=== PATIENT | male | born 1950 | race Caucasian/White ===

== ENCOUNTER 2020-02-11 23:41 | Emergency (ER) | payer MEDICARE, SELFPAY ==
[2020-02-12 00:01] VITALS: BP 133/73; PULSE 131; RESP 26; TEMP 38.7; O2SAT 97; BMI 34.4
--- NOTE | 2020-02-12 00:09 | W.ED.EXTPRO ---
HPI - Extremity Problem General: Chief complaint: Extremity Problem,Nontraumatic Stated complaint: GOUT Time Seen by Provider: 02/12/20 00:09 Source: patient Mode of arrival: ambulatory Limitations: no limitations History of Present Illness: HPI Narrative: Patient comes in today with complaints of a gout flare for the last 3 weeks. Patient reports that started about 3 weeks ago he was seen at [facility] and diagnosed with gout. Patient was started on steroids and was treated for his gout at that time. For last 2 to 3 days patient states he has had worsening symptoms of the pain and is now in his bilateral wrists, where before it was in his ankles. Patient reports just being in pain all over. Patient appears unwell. Patient appears in moderate pain. Review of Systems General: Reports: 10 or more systems reviewed and unremarkable except in HPI and below Musc: Reports: joint pain Physical Exam Const: COMMON NORMALS: no acute distress and patient oriented x3 GENERAL APPEARANCE: cooperative HENMT: COMMON NORMALS: normocephalic, TM's normal bilaterally and Normal external nose present HEAD & SCALP: normal to inspection and normocephalic NOSE: Normal external nose present TYMPANIC MEMBRANE: TM's normal bilaterally MOUTH: Normal oral and palatal mucosa present THROAT: posterior oropharynx normal Eye: GENERAL EYE: appearance normal, both eyes and all related structures Neck/C-Spine: COMMON NORMALS: full ROM Lymph: LYMPHATIC: no lymphadenopathy noted Chest: COMMONS NORMALS: normal inspection of the chest Resp: COMMON NORMALS: normal respiratory effort EFFORT & INSPECTION: Yes able to speak in complete sentences Cardio: COMMON NORMALS: regular rate and regular rhythm RATE: regular rate RHYTHM: regular rhythm GI: COMMON NORMALS: non-tender : COMMON NORMALS: Yes no CVA tenderness BLADDER/KIDNEY EXAM: Yes no CVA tenderness Back/Pelvis: COMMON NORMALS: no CVA tenderness and thoracic and lumbar spine normal to inspection Extremity: COMMON NORMALS: normal to inspection Neuro: COMMON NORMALS: patient oriented x3 and moves all extremities Psych: COMMON NORMALS: mental status grossly normal and cooperative Skin: COMMON NORMALS: no rashes or lesions noted GENERAL SKIN EXAM: no rashes or lesions noted Course Vital Signs: Vital signs: Vital Signs Temperature 101.7 F H 02/12/20 00:01 Pulse Rate 104 H 02/12/20 01:08 Respiratory Rate 20 H 02/12/20 01:08 Blood Pressure 142/69 08/22/20 01:08 Pulse Oximetry 96 02/12/20 01:08 MDM - Extremity (Nontraumatic) MDM Narrative: Medical decision making narrative: Patient presents today with complaints of arthralgia for 3 weeks. Patient was treated with steroids for concerns of gout. Patient appears well. Patient appears in moderate pain. Respirations were even lungs were clear to auscultation. Patient had no redness or swelling to the wrist. Patient complained of pain mainly at the wrist. Vital signs noted an elevation in temperature at 101.7. Differential diagnosis includes but not limited to infection of unknown source, gout, rheumatoid arthritis, urinary tract infection, pneumonia. Laboratory values noted elevation in white blood cell count, and elevation in blood glucose. Patient had some mild hyponatremia at 129. Analysis was positive for leukocyte. Chest x-ray was normal. Patient was medicated with ketorolac and morphine for his pain. Patient was given 1 g of Rocephin for concerns of infection. Suspect urinary tract infection along with gout flare. Reviewed this with patient and his bowels who reported understanding of care plan and need for follow-up. Lab Data: Labs: Lab Results 02/12/20 02/12/20 02/12/20 Range/Units 00:45 00:45 00:45 WBC 20.8 H (4.0-10.0) 10^3/ uL RBC 4.08 L (4.1-5.3) 10^6/u L Hgb 11.8 (11.7-16.6) g/dL Hct 38.5 L (42.0-52.0) % MCV 94.4 H (80-94) fL MCH 28.9 (28.0-34.0) pg MCHC 30.6 (30.0-36.0) g/dL RDW 12.5 (12.1-15.1) % Plt Count 384 (130-400) 10^3/c mm MPV 10.6 H (7.4-10.4) fL Neut % (Auto) 84.6 % Lymph % (Auto) 5.5 % [place] % (Auto) 8.6 % Eos % (Auto) 0.0 % Baso % (Auto) 0.3 % Neut # (Auto) 17.56 H (1.8-7.7) 10^3/u L Lymph # (Auto) 1.1 (0.8-4.8) 10^3/u L [place] # (Auto) 1.8 H (0.2-0.9) 10^3/u L Eos # (Auto) 0.0 (0.0-0.8) 10^3/u L Baso # (Auto) 0.1 (0.0-0.1) 10^3/u L Nucleated RBC % (a uto) 0 % Nucleated RBCs # 0.0 /100WBC Sodium 129 L (136-145) mmol/L Potassium 4.4 (3.5-5.1) mmol/L Chloride 92 L (98-107) mmol/L Carbon Dioxide 25 (22-29) mmol/L Anion Gap 16.4 (5-19) BUN 15 (8-23) mg/dL Creatinine 0.9 (0.7-1.2) mg/dL GFR Calculation 83.7 L (90-130) mL/min Glucose 283 H (65-115) mg/dL Calculated Osmolal ity 275 L (285-295) mOsm/k g Lactic Acid 1.3 (0.5-2.2) mmol/L Uric Acid 4.2 (3.4-7.0) mg/dL Calcium 9.2 (8.5-10.5) mg/dL Total Bilirubin 0.6 (0.15-1.2) mg/dL AST 17 (0-40) U/L ALT 40 (0-41) U/L Alkaline Phosphata se 78 (40-130) IU/L Total Protein 6.7 (6.6-8.7) g/dL Albumin 3.9 (3.5-5.2) g/dL Globulin 2.8 (1.3-4.6) g/dL Urine Color (Yellow) Urine Appearance (CLEAR) Urine pH (5-7) Ur Specific Gravit y (1.005-1.030) Urine Protein (Negative) Urine Glucose (UA) (Normal) Urine Ketones (Negative) Urine Blood (Negative) Urine Nitrate (Negative) Urine Bilirubin (NEGATIVE) Urine Urobilinogen (Negative) mg/dL Ur Leukocyte Ella ase (Negative) Urine RBC (0-2) /hpf Urine WBC (0-5) /hpf Ur Squamous Epith Cells (0-5) Amorphous Sediment Urine Bacteria (NONE) Hyaline Casts Urine Mucus 02/12/20 Range/Units 01:25 WBC (4.0-10.0) 10^3/ uL RBC (4.1-5.3) 10^6/u L Hgb (11.7-16.6) g/dL Hct (42.0-52.0) % MCV (80-94) fL MCH (28.0-34.0) pg MCHC (30.0-36.0) g/dL RDW (12.1-15.1) % Plt Count (130-400) 10^3/c mm MPV (7.4-10.4) fL Neut % (Auto) % Lymph % (Auto) % [place] % (Auto) % Eos % (Auto) % Baso % (Auto) % Neut # (Auto) (1.8-7.7) 10^3/u L Lymph # (Auto) (0.8-4.8) 10^3/u L [place] # (Auto) (0.2-0.9) 10^3/u L Eos # (Auto) (0.0-0.8) 10^3/u L Baso # (Auto) (0.0-0.1) 10^3/u L Nucleated RBC % (a uto) % Nucleated RBCs # /100WBC Sodium (136-145) mmol/L Potassium (3.5-5.1) mmol/L Chloride (98-107) mmol/L Carbon Dioxide (22-29) mmol/L Anion Gap (5-19) BUN (8-23) mg/dL Creatinine (0.7-1.2) mg/dL GFR Calculation (90-130) mL/min Glucose (65-115) mg/dL Calculated Osmolal ity (285-295) mOsm/k g Lactic Acid (0.5-2.2) mmol/L Uric Acid (3.4-7.0) mg/dL Calcium (8.5-10.5) mg/dL Total Bilirubin (0.15-1.2) mg/dL AST (0-40) U/L ALT (0-41) U/L Alkaline Phosphata se (40-130) IU/L Total Protein (6.6-8.7) g/dL Albumin (3.5-5.2) g/dL Globulin (1.3-4.6) g/dL Urine Color Yellow (Yellow) Urine Appearance Clear (CLEAR) Urine pH 5 (5-7) Ur Specific Gravit y 1.020 (1.005-1.030) Urine Protein Trace (Negative) Urine Glucose (UA) 1+ (Normal) Urine Ketones 1+ H (Negative) Urine Blood Neg (Negative) Urine Nitrate Negative (Negative) Urine Bilirubin 1+ H (NEGATIVE) Urine Urobilinogen Norm (Negative) mg/dL Ur Leukocyte Ella ase Trace H (Negative) Urine RBC 0-4 H (0-2) /hpf Urine WBC 0-4 H (0-5) /hpf Ur Squamous Epith Cells 0-4 H (0-5) Amorphous Sediment Trace Urine Bacteria Trace (NONE) Hyaline Casts 0-4 H Urine Mucus 4+ Discharge Plan Discharge Patient Disposition: Home Clinical Impression: Acute UTI, History of gout Arthralgia Qualifiers: Joint pain location: unspecified Qualified Code(s): M25.50 - Pain in unspecified joint Condition: Stable Prescriptions: New colchicine 0.6 mg tablet 0.6 mg PO BID Qty: 6 RF: 0 Bactrim DS 800-160 mg tablet 1 tab PO BID 14 Days Qty: 28 RF: 0 diclofenac sodium 75 mg tablet,delayed release (DR/EC) 75 mg PO BID Qty: 20 RF: 0 Discharge Orders: Discharge Order (Routine); Ordered 02/12/20 Ordered By: Nayan Lehman Referrals: Malissa Suresh DO [Primary Care Provider] - Discharge Diet: Usual diet Discharge Activity: Increase activity as tolerated Patient Instructions: Urinary Tract Infection in Men (ED) Activity Restrictions/Additional Instructions: Home and rest. Medications as directed. Use colchicine, take 2 tablets with prescription feeling and then repeat 1 tablet in 1 hour. You can repeat that in 3 days if needed. It is strictly for gout and will provide relief quickly. Use diclofenac for arthralgia. Take Bactrim as directed for antibiotic. Follow-up with primary care in 3 to 5 days for recheck. Return to the emergency room for worsening symptoms or new concerns. Coding Level of Care Code ED Human Factors Advisor Lead for [place] Fwd Exam Comprehensive
--- NOTE | 2020-02-12 00:20 | XR_ITS ---
WS: [id number] EXAM: AP CHEST: PORTABLE UPRIGHT DATE OF EXAM: 02/12/2020, 0120 hours COMPARISON: NONE HISTORY: Patient is 69 years old with fever. FINDINGS: The cardiac silhouette is normal in size. The mediastinal contours are normal other than minimal c alcified plaque in the aorta. The pulmonary vascularity is normal. Chronic lung changes are seen. Lungs are slightly hyperinflated. No area of consolidation. There is no effusion or pneumothorax. M ultiple old right rib fractures and right clavicle fracture noted. XR/XR chest 1V portable [id number] IMPRESSION: Chronic lung changes. No acute pulmonary disease. Multiple old right rib fractures and right clavicle fracture.
[2020-02-12] MEDS: sodium chloride 0.9% 500 ML IV (00:40)
[2020-02-12] MEDS: ketorolac 30 mg/mL INJ 15 MG IVP ×2 (00:45→02:57)
[2020-02-12 00:52] LABS: Basophils # 0.1 10^3/uL (0.0-0.1); Basophils % 0.3 %; Hematocrit 38.5 % (42.0-52.0); Hemoglobin 11.8 g/dL (11.7-16.6); Lymphocytes # 1.1 10^3/uL (0.8-4.8); Lymphocytes % 5.5 %; Mean Corpuscular HGB Conc 30.6 g/dL (30.0-36.0); Mean Corpuscular Hemoglobin 28.9 pg (28.0-34.0); Mean Corpuscular Volume 94.4 fL (80-94); Mean Platelet Volume 10.6 fL (7.4-10.4); Monocytes # 1.8 10^3/uL (0.2-0.9); Monocytes % 8.6 %; Neutrophils # 17.56 10^3/uL (1.8-7.7); Neutrophils % 84.6 %; Nucleated Red Blood Cells % 0 %; Platelet Count 384 10^3/cmm (130-400); Red Blood Count 4.08 10^6/uL (4.1-5.3); Red Cell Distribution Width 12.5 % (12.1-15.1); White Blood Count 20.8 10^3/uL (4.0-10.0)
[2020-02-12 01:08] VITALS: BP 142/69; PULSE 104; RESP 20; O2SAT 96
[2020-02-12 01:09] LABS: Lactic Sepsis W/Reflex 1.3 mmol/L (0.5-2.2)
[2020-02-12 01:23] LABS: Alanine Aminotransferase 40 U/L (0-41); Albumin Level 3.9 g/dL (3.5-5.2); Alkaline Phosphatase 78 IU/L (40-130); Anion Gap 16.4 (5-19); Aspartate Amino Transferase 17 U/L (0-40); Blood Urea Nitrogen 15 mg/dL (8-23); Calcium 9.2 mg/dL (8.5-10.5); Carbon Dioxide 25 mmol/L (22-29); Chloride 92 mmol/L (98-107); Creatinine Clr Calc Pharmacy 87.1898; Globulin 2.8 g/dL (1.3-4.6); Glomerular Filtration Rate 83.7 mL/min (90-130); Glucose 283 mg/dL (65-115); Osmolality Calculated 275 mOsm/kg (285-295); Potassium 4.4 mmol/L (3.5-5.1); Sodium 129 mmol/L (136-145); Total Bilirubin 0.6 mg/dL (0.15-1.2); Total Protein 6.7 g/dL (6.6-8.7); Uric Acid 4.2 mg/dL (3.4-7.0)
[2020-02-12 01:53] LABS: Add Urine Microscopic? YES; Bilirubin Urine 1+ (NEGATIVE); Blood Urine Neg (Negative); Glucose Urine UA 1+ (Normal); Ketones Urine 1+ (Negative); Leukocyte Esterase Urine Trace (Negative); Nitrate Urine Negative (Negative); Protein Urine Trace (Negative); Urine Appearance Clear (CLEAR); Urine Color Yellow (Yellow); Urobilinogen Urine Norm (Negative); pH Urine 5 (5-7)
[2020-02-12 01:58] LABS: Add Urine Culture? No; Amorphous Sediment Urine TRACE; Bacteria Urine TRACE; Hyaline Casts Urine 0-4; Mucus Urine 4+; RBC Urine 0-4 /hpf (0-2); Squamous Epithelial Cell Urine 0-4 (0-5); WBC Urine 0-4 /hpf (0-5)
[2020-02-12 02:57] VITALS: RESP 18
[2020-02-12] MEDS: morphine 4 mg/mL SDV 1 mL IVP (02:57)
[2020-02-12] MEDS: cefTRIAXone 1,000 MG in sodium chloride 0.9% (plus) 50 ML 100 MG IV (02:58)
--- NOTE | 2020-02-14 11:05 | PC.NURSE ---
Dr. mia requested that I contact the pt to see how he was feeling. I called via phone and the answered. She stated that the pt was feeling much better and was still taking the meds prescribed. No more fevers noted by her or the pt.
== END 2020-02-12 03:56 | disposition home or self-care (01) ==
PROVIDERS: Emergency Provider Nurse Practitioner Family; PCP Family Medicine
DX: N39.0 Urinary tract infection, site not specified (principal); M25.50 Pain in unspecified joint
CPT/HCPCS: 12345; 71045; 80053; 81001; 83605; 84550; 85025; 87040; 96365; 96375; 96376; 99282; 99284; J0696; J1885; J2270; J7040

== ENCOUNTER 2022-03-19 12:09 | Inpatient (IN) | payer MEDICARE, SELFPAY ==
[2022-03-19] VITALS (42 sets, daily range): BP systolic 74–156; BP diastolic 54–115; PULSE 132–162; RESP 12–33; TEMP 36.3–37.2; O2SAT 90–100; BMI 28.8
--- NOTE | 2022-03-19 12:54 | XR_ITS ---
WS: [id number] Exam: XR chest 1V portable [id number] Date/Time of Exam: 03/19/2022 12:58 PM Reason For Exam: dyspnea Comparison 02/12/2020. There is groundglass infiltrate in the right lower lung zone. There may also be some infiltrate in th e left retrocardiac region. The heart is enlarged. Pulmonary vascularity is increased. The lungs are fully expanded. Chronic blunting of the right costophrenic angle probably representing pleural thicke martha. The mediastinum is normal in contour. Bony structures are intact. XR/XR chest 1V portable [id number] IMPRESSION: 1. Groundglass infiltrate in the right lung base suggesting pneumonia. There m ay also be some infiltrate in the left retrocardiac region. This could be Covid pneumonia. 2. Cardiac enlargement with increased pulmonary vascularity. 3. Chronically blunted right costophrenic angle probably representing pleural t hickening.
--- NOTE | 2022-03-19 12:55 | ED_ITS ---
HPI - General Adult General: Chief complaint: Shortness of Breath/Dyspnea Stated complaint: Dr. Suresh sent for blood sugar Time Seen by Provider: 03/19/22 12:47 History of Present Illness: Patient is a 72-year-old male with a history of hypertension, COPD, CHF presenting to the emergency room with concerns of worsening dyspnea and fast heart rate. Patient was seen earlier today by . She was found to have glucose of over 800. Patient was then told to come to the emergency room for further evaluation. On arrival, patient tells me he has been feeling short of breath for about a month. Patient denies any fever/chills cough, productive sputum, chest pain, diarrhea melena hematochezia. No abdominal complaints. He denies any melena/hematochezia, or complaints. Onset: 1 month ago Duration:1 month Location:home Severity:moderate Associated symptoms: Reports dyspnea; Deny chest pain, nausea, rash, palpitations or vomiting Review of Systems Const: Denies: fever(s) or chills Eyes: Denies: change in vision ENMT: Denies: mouth pain Card: Denies: chest pain or palpitations Resp: Reports: dyspnea; Denies: non-productive cough GI: Denies: abdominal pain, nausea, vomiting or diarrhea : Denies: dysuria Musc: Denies: extremity pain Skin/Breast: Denies: rash or new lesions Neuro: Denies: weakness in extremities Psych: Reports: other (Normal mood) Tk/Lymph: Denies: easy bruising PFSH ED PFSH: Medical History Atrial flutter COPD (chronic obstructive pulmonary disease) Hypercapnic respiratory failure Hypertension Hypoxemia Social History Smoking and tobacco status: former smoker Alcohol intake: never Substance/Drug Use: never Physical Exam Const: COMMON NORMALS: alert HENMT: COMMON NORMALS: atraumatic HEAD & SCALP: atraumatic MOUTH: moist mucous membranes abnormal Eye: COMMON NORMALS: EOMs intact bilaterally and conjunctivae normal CONJUNCTIVA: Yes conjunctivae normal Neck/C-Spine: COMMON NORMALS: full ROM and supple Resp: COMMON NORMALS: normal respiratory effort and clear to auscultation bilaterally AUSCULTATION: clear to auscultation bilaterally OTHER: +hyperpnea Cardio: RATE: tachycardic GI: COMMON NORMALS: Soft to palpation and non-tender PALPATION: Yes Soft to palpation OTHER: No focal TTP. NO guarding rebound, guarding, rigidity. No CVA tenderness to percussion. Neg Lowery/Neg McBurney's point tenderness, no suprabupic tenderness to palpation. Extremity: COMMON NORMALS: full ROM Neuro: SENSORIUM/ORIENTATION: Yes alert MOTOR EXAM: No Abnormal motor strength present and Other motor observations present (no focal motor deficits) OTHER: 1+ lower extremity edema AAOx1 confusion, moving all extremities History limited by AMS Psych: COMMON NORMALS: speech normal SPEECH: Yes normal speech MOOD & AFFECT: Yes euthymic mood Course Vital Signs: Vital signs: Vital Signs Temperature 97.4 F L 03/19/22 12:20 Pulse Rate 141 H 03/19/22 12:20 Respiratory Rate 18 03/19/22 12:20 Blood Pressure 132/76 03/19/22 12:20 Pulse Oximetry 94 03/19/22 12:20 Oxygen Delivery Me thod 03/19/22 12:20 Oxygen Flow Rate 4 03/19/22 12:20 MDM - General Adult Medical Decision Making Patient is a 72-year-old male with a history of hypertension, COPD, CHF presenting to the emergency room with concerns of worsening dyspnea and fast heart rate. Physical exam, patient is noted to be AAO x1, moving all extremity, confused and somnolent with hyperpnea Patient was found to be in regular narrow complex tachycardia on the applications programmer. Initial glucose of 774. Patient is noted to have an anion gap with positive serum ketones findings consistent with DKA today. Patient also has a white count 25.4. X-ray chest shows possible pneumonia. Patient was vancomycin, cefepime, azithromycin. Patient received LR and is currently on an insulin drip. EKG showed atrial fibrillation with RVR. Patient received 20 mg of Cardizem. I suspect the atrial fibrillation is likely compensatory. Pending UA and COVID at this time. Disposition: admission Lab Data : 03/19/22 13:19 03/19/22 13:19 Radiology Impressions Chest X-Ray 03/19/22 12:54 IMPRESSION: 1. Groundglass infiltrate in the right lung base suggesting pneumonia. There may also be some infiltrate in the left retrocardiac region. This could be Covid pneumonia. 2. Cardiac enlargement with increased pulmonary vascularity. 3. Chronically blunted right costophrenic angle probably representing pleural thickening. Laboratory Results WBC 25.4 10^3/uL (4.0-10.0) H 03/19/22 13:19 RBC 4.82 10^6/uL (4.1-5.3) 03/19/22 13:19 Hgb 14.1 g/dL (11.7-16.6) 03/19/22 13:19 Hct 47.7 % (42.0-52.0) 03/19/22 13:19 MCV 99.0 fl (80-94) H 03/19/22 13:19 MCH 29.3 pg (28.0-34.0) 03/19/22 13:19 MCHC 29.6 g/dL (30.0-36.0) L 03/19/22 13:19 RDW 13.7 % (12.1-15.1) 03/19/22 13:19 Plt Count 327 10^3/cmm (130-400) 03/19/22 13:19 MPV 13.1 fL (7.4-10.4) H 03/19/22 13:19 Neut % (Auto) 86.5 % 03/19/22 13:19 Lymph % (Auto) 4.2 % 03/19/22 13:19 [place] % (Auto) 7.9 % 03/19/22 13:19 Eos % (Auto) 0.0 % 03/19/22 13:19 Baso % (Auto) 0.2 % 03/19/22 13:19 Neut # (Auto) 21.97 10^3/uL (1.8-7.7) H 03/19/22 13:19 Lymph # (Auto) 1.1 10^3/uL (0.8-4.8) 03/19/22 13:19 [place] # (Auto) 2.0 10^3/uL (0.2-0.9) H 03/19/22 13:19 Eos # (Auto) 0.0 10^3/uL (0.0-0.8) 03/19/22 13:19 Baso # (Auto) 0.1 10^3/uL (0.0-0.1) 03/19/22 13:19 Nucleated RBC % (auto) 0 % 03/19/22 13:19 Nucleated RBCs # 0.0 /100WBC 03/19/22 13:19 Specimen Type Arterial 03/19/22 12:56 Sample Site Radial, left 03/19/22 12:56 ABG pH 7.13 (7.35-7.45) L* 03/19/22 12:56 ABG pCO2 27.3 mmHg (35-45) L 03/19/22 12:56 ABG pO2 92.7 mmHg (80.0-100.0) 03/19/22 12:56 ABG HCO3 9.2 mmol/L (22-26) L 03/19/22 12:56 ABG O2 Saturation 96.0 03/19/22 12:56 ABG Base Excess -18.5 mmol/L (-2.0-2.0) L 03/19/22 12:56 Dercik Test Pos 03/19/22 12:56 A-a O2 Gradient 13.1 mmHg (5-10) H 03/19/22 12:56 Hematocrit 42.3 % (42-52) 03/19/22 12:56 Hgb O2 Saturation 93.9 % (95-100) L 03/19/22 12:56 Carboxyhemoglobin 1.4 %THgb (0.4-20.1) 03/19/22 12:56 Methemoglobin 0.8 % (0.4-1.5) 03/19/22 12:56 Total Hemoglobin 13.8 g/dL (14-18) L 03/19/22 12:56 Sodium 132.0 mmol/L (131-143) 03/19/22 12:56 Potassium 4.1 mmol/L (3.5-5.0) 03/19/22 12:56 Glucose 762.0 mg/dL (70-115) H 03/19/22 12:56 Ionized Calcium 1.3 mmol/L (1.1-1.4) 03/19/22 12:56 O2 Delivery Device Nc 03/19/22 12:56 O2 Liters/Min 3.0 % 03/19/22 12:56 FiO2 32.0 % 03/19/22 12:56 Guest Experience Manager ID Monro 03/19/22 12:56 Sodium 129 mmol/L (136-145) L 03/19/22 13:19 Potassium 5.4 mmol/L (3.5-5.1) H 03/19/22 13:19 Chloride 87 mmol/L (98-107) L 03/19/22 13:19 Carbon Dioxide 9 mmol/L (22-29) L 03/19/22 13:19 Anion Gap 38.4 (5-19) H 03/19/22 13:19 BUN 22 mg/dL (8-23) 03/19/22 13:19 Creatinine 1.4 mg/dL (0.7-1.2) H 03/19/22 13:19 GFR Calculation Not Reportable 03/19/22 13:19 Glucose 774 mg/dL (65-115) H* 03/19/22 13:19 POC Glucose > 600 mg/dL (70-110) H* 03/19/22 14:20 Calculated Osmolality 309 mOsm/kg (285-295) H 03/19/22 13:19 Lactate 3.2 mmol/L (0.5-2.2) H 03/19/22 13:56 Calcium 9.4 mg/dL (8.5-10.5) 03/19/22 13:19 Total Bilirubin 0.4 mg/dL (0.15-1.2) 03/19/22 13:19 AST 12 U/L (0-40) 03/19/22 13:19 ALT 13 U/L (0-41) 03/19/22 13:19 Alkaline Phosphatase 84 U/L (40-130) 03/19/22 13:19 Troponin T Baseline 68 ng/L (0-15) H 03/19/22 13:19 NT-Pro-B Natriuret Pep 6212 pg/mL (0-125) H 03/19/22 13:19 Total Protein 6.7 g/dL (6.6-8.7) 03/19/22 13:19 Albumin 3.7 g/dL (3.5-5.2) 03/19/22 13:19 Globulin 3.0 g/dL (1.3-4.6) 03/19/22 13:19 Lipase 30 U/L (13-60) 03/19/22 13:19 Serum Ketones Positive (Negative) H 03/19/22 13:19 Imaging Data Other Imaging: Radiologist's impression: [address] [place] [address] XRay Report Signed Patient: Randal Banks Unit #: [id number] : 1950 Age/Sex: 72 / M ADM Date: 03/19/22 Loc: ER Room/Bed: Attending Dr: Ordering Provider/Ordering MD: Chava Blankenship MD Date of Service: 03/19/22 Procedure(s): XR chest 1V portable [id number] Accession Number(s): [id number] Report Number: [id number] WS: [id number] Exam: XR chest 1V portable [id number] Date/Time of Exam: 03/19/2022 12:58 PM Reason For Exam: dyspnea Comparison 02/12/2020. There is groundglass infiltrate in the right lower lung zone. There may also be some infiltrate in the left retrocardiac region. The heart is enlarged. Pulmonary vascularity is increased. The lungs are fully expanded. Chronic blunting of the right costophrenic angle probably representing pleural thickening. The mediastinum is normal in contour. Bony structures are intact. XR/XR chest 1V portable [id number] IMPRESSION: 1. Groundglass infiltrate in the right lung base suggesting pneumonia.? There may also be some infiltrate in the left retrocardiac region. This could be Covid pneumonia. 2. Cardiac enlargement with increased pulmonary vascularity. 3. Chronically blunted right costophrenic angle probably representing pleural thickening. ? Dictated By: Gary Willett DO Signed By: Gary Willett DO Signed Date/Time: 03/19/22 1348 DD/ 1345 Critical Care Time Critical Care Time: Critical Care Time: Yes Total Critical Care Time: 36 Attestation: The high probability of a clinically significant, sudden or life threatening deterioration of the patient's endocrinological system(s) required my full and direct attention, intervention and personal management. The critical care time is as shown. This time is in addition to time spent performing any reported procedures but includes the following: [x] Data and vital sign review and interpretation [x] Patient assessment, examination and intervention [x] Documentation [x] Medication orders and management Discharge Plan Discharge Patient Disposition: Admitted As Inpatient Clinical Impression: Atrial fibrillation, DKA (diabetic ketoacidosis), Pneumonia, Altered mental status Coding Level of Care Code ED Camera Systems Engineer for Chg Fwd Exam Comprehensive
--- NOTE | 2022-03-19 13:00 | ECG_ITS ---
[facility] Test Date: 2022-03-19 Pat Name: Randal Banks Department: Room: Gender: Male Overlocker: : 1950 Requested By: Chava Blankenship Order Number: [id number] Lizabeth MD: Mechelle Álvarez M.D. Measurements Intervals [place] Rate: 180 P: PA: QRS: -68 QRSD: 111 T: 187 QT: 263 QTc: 455 Interpretive Statements ATRIAL FIBRILLATION WITH RAPID VENTRICULAR RESPONSE LEFT ANTERIOR FASCICULAR BLOCK [QRS AXIS <= -45, QR IN I, RS IN II] ST DEVIATION AND MODERATE T-WAVE ABNORMALITY, CONSIDER LATERAL ISCHEMIA [-0.1+ mV T-WAVE IN I/aVL/V5/V6] CRITICAL TEST RESULT No previous ECG available for comparison Electronically Signed On 03-20-2022 6:04:50 CDT by Mechelle Álvarez M.D. [id number]
[2022-03-19 13:08] LABS: ABG PCO2 27.3 mmHg (35-45); Arterial Blood Gas Hematocrit 42.3 % (42-52); Base Excess ABG -18.5 mmol/L (-2.0-2.0); Blood Gas Allen Test Pos; Blood Gas Sample Type Arterial; Carboxyhemoglobin 1.4 %THgb (0.4-20.1); HCO3 ABG 9.2 mmol/L (22-26); HGB O2 Sat 93.9 % (95-100); Ionized Calcium Level - ABG 1.3 mmol/L (1.1-1.4); Methemoglobin 0.8 % (0.4-1.5); PO2 ABG 92.7 mmHg (80.0-100.0); Potassium Level - ABG 4.1 mmol/L (3.5-5.0); Total Hemoglobin 13.8 g/dL (14-18)
[2022-03-19 13:09] LABS: ABG PH Result 7.13 (7.35-7.45); Alveolar-Arterial Oxygen Gradi 13.1 mmHg (5-10); Blood Gas Operator Identificat MONRO; Blood Gas Sample Site Radial, left; Oxygen Device NC
[2022-03-19 13:32] LABS: Basophils # 0.1 10^3/uL (0.0-0.1); Basophils % 0.2 %; Hematocrit 47.7 % (42.0-52.0); Hemoglobin 14.1 g/dL (11.7-16.6); Lymphocytes # 1.1 10^3/uL (0.8-4.8); Lymphocytes % 4.2 %; Mean Corpuscular HGB Conc 29.6 g/dL (30.0-36.0); Mean Corpuscular Hemoglobin 29.3 pg (28.0-34.0); Monocytes % 7.9 %; Neutrophils # 21.97 10^3/uL (1.8-7.7); Neutrophils % 86.5 %; Nucleated Red Blood Cells % 0 %; Platelet Count 327 10^3/cmm (130-400); Red Blood Count 4.82 10^6/uL (4.1-5.3); Red Cell Distribution Width 13.7 % (12.1-15.1); White Blood Count 25.4 10^3/uL (4.0-10.0)
[2022-03-19 13:40] LABS: Mean Platelet Volume 13.1 fL (7.4-10.4)
[2022-03-19 13:47] LABS: Ketone (Acetest) Serum Positive (Negative)
[2022-03-19] MEDS: insulin regular-human 250 UNIT in sodium chloride 0.9% 250 ML 16 UNIT IV (13:54)
[2022-03-19 13:57] LABS: Troponin(5th) Baseline 68 ng/L (0-15)
[2022-03-19] MEDS: lactated ringers 1,000 ML 999 ML IV ×2 (13:57→15:07)
[2022-03-19] MEDS: dilTIAZem 5 mg/mL SDV 5 mL 20 MG IVP (13:59)
[2022-03-19 14:04] LABS: Albumin Level 3.7 g/dL (3.5-5.2); Alkaline Phosphatase 84 U/L (40-130); Blood Urea Nitrogen 22 mg/dL (8-23); Calcium 9.4 mg/dL (8.5-10.5); Chloride 87 mmol/L (98-107); Lipase 30 U/L (13-60); Sodium 129 mmol/L (136-145); Total Bilirubin 0.4 mg/dL (0.15-1.2); Total Protein 6.7 g/dL (6.6-8.7)
[2022-03-19 14:06] LABS: Alanine Aminotransferase 13 U/L (0-41); Aspartate Amino Transferase 12 U/L (0-40); Potassium 5.4 mmol/L (3.5-5.1)
[2022-03-19 14:09] LABS: NT Pro B Type Natriuretic Pept 6212 pg/mL (0-125)
[2022-03-19] MEDS: lidocaine 1% 5 ML in potassium chloride premix 100 ML 25 ML IV ×2 (14:13→18:32)
[2022-03-19 14:17] LABS: Osmolality Calculated 309 mOsm/kg (285-295)
[2022-03-19 14:23] LABS: Glucose Point of Care > 600 mg/dL (70-110)
[2022-03-19 14:23] LABS: Glucose Point of Care > 600 mg/dL (70-110)
[2022-03-19 14:29] LABS: Anion Gap 38.4 (5-19); Carbon Dioxide 9 mmol/L (22-29); Glucose 774 mg/dL (65-115)
[2022-03-19 14:37] LABS: Lactate (Lactic Acid level) 3.2 mmol/L (0.5-2.2)
--- NOTE | 2022-03-19 14:54 | ECG_ITS ---
[facility] Test Date: 2022-03-19 Pat Name: Randal Banks Department: Room: ICU07 Gender: Male Lead Sharepoint Developer: : 1950 Requested By: Chava Blankenship Order Number: [id number] Reading MD: Mechelle Álvarez M.D. Measurements Intervals [place] Rate: 165 P: [place]: QRS: -57 QRSD: 114 T: 263 QT: 277 QTc: 459 Interpretive Statements ATRIAL FIBRILLATION WITH RAPID VENTRICULAR RESPONSE LEFT ANTERIOR FASCICULAR BLOCK [QRS AXIS <= -45, QR IN I, RS IN II] ST DEVIATION AND MODERATE T-WAVE ABNORMALITY, CONSIDER LATERAL ISCHEMIA Compared to ECG 03/19/2022 13:00:39 No significant changes Electronically Signed On 03-20-2022 6:09:35 CDT by Mechelle Álvarez M.D. [id number]
[2022-03-19 15:01] LABS: Add Urine Culture? Yes; Add Urine Microscopic? YES; Amorphous Sediment Urine 2+ /hpf; Bacteria Urine TRACE /hpf; Bilirubin Urine Neg (Negative); Blood Urine 3+ (Negative); Glucose Urine UA 4+ (Normal); Ketones Urine 2+ (Negative); Leukocyte Esterase Urine Negative; Mucus Urine 2+ /hpf; Nitrate Urine Negative; Protein Urine 1+; RBC Urine TOO NUMEROUS TO CNT /hpf (0-2); Specific Gravity, Urine 1.015 (1.005-1.030); Squamous Epithelial Cell Urine 0-4 /hpf (0-5); Urine Appearance SL Hazy (CLEAR); Urine Color Yellow (Yellow); Urobilinogen Urine Norm (Negative); WBC Urine 0-4 /hpf (0-5); pH Urine 5 (5-7)
[2022-03-19] MEDS: cefepime 1,000 MG in sodium chloride 0.9% (plus) 50 ML 100 MG IV (15:04)
[2022-03-19 15:10] LABS: Glucose Point of Care 559 mg/dL (70-110)
--- NOTE | 2022-03-19 15:26 | PM.HP ---
Providers/Chief Complaint Admitting Physician: Ml Fowler MD Primary Care Provider: Malissa Suresh DO Chief Complaint: Dr. Suresh sent for blood sugar History of Present Illness Randal Banks is a 72 year old male who presented to the emergency room with chief complaint of elevated blood sugar. He had been seen in his primary care provider's office yesterday and had blood work done. Blood sugars there showed significant elevation in the 800s and he was called and told to come to the emergency room. History is obtained from his , available outside medical records and ER provider. I am not able to get much information from the patient himself. He will attempt to answer questions. Some answers makes sense. Other answers do not. Most recently he was able to tell me that he is in the intensive care unit. He is actually in the emergency room but that is where he will be going so it is close. From what I can gather, patient has not felt very well for about a month. In mid January he had COVID. He was treated with dexamethasone and also received a course of molnipiravir. He had some improvement from his worst COVID symptoms but has not fully recovered. Prior to having COVID he was on 3 L of oxygen by nasal cannula. Since then he has been requiring 4 L. He has had a couple of courses of steroids, a round of Levaquin and adjustments made to his breathing medications. Despite this he has continued to have difficulty breathing. All I can get is that he has been short of breath and has had a cough intermittently, nonproductive. No report of any hemoptysis. No complaints of chest pain or pleurisy. He does chew tobacco but no longer smokes cigarettes. He has had general malaise, weakness and fatigue. reports that he started being confused today. She had been out of town for sounds like a couple of weeks until 10 to 14 days ago. No report of any vomiting or diarrhea. Review of available outside records indicate that EKG done at primary care provider's office on March 06 or showed atrial flutter with rapid ventricular response. He was started on metoprolol. He had a couple of episodes of syncope per documentation after starting on the metoprolol. Dose was adjusted. He is currently on 25 mg twice a day and he did take a dose this morning. After being called be PCP office, he came in by private vehicle to the emergency room. On arrival here blood sugar was not able to register on glucometer. Serum glucose was 747. Initial heart rate was 141. Blood pressure was stable. Oxygen saturation was 94% on 4 L. Patient was found to have evidence of diabetic ketoacidosis. He is not a known diabetic. I was able to find records of previous hyperglycemia with sugars in the low 200s back in 2019 during an ER visit. He has had dry mouth, thirst and dizziness. Twelve-lead EKG showed atrial fibrillation with rapid ventricular response. Chest x-ray showed right lower lobe infiltrate and possible left retrocardiac infiltrate along with increased pulmonary vascularity. Hospitalist were contacted for admission. Patient has received fluid bolus and started on insulin drip. Additionally he received broad-spectrum antibiotics. Patient is in critical condition at the present time. Per he has not had any beverages containing alcohol in several days since he has been feeling bad. Usual intake varies from none to several beers per day. No access to ethylene glycol or other hyperosmolar soluents per discussion with . Initial Anion Gap 38 with lactic acid 3.2. Review of Systems General: Reports: ROS unobtainable due to medical condition and ROS unobtainable due to mental status Medications/Allergies Home Medications Medication Instructions Recorded Confirmed Last Taken Type diclofenac sodium 75 mg 75 mg PO BID #20 tabs 02/12/20 Unknown Rx tablet,delayed release albuterol sulfate 90 mcg/actuation 2 puff inhalation Q6H PRN 03/19/22 03/19/22 Unknown History aerosol inhaler Shortness Of Breath Or Wheezing amlodipine 10 mg tablet 10 mg PO DAILY 03/19/22 03/19/22 Unknown History furosemide 20 mg tablet 20 mg PO DAILY 03/19/22 03/19/22 Unknown History hydrocodone 5 mg-acetaminophen 325 1 tab PO Q4H PRN Pain 03/19/22 03/19/22 Unknown History mg tablet metoprolol tartrate 25 mg tablet 25 mg PO BID 03/19/22 03/19/22 Unknown History simvastatin 20 mg tablet 20 mg PO BEDTIME 03/19/22 03/19/22 Unknown History tamsulosin 0.4 mg capsule 0.4 mg PO BID 03/19/22 03/19/22 Unknown History Allergies Allergy/AdvReac Type Severity Reaction Status Date / Time prednisone AdvReac Severe DKA Verified 03/19/22 17:59 PFSH Acute PFSH: Medical History (Updated 03/19/22 @ 19:53 by Ml Fowler MD) Atrial flutter First identified 03/06/2022 Chronic respiratory failure with hypoxia and hypercapnia COPD (chronic obstructive pulmonary disease) COVID-19 (01/2022) Gout Hyperlipidemia Hypertension Osteoarthritis Prostatic hypertrophy Surgical History (Updated 03/19/22 @ 16:11 by Ml Fowler MD) History of hernia repair Family History (Updated 03/19/22 @ 15:27 by Ml Fowler MD) Other CAD (coronary artery disease) Cancer Hypertension Stroke Social History (Updated 03/19/22 @ 20:21 by Ml Fowlre MD) Smoking and tobacco status: current every day smoker smokeless tobacco Smokeless tobacco details: former cigarette use, now uses smokeless tobacco Alcohol intake: current Alcohol type: beer Substance/Drug Use: never Household members: spouse Vitals/I&O/Wt Last Vital Signs Temp 97.4 F L 03/19/22 12:20 Pulse 141 H 03/19/22 12:20 Resp 18 03/19/22 12:20 BP 132/76 03/19/22 12:20 Pulse Ox 94 03/19/22 12:20 O2 Del Method 03/19/22 12:20 O2 Flow Rate 4 03/19/22 12:20 03/19/22 03/19/22 03/19/22 06:59 14:59 22:59 Intake Total 1000 / 1000 Balance 1000 / 1000 Weight last 48 hrs Weight 83.461 kg Physical Exam Narrative: Constitutional: Sleepy but easily arousable, some of what he says does not make any sense and other responses are clear, looks very ill acutely and also chronically ill HEENT: Bitemporal wasting otherwise normocephalic, extraocular movements are grossly intact, pupils are equally reactive, nasopharynx with dry membranes, oropharynx with very dry membranes, poor and limited dentition Neck: Supple, no JVD Respiratory: Shallow, tachypneic respirations, Kussmaul pattern, nasal flaring, blowing/puffing out cheeks though not really with pursed lips per se, belly breathing, mild intercostal retractions, decreased breath sounds bases and posteriorly, no wheezes noted, no rhonchi Cardiovascular: Tachycardic regular rhythm, no murmurs or rubs noted, capillary refill is right at 3 seconds, has some acrocyanosis, pulses are equal x4 Abdomen: Soft, no areas of tenderness noted, decreased bowel sounds : Some erythema noted of the scrotum but otherwise normal external genitalia, Marrufo catheter in place with dark yellow urine Extremities: 3+ edema, no palpable cords or obvious calf tenderness, extremities are cool, mottling predominantly of the feet, not extending beyond the ankles, no tenderness noted at joints but patient does not like being poked/touched during examination Skin: Dry, cool, scattered iatrogenic bruises from care provided recently, a few minor sores, sacral area not currently examined due to respiratory status and overall clinical condition, overall has a dusky appearance Neuro: Handgrip is equal bilaterally, will follow simple commands with focused explanations, restless and does move all extremities, speech is clear when he takes the time to focus otherwise sounds mumbled, face symmetric, no involuntary movements noted Psych: Normal affect for the degree of illness he currently has Data : 03/19/22 16:57 03/19/22 16:57 Micro: Microbiology 03/19/22 13:56 Blood Culture - Preliminary Blood SPECIMEN COLLECTED 03/19/22 13:56 Blood Culture - Preliminary Blood SPECIMEN COLLECTED A&P Assessment and plan (1) DKA (diabetic ketoacidosis): Patient not known to be diabetic. Review of records indicates that he has had steroids a few times over the last month due to worsening respiratory status. Prior blood sugar here in 2019 was elevated at 283. Today at presentation blood sugar 774. Had been 840 day prior to admission per PCP labs. Has associated clinical dehydration, elevated creatinine, pseudohyponatremia, anion gap of 38, alteration in mental status, tachypnea and tachycardia, leukocytosis. 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 Patient and unaware of arrhythmia. No prior history. Was started on metoprolol secondary to tachycardia and had a couple syncope episodes initially, persistent dizziness reported but could be from other acute issues rather than medication. With covid last month, continued respiratory issues of cough and shortness of breath, could be secondary to respiratory disease acutely (covid, pneumonia, bronchitis) and chronically (COPD), acute metabolic derangements, acute volume status and the like. More concerning is the possibility of a thromboembolic event, esepcially with limited activity lately and covid last month. Primary cardiovascular event also within differential with known history of tobacco abuse, hypertension and hyperlipidemia. No known prior coronary artery disease diagnosis. No response to diltiazem IVP in ED No response with fluids administered this far No response to metoprolol IVP in ED No improvement with intubation and sedation Maintaining blood pressure Limited echocardiogram shows likely reduced ejection fraction there was very suboptimal study given current degree of tachycardia and pulmonary status. No indication of right ventricular enlargement but again limited study. Pending recent lab results will consider alternative treatments such as esmolol, amiodarone, digoxin. Check TSH Replace electrolytes as indicated Repeat echo when heart rate improves Continue serial cardiac enzymes and ekgs Cardiology consultation CTA chest when renal function improves Check D dimer and venous dupplex lower extremities presently Empiric lovenox currently (4) Pneumonia: Present on admisison. Also with possible left retrocardiac infiltrate. Had COVID last month, treated with steroids, molnupiraivir. Has been on increased oxygen since that time at 4L [facility] (versus 3L prior to that). Treated with additional steroids and levaquin subsequently for COPD exacerbations. Blood culture Sputum culture MRSA screen, Influenza, legionella and bacterial antigens Cover with carbenepenem, vancomycina nd levaquin initially COVID PCR negative at admission Check Procalcitonin, CRP for comparative values Qualifiers: Laterality: right Lung location: lower lobe of lung Pneumonia type: due to unspecified organism Qualified Code(s): J18.9 - Pneumonia, unspecified organism (5) Acute on chronic respiratory failure with hypoxia and hypercapnia: Serial ABGs and clinical respiratory and mental status monitored while patient in ED and upon transfer to ICU. With persistent tachypnea, accessory muscle use, oxygen requirements and mentation decision made to proceed with intubation/ Reviewed with as well as a [id number] who is a nurse (with permission/request) and answered questions, consent obtained. Has known COPD, recent COVID, pneumonia, fluid overload as contributing factors in addition to metabolic abnormalities. No known history of CHF or CAD. Sits in recliner a lot with legs down. Chronically on lasix for hypertension, but unclear how regularly he takes it. Pulmonary toilet, including inhaled steroids Avoiding systemic steroids secondary to DKA Other pulmonary care as needed Ventilatory support Will need lasix at some point in time Wean as able Sedation with vacations Oral care (6) Type 2 myocardial infarction: Secondary to arrhythmia, respiratory status, metabolic issues; cannot completely rule out primary cardiac process, especially with grossly reduced systolic function on limited, suboptimal echo. Chronically on statin therapy for hyperlipidemia, diuretics and calcium channel mamta for hypertension, recently added beta blockade for recently identified arrhythmia. No known CAD or CHF history. + tobacco use. Family history heart disease in outside records, details unknown. Serial cardiac enzymes/EKGs Cardiology consultation Continue statin CK 119 Aspirin Check lipids Lovenox ordered Repeat echo when heart rate improves Monitor overall volume status closely, diuretics as needed Recheck uric acid in am, has been prescribed allopurinol in the past Plan Elevated creatinine from prior values, at risk for progression to acute kidney injury, will monitor output and renal function Elevated lactic acid, tachycardia, leukocytosis - clinically at this time appears to be secondary to DKA and cardiopulmonary issues (COPD, afib/flutter, type II DC) more so than acute infectious source, maintaining blood pressure, but severe sepsis from infection is within the differential, being covered empirically with antibiotics, in addition to what is mentioned above, urine culture is pending Prostatic hypertrophy, presumptive diagnoses based on Flomax prescription, flomax presently held with report of syncope, likely resume at lower dose once stable, may have been a recently started medication PPI SCDs fro DVT prophylaxis Findings, concerns and plans as described above has been discussed with patient's as well as with essentially soon-to-be [id number] Danielle who is a nurse in [place] ([phone]). Both were given an opportunity to ask questions. Depending on clinical course may require home health or even potentially placement for rehabilitation upon discharge Anticipate potential need for diabetic education and diabetic medication management, adrenal insufficiency education, adjustment to cardiac medications, possibly adjustment to respiratory medicines and close outpatient follow-up. Full code as per discussion with in the presence of Mr. Banks. He was not able to say much beyond I want to live quite consistently when asked about CODE STATUS in different ways. Procedures Central Line Placement^ Right Femoral: Time out performed: Yes Patient placed on monitor/pulse ox: Yes MD prep: mask, gown and gloves Central line prep: Chlorhexidine scrub and sterile drapes applied Local anesthesia used: lidocaine 1% Amount of anesthesia used (ml): 3 Ultrasound used for placement: No Central line lumen inserted: triple Post procedure: sutured in place, good blood return, all ports aspirated, flushed, capped and sterile dressing applied Patient tolerated procedure: well Complications: none Additional comments: Central line placed by Dr Waters Intubation Time out performed: Yes Sedative: etomidate Mg given: 20 Paralytic: rocuronium Mg given: 50 Laryngoscope: fiber optic video scope Assist device used: fiber optic device ET tube size: 8 ET tube uncuffed: No Tube secured depth (cm): 23 Tube secured location: lips Tube placement confirmation: visualized tube passing through cords, equal breath sounds bilaterally, no breath sounds over epigastrium and color change noted Patient tolerated procedure: well Intubation complications: none Additional comments: ETT placed by nc CXR shows ETT at C4, pushed in 1 cm, leaving 2 cm above the moses. NGT noted at GE junction on initial CXR, pushed in with repeat imaging showing tube curled in stomach bubble. Attestations Medical Necessity Statement*: Anticipated stay greater than 2 midnights in this gentleman who is critically ill currently with diabetic ketoacidosis in someone not known to be diabetic, acute on chronic respiratory failure, atrial fibrillation with rapid ventricular response, pneumonia, metabolic encephalopathy. Plans are as noted above. Critical Care Time: The high probability of a clinically significant, sudden or life threatening deterioration of the patient's cardiopulmonary and endocrine as well as renal system(s) required my full and direct attention, intervention and personal management. The critical care time is as shown. 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
[2022-03-19 15:30] LABS: ABG PCO2 32.9 mmHg (35-45); Arterial Blood Gas Hematocrit 41.1 % (42-52); Base Excess ABG -14.1 mmol/L (-2.0-2.0); Blood Gas Allen Test Pos; Blood Gas Sample Type Arterial; Carboxyhemoglobin 1.2 %THgb (0.4-20.1); HCO3 ABG 12.8 mmol/L (22-26); HGB O2 Sat 94.7 % (95-100); Ionized Calcium Level - ABG 1.3 mmol/L (1.1-1.4); Methemoglobin 0.7 % (0.4-1.5); Oxygen Saturation ABG 96.6; PO2 ABG 88.2 mmHg (80.0-100.0); Potassium Level - ABG 3.3 mmol/L (3.5-5.0); Total Hemoglobin 13.4 g/dL (14-18)
[2022-03-19 15:31] LABS: Alveolar-Arterial Oxygen Gradi 12.8 mmHg (5-10); Blood Gas Operator Identificat MONRO; Blood Gas Sample Site Radial, right; Oxygen Device NC
[2022-03-19] MEDS: metoprolol tartrate 1 mg/1 mL SDV 5 mL 5 MG IVP (15:46)
[2022-03-19 15:56] LABS: Troponin 5 2HR 71.76 ng/L (0-15)
[2022-03-19 16:01] LABS: Troponin 5 2HR Delta 3.76 ABS# (0-10)
--- NOTE | 2022-03-19 16:04 | USCV_ITS ---
Randal Banks Age: 72 Gender: M : 1950 Exam Date: 03/19/2022 16:10 Ordering Phys: Ml Fowler MD Technologist: Roro Grace [place] [facility] [place]: Resp failure BP: 123 / 102 HR: 148 Rhythm: Sinus Technical Quality: Adequate MEASUREMENTS (Male / Female) Normal Values 2D ECHO LV Diastolic Diameter PLAX 5.3 cm 4.2 - 5.9 / 3.9 - 5.3 cm LV Systolic Diameter PLAX 4.6 cm IVS Diastolic Thickness 1.2 cm 0.6 - 1.0 / 0.6 - 0.9 cm IVS Systolic Thickness 0.9 cm LVPW Diastolic Thickness 0.5 cm 0.6 - 1.0 / 0.6 - 0.9 cm LVPW Systolic Thickness 0.8 cm LV Ejection Fraction 2D Teich 28.9 % LV Ejection Fraction MOD 2C 16.2 % LV Ejection Fraction 2C AL 12.3 % LA Width 4.4 cm LA Height 4.8 cm RA Width 3.5 cm RA Height 5.3 cm FINDINGS Left Ventricle Right Ventricle Right Atrium Left Atrium Mitral Valve Aortic Valve Tricuspid Valve Pulmonic Valve Pericardium Aorta IVC CONCLUSIONS This is a limited echocardiogram performed to assess LV systolic function. Poor ultrasonic windows. Grossly LV systolic function is severely reduced. Accurate assessment of EF and wall motion abnormalities is not possible because of limited echo windows. Will recommend complete echo with contrast for accurate assessment of LV function and wall motion abnormalities Luciano Trevino MD (Electronically Signed) Final Date: 19 March 2022 16:34 S
[2022-03-19 16:07] LABS: Glucose Point of Care 441 mg/dL (70-110)
[2022-03-19 16:34] LABS: Adenovirus Not Detected (NOT DETECT); Chlamydia Pneumoniae Not Detected (NOT DETECT); Coronavirus 229E,HKU1,NL63,OC4 Not Detected (NOT DETECT); Human Metapneumovirus Not Detected (NOT DETECT); Human Rhinovirus/Enterovirus Not Detected (NOT DETECT); Influenza A Not Detected (NOT DETECT); Influenza A H1 Not Detected (NOT DETECT); Influenza A H1-2009 Not Detected (NOT DETECT); Influenza A H3 Not Detected (NOT DETECT); Influenza B Not Detected (NOT DETECT); Mycoplasma Pneumoniae Not Detected (NOT DETECT); Parainfluenza Virus Type 1 Not Detected (NOT DETECT); Parainfluenza Virus Type 2 Not Detected (NOT DETECT); Parainfluenza Virus Type 3 Not Detected (NOT DETECT); Parainfluenza Virus Type 4 Not Detected (NOT DETECT); Respiratory Syncytial Virus A Not Detected (NOT DETECT); Respiratory Syncytial Virus B Not Detected (NOT DETECT); SARS-COV-2 Not Detected (NOT DETECT)
[2022-03-19 17:05] LABS: ABG PCO2 40.6 mmHg (35-45); ABG PH Result 7.27 (7.35-7.45); Arterial Blood Gas Hematocrit 40.1 % (42-52); Base Excess ABG -7.9 mmol/L (-2.0-2.0); Blood Gas Allen Test Pos; Blood Gas Sample Type Arterial; Carboxyhemoglobin 1.1 %THgb (0.4-20.1); HCO3 ABG 18.6 mmol/L (22-26); HGB O2 Sat 94.9 % (95-100); Ionized Calcium Level - ABG 1.3 mmol/L (1.1-1.4); Methemoglobin 0.7 % (0.4-1.5); Oxygen Saturation ABG 96.6; PO2 ABG 84.9 mmHg (80.0-100.0); Total Hemoglobin 13.1 g/dL (14-18)
[2022-03-19 17:06] LABS: Alveolar-Arterial Oxygen Gradi 15.9 mmHg (5-10); Blood Gas Operator Identificat MONRO; Blood Gas Sample Site Radial, left; Oxygen Device NC
--- NOTE | 2022-03-19 17:08 | XRR_ITS ---
PROCEDURE INFORMATION: Exam: XR Chest Exam date and time: 03/19/2022 5:35 PM Age: 72 years old Clinical indication: Device placement; Ett placement (vent status); Patient HX: Also ng tube placement; Additional info: Post-intubation TECHNIQUE: Imaging protocol: Radiologic exam of the chest. Views: 1 view. COMPARISON: CR XR chest 1V portable [id number] 03/19/2022 1:39 PM FINDINGS: Tubes, catheters and devices: Endotracheal tube in proper position above the moses. Enteric tube seen entering and looping within the stomach and extending outside the field of view. Lungs: Ill-defined opacity again noted in the right lung base. Pleural spaces: No pleural effusion. No pneumothorax. Heart/Mediastinum: No cardiomegaly. Bones/joints: Old mid right clavicular fracture noted. Visualized osseous structures are intact. XR/XR chest 1V portable [id number] IMPRESSION: 1. Redemonstrated ill-defined opacity in the right lung base. 2. Proper positioning of support apparatus.
--- NOTE | 2022-03-19 17:19 | PC.NURSE ---
Upon arrival, pt very withdrawn and disoriented. Staff attempted several IV's that the patient continued to try to pull out. Dr Blankenship verbalized to put the patients hands in soft restraints due to his confusion and need for critical medication at the time. Pulses normal in both wrists after application.
[2022-03-19 17:21] LABS: Basophils % 0.2 %; Hematocrit 40.7 % (42.0-52.0); Hemoglobin 12.7 g/dL (11.7-16.6); Lymphocytes # 0.5 10^3/uL (0.8-4.8); Lymphocytes % 2.7 %; Mean Corpuscular HGB Conc 31.2 g/dL (30.0-36.0); Mean Corpuscular Hemoglobin 29.1 pg (28.0-34.0); Mean Corpuscular Volume 93.1 fl (80-94); Mean Platelet Volume 12.1 fL (7.4-10.4); Monocytes # 1.3 10^3/uL (0.2-0.9); Monocytes % 6.8 %; Neutrophils # 17.08 10^3/uL (1.8-7.7); Neutrophils % 89.5 %; Nucleated Red Blood Cells % 0 %; Platelet Count 296 10^3/cmm (130-400); Red Blood Count 4.37 10^6/uL (4.1-5.3); Red Cell Distribution Width 13.4 % (12.1-15.1); White Blood Count 19.1 10^3/uL (4.0-10.0)
[2022-03-19 17:44] LABS: Phosphorus 2.7 mg/dL (2.5-4.5); Potassium 3.5 mmol/L (3.5-5.1); Uric Acid 9.2 mg/dL (3.4-7.0)
[2022-03-19 17:45] LABS: Lactic Sepsis W/Reflex 3.4 mmol/L (0.5-2.2)
[2022-03-19] MEDS: ipratropium-albuterol 3 mL Neb INHALATION ×2 (17:47→20:04)
[2022-03-19 17:51] LABS: Glucose Point of Care 246 mg/dL (70-110)
--- NOTE | 2022-03-19 17:55 | PC.NURSE ---
approximately 1730 dr. Fowler gave order to intubate patient, sedation orders per AUG, intubated by Dr. Fowler, R femoral central line place per Dr. Waters, og place per v.o.
[2022-03-19] MEDS: midazolam 1 mg/mL INJ 5 ML 5 MG (18:16)
[2022-03-19] MEDS: rocuronium 10 mg/mL INJ 5mL 50 MG IVP (18:17)
[2022-03-19] MEDS: midazolam 1 mg/mL INJ 2 mL 2 MG IVP (18:17)
[2022-03-19 18:22] LABS: Anion Gap 26.5 (5-19); Blood Urea Nitrogen 25 mg/dL (8-23); Calcium 9.5 mg/dL (8.5-10.5); Carbon Dioxide 18 mmol/L (22-29); Creatinine Clr Calc Pharmacy 53.0664; Magnesium 2.2 mg/dL (1.7-2.3); Osmolality Calculated 303 mOsm/kg (285-295)
[2022-03-19 18:23] LABS: Chloride 96 mmol/L (98-107); Creatine Phosphokinase 119 U/L (39-308); Glucose 355 mg/dL (65-115); Sodium 137 mmol/L (136-145)
[2022-03-19] MEDS: dextrose 5%-ns + KCl 20 20 MEQ/1,000 ML BAG 75 MEQ IV (18:32)
[2022-03-19] MEDS: enoxaparin 40 mg/0.4 mL Syringe SUBCUT ×2 (18:33→20:11)
[2022-03-19] MEDS: propofol 1,000 MG/100 ML INJ 25.04 MG IV (18:34)
[2022-03-19] MEDS: esmolol drip 2,500 MG/250 ML PREMIX 25.04 MG IV (18:40)
[2022-03-19 18:42] LABS: ABG PCO2 52.4 mmHg (35-45); ABG PH Result 7.26 (7.35-7.45); Arterial Blood Gas Hematocrit 39.4 % (42-52); Base Excess ABG -3.8 mmol/L (-2.0-2.0); Blood Gas Allen Test Pos; Blood Gas Sample Type Arterial; Carboxyhemoglobin < 1.0 %THgb (0.4-20.1); HCO3 ABG 23.7 mmol/L (22-26); HGB O2 Sat 98.1 % (95-100); Ionized Calcium Level - ABG 1.3 mmol/L (1.1-1.4); Methemoglobin 0.5 % (0.4-1.5); Oxygen Saturation ABG 99.6; Potassium Level - ABG 2.9 mmol/L (3.5-5.0); Total Hemoglobin 12.9 g/dL (14-18)
[2022-03-19 18:44] LABS: Alveolar-Arterial Oxygen Gradi 38.9 mmHg (5-10); Blood Gas Operator Identificat MONRO; Blood Gas Sample Site Radial, left; Oxygen Device VENT
--- NOTE | 2022-03-19 18:53 | P.CONIM_ITS ---
Providers/Reason For Consult Consulting Physician/Specialty*: Luciano Trevino MD/ Cardiology Reason for Consult*: Atrial flutter/congestive heart failure Requesting Physician: Dr Fowler Attending Physician: Ml Fowler MD Primary Care Provider: Malissa Suresh DO History of Present Illness History of Present Illness Randal Banks is a 72 year old male with no significant prior cardiac history who had COVID recently and has not been feeling well for the last 1 month. He was having exertional dyspnea. Also was requiring supplemental oxygen. Was found to have atrial flutter recently as outpatient. He was sent in today because his blood glucose levels were over 800. Currently in DKA and getting treatment for that. EKG demonstrates atrial fibrillation with RVR. Limited echocardiogram was performed that shows severely reduced LV systolic function. However this is limited quality images. Baseline troponin was 68 that trended up to 112 at 6 hours. He is currently intubated and sedated Review of Systems General: Reports: ROS unobtainable due to medical condition and ROS unobtainable due to mental status Medications/Allergies Home Medications Medication Instructions Recorded Confirmed Last Taken Type diclofenac sodium 75 mg 75 mg PO BID #20 tabs 02/12/20 03/19/22 Unknown Rx tablet,delayed release albuterol sulfate 90 mcg/actuation 2 puff inhalation Q6H PRN 03/19/22 03/19/22 Unknown History aerosol inhaler Shortness Of Breath Or Wheezing amlodipine 10 mg tablet 10 mg PO DAILY 03/19/22 03/19/22 Unknown History furosemide 20 mg tablet 20 mg PO DAILY 03/19/22 03/19/22 Unknown History hydrocodone 5 mg-acetaminophen 325 1 tab PO Q4H PRN Pain 03/19/22 03/19/22 Unknown History mg tablet metoprolol tartrate 25 mg tablet 25 mg PO BID 03/19/22 03/19/22 Unknown History simvastatin 20 mg tablet 20 mg PO BEDTIME 03/19/22 03/19/22 Unknown History tamsulosin 0.4 mg capsule 0.4 mg PO BID 03/19/22 03/19/22 Unknown History Allergies Allergy/AdvReac Type Severity Reaction Status Date / Time prednisone AdvReac Severe DKA Verified 03/19/22 17:59 Current Medications Generic Name Dose Route Start Last Admin Trade Name Freq PRN Reason Stop Dose Admin Albuterol/Ipratropium 3 ml 03/19/22 17:34 03/19/22 17:47 Ipratropium-Albuterol 3 Ml Neb INHALATION 3 ml Q6H PRN Administration SHORTNESS OF BREATH Docusate Sodium 100 mg 03/19/22 18:00 03/19/22 18:33 Docusate Sodium 100 Mg Capsule PO Not Given BID PIO Enoxaparin Sodium 40 mg 03/19/22 18:00 03/19/22 18:33 Enoxaparin 40 Mg/0.4 Ml Syringe SUBCUT 40 mg Q24H PIO Administration Insulin Human Regular 250 unit 252.5 mls @ 0 mls/hr 03/19/22 13:45 03/19/22 1 6:08 / Sodium Chloride IV 10 mls/hr .Q0M PIO Titration Protocol Per Protocol Lidocaine HCl 5 ml/ Potassium 105 mls @ 25 mls/hr 03/19/22 13:45 03/19/22 18:32 Chloride IV 03/19/22 21:44 25 mls/hr Q4H PIO Administration Imipenem/Cilastatin Sodium 250 100 mls @ 200 mls/hr 03/19/22 17:02 03/19/22 18:30 mg/ Sodium Chloride IV 200 mls/hr Q6H PIO Administration Protocol Norepinephrine Bitartrate 4 mg 254 mls @ 0 mls/hr 03/19/22 17:15 03/19/22 18:35 / Dextrose IV 0 mcg/min .Q0M PIO 0 mls/hr Titration Protocol Per Protocol Fentanyl 1,000 mcg/ Sodium 100 mls @ 0 mls/hr 03/19/22 17:15 03/19/22 18:34 Chloride IV 50 mcg/hr .Q0M PIO 5 mls/hr Administration Protocol Per Protocol Propofol 1,000 mg in 100 mls @ 0 mls/hr 03/19/22 17:15 03/19/22 18:34 Diprivan IV 50 mcg/kg/min .Q0M PIO 25.04 mls/hr Administration Protocol Per Protocol Potassium Chloride/Dextrose/Sod Cl 20 meq in 1,000 mls @ 75 mls/hr 03/19/22 18:00 03/19/22 18:32 Dextrose 5%-Ns + Kcl 20 IV 75 mls/hr .[id number] PIO Administration Esmolol HCl 2,500 mg in 250 mls @ 0 mls/hr 03/19/22 18:30 03/19/22 18:40 Brevibloc Drip IV 50 mcg/kg/min .Q0M PIO 25.04 mls/hr Administration Protocol Per Protocol Rocuronium [place] 50 mg 03/19/22 17:51 03/19/22 18:17 Rocuronium 10 Mg/Ml Inj 5ml IVP 50 mg Q1H PRN Administration AIR HUNGER PFSH Acute PFSH: Medical History Atrial flutter First identified 03/06/2022 Chronic respiratory failure with hypoxia and hypercapnia COPD (chronic obstructive pulmonary disease) COVID-19 (01/2022) Gout Hyperlipidemia Hypertension Osteoarthritis Prostatic hypertrophy Surgical History History of hernia repair Family History Other CAD (coronary artery disease) Cancer Hypertension Stroke Social History Smoking and tobacco status: current every day smoker smokeless tobacco Smokeless tobacco details: former cigarette use, now uses smokeless tobacco Alcohol intake: current Alcohol type: beer Alcohol use comment: amount varies from a lot to none Substance/Drug Use: never Household members: spouse Vitals/I&O/Wt Last Vital Signs Temp 97.4 F L 03/19/22 12:20 Pulse 146 H 03/19/22 18:00 Resp 13 03/19/22 17:53 BP 112/72 03/19/22 18:00 Pulse Ox 98 03/19/22 18:00 O2 Del Method 03/19/22 18:07 O2 Flow Rate 5 03/19/22 15:30 FiO2 100 03/19/22 17:53 03/19/22 03/19/22 03/19/22 06:59 14:59 22:59 Intake Total 1188.967 / 1188.967 Balance 1188.967 / 1188.967 Weight last 48 hrs Weight 184 lb Physical Exam Narrative: GENERAL: Patient is intubated and sedated HEART: Tachycardic LUNGS: Clear to auscultate bilaterally. [] ABDOMEN: Soft CENTRAL NERVOUS SYSTEM: Grossly nonfocal. [] EXTREMITIES: 1+ pitting edema. 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 Continue DKA management per primary team. Constipation stable, we will consider ischemic work-up. For atrial flutter, as a trigger likely is dehydration and DKA. IV fluid resuscitation. Can start amiodarone drip. If becomes hemodynamically unstable, can consider cardioversion. Antibiotic therapy per primary team. Repeat complete echocardiogram once heart rate is better controlled. Thank you for involving us with care of this patient. We will continue to follow. Please call with questions. Consult Attestations Medical Necessity Statement: Care expected to cross 2 midnights. Coding Level of Care Code Acute Sr. 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
--- NOTE | 2022-03-19 18:54 | ECG_ITS ---
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 Measurements Intervals [place] Rate: 138 P: [place]: QRS: -70 QRSD: 105 T: 203 QT: 310 QTc: 471 Interpretive Statements ATRIAL FLUTTER WITH RAPID VENTRICULAR RESPONSE LEFT AXIS DEVIATION [QRS AXIS < -30] POSSIBLE ANTERIOR MYOCARDIAL INFARCTION , PROBABLY OLD [30 ms Q WAVE IN V3/V4, OR R < 0.2 mV IN V4] Compared to ECG 03/19/2022 15:10:25 Left-axis deviation now present Myocardial infarct finding now present Atrial fibrillation no longer present Left anterior fascicular block no longer present T-wave abnormality no longer present Possible ischemia no longer present Electronically Signed On 03-20-2022 14:13:13 CDT by Luciano Trevino M.D. [id number]
--- NOTE | 2022-03-19 18:55 | USCV_ITS ---
Randal Banks Age: 72 Gender: M : 1950 Exam Date: 03/19/2022 20:46 Ordering Phys: Ml Fowler MD Technologist: ELVIE [place] [facility] [place]: respiratory failure, COVID last month, BLE edema. No history of DVT per family member. HISTORY: respiratory failure, COVID last month, BLE edema. No history of DVT per family member. PROCEDURES: Venous duplex imaging was performed in bilateral lower extremities. The venous duplex Doppler examination of both lower extremities was performed in the standard fashion. The following venous structures were evaluated: common femoral vein, profunda vein, proximal portion of the greater saphenous vein, superficial femoral vein, and the popliteal vein. In addition, the posterior tibial veins were evaluated. Serial compression, augmentation maneuvers, and spectral Doppler flow evaluation were performed. FINDINGS: Normal 2-D Doppler and augmentation and compressibility throughout the lower extremity venous structures. Additional imaging through the proximal calf veins also reveals no thrombus. Limited evaluation of the greater saphenous vein is patent with no thrombus. CONCLUSIONS No DVT bilateral lower extremities. Dr. Maru Valdez DO (Electronically Signed) Final Date: 20 March 2022 07:34 S
[2022-03-19 19:03] LABS: Reflex Lactate Order REFLEX LACTIC ORDERD
[2022-03-19 19:22] LABS: Procalcitonin 0.41 ng/mL (0-0.5)
[2022-03-19 19:24] LABS: D Dimer 2.99 ug/mIFEU (0-0.59)
[2022-03-19] MEDS: vancomycin 1,250 MG/250 ML PIGGYBACK 250 MG IV (19:27)
[2022-03-19 19:44] LABS: Troponin 5 6HR Delta 44.1 ng/L (0-12)
[2022-03-19 19:45] LABS: Lactic Acid level (Lactate) 2.6 mmol/L (0.5-2.2); Troponin 5 6HR 112.1 ng/L (0-15)
[2022-03-19] MEDS: sodium chloride 0.9% 500 ML IV (19:54)
[2022-03-19] MEDS: budesonide 0.5 mg/2 mL Neb INHALATION (20:04)
[2022-03-19] MEDS: levofloxacin-dextrose 5 % 750 MG/150 ML PREMIX 100 MG IV (20:05)
[2022-03-19] MEDS: atorvastatin 40 mg Tablet 20 MG PO (20:11)
[2022-03-19 20:12] LABS: Glucose Point of Care 216 mg/dL (70-110)
[2022-03-19 20:12] LABS: Glucose Point of Care 198 mg/dL (70-110)
[2022-03-19 20:47] LABS: Influenza A by IFA Negative (Negative); Influenza B by IFA Negative (Negative)
[2022-03-19 21:17] LABS: INR 0.93 (0.8-1.2)
[2022-03-19 21:18] LABS: Partial Thromboplastin Time 29.8 SECONDS (23.9-36.7)
[2022-03-19 21:26] LABS: Glucose Point of Care 254 mg/dL (70-110)
[2022-03-19] MEDS: sodium chloride 0.9% 1,000 ML 999 ML IV (21:37)
[2022-03-19 22:10] LABS: Estmated Average Glucose 349; Hemoglobin A1C 13.8 % (4.0-6.0)
[2022-03-19 22:11] LABS: Glucose Point of Care 239 mg/dL (70-110)
[2022-03-19 23:11] LABS: Glucose Point of Care 240 mg/dL (70-110)
[2022-03-19 23:29] LABS: Blood Urea Nitrogen 23 mg/dL (8-23); Calcium 8.7 mg/dL (8.5-10.5); Carbon Dioxide 23 mmol/L (22-29); Chloride 100 mmol/L (98-107); Glucose 227 mg/dL (65-115); Osmolality Calculated 297 mOsm/kg (285-295); Phosphorus 2.9 mg/dL (2.5-4.5); Sodium 138 mmol/L (136-145)
[2022-03-19 23:31] LABS: Anion Gap 18.8 (5-19); Potassium 3.8 mmol/L (3.5-5.1)
[2022-03-20] VITALS (82 sets, daily range): BP systolic 71–112; BP diastolic 51–77; PULSE 110–143; RESP 13–29; TEMP 37.1–38.4; O2SAT 90–98
[2022-03-20 00:19] LABS: Glucose Point of Care 264 mg/dL (70-110)
[2022-03-20] MEDS: ipratropium-albuterol 3 mL Neb INHALATION ×2 (00:28→04:16)
[2022-03-20] MEDS: propofol 1,000 MG/100 ML INJ 10.02 MG IV (01:03)
[2022-03-20 01:11] LABS: Glucose Point of Care 277 mg/dL (70-110)
[2022-03-20 02:18] LABS: Glucose Point of Care 232 mg/dL (70-110)
[2022-03-20] MEDS: chlorhexidine gluconate 4% Btl 118 mL 1 APPLIC TOPICAL (02:26)
[2022-03-20 03:08] LABS: Glucose Point of Care 284 mg/dL (70-110)
[2022-03-20 04:01] LABS: Glucose Point of Care 206 mg/dL (70-110)
[2022-03-20 05:16] LABS: Glucose Point of Care 179 mg/dL (70-110)
[2022-03-20 05:46] LABS: Basophils % 0.1 %; Hematocrit 38.9 % (42.0-52.0); Lymphocytes # 0.8 10^3/uL (0.8-4.8); Lymphocytes % 5.2 %; Mean Corpuscular HGB Conc 30.8 g/dL (30.0-36.0); Mean Corpuscular Hemoglobin 28.9 pg (28.0-34.0); Mean Corpuscular Volume 93.7 fl (80-94); Mean Platelet Volume 11.7 fL (7.4-10.4); Monocytes % 6.9 %; Neutrophils # 12.58 10^3/uL (1.8-7.7); Neutrophils % 86.9 %; Nucleated Red Blood Cells % 0 %; Platelet Count 270 10^3/cmm (130-400); Red Blood Count 4.15 10^6/uL (4.1-5.3); Red Cell Distribution Width 13.7 % (12.1-15.1); White Blood Count 14.5 10^3/uL (4.0-10.0)
[2022-03-20 06:07] LABS: Chloride 104 mmol/L (98-107); Sodium 139 mmol/L (136-145)
[2022-03-20 06:07] LABS: Glucose Point of Care 175 mg/dL (70-110)
[2022-03-20 06:15] LABS: ABG PCO2 39.3 mmHg (35-45); ABG PH Result 7.32 (7.35-7.45); Alveolar-Arterial Oxygen Gradi 24.5 mmHg (5-10); Arterial Blood Gas Hematocrit 47.4 % (42-52); Base Excess ABG -5.6 mmol/L (-2.0-2.0); Blood Gas Allen Test Pos; Blood Gas Operator Identificat JB; Blood Gas Sample Site Radial, right; Blood Gas Sample Type Arterial; Carboxyhemoglobin < 1.0 %THgb (0.4-20.1); HCO3 ABG 20.1 mmol/L (22-26); Ionized Calcium Level - ABG 1.2 mmol/L (1.1-1.4); Methemoglobin 0.1 % (0.4-1.5); Oxygen Device VENT; Oxygen Saturation ABG 99.4; Potassium Level - ABG 3.6 mmol/L (3.5-5.0); Total Hemoglobin 15.5 g/dL (14-18)
[2022-03-20] MEDS: FUROsemide 10 mg/mL SDV 4mL 40 MG IVP (06:26)
[2022-03-20 06:33] LABS: Alanine Aminotransferase 9 U/L (0-41); Albumin Level 2.6 g/dL (3.5-5.2); Alkaline Phosphatase 57 U/L (40-130); Aspartate Amino Transferase 6 U/L (0-40); Blood Urea Nitrogen 25 mg/dL (8-23); Calcium 8.5 mg/dL (8.5-10.5); Carbon Dioxide 22 mmol/L (22-29); Chol HDL Ratio 2.39 mg/dL (1.0-5.00); Cholesterol 105 mg/dL (0-200); Globulin 3.1 g/dL (1.3-4.6); Glucose 176 mg/dL (65-115); HDL Cholesterol 44 mg/dL (60-100); LDL Cholesterol Calculated 32 mg/dL (50-129); LDL HDL Ratio 0.73 RATIO (0.00-3.22); Osmolality Calculated 297 mOsm/kg (285-295); Total Bilirubin 0.3 mg/dL (0.15-1.2); Total Protein 5.7 g/dL (6.6-8.7); Triglycerides 143 mg/dL (0-150); Uric Acid 8.1 mg/dL (3.4-7.0)
[2022-03-20 07:13] LABS: Glucose Point of Care 158 mg/dL (70-110)
--- NOTE | 2022-03-20 07:28 | PC.NURSE ---
0300 MD notified from midnight to 0300 patient only made 50ml of urine. His legs also seem to have more edema than start of shift. 0612 MD notified from 0300 to 0600 patient only made 25ml of urine. Lasix ordered (see MAR)
[2022-03-20] MEDS: budesonide 0.5 mg/2 mL Neb INHALATION ×2 (07:56→20:44)
[2022-03-20] MEDS: propofol 1,000 MG/100 ML INJ 15.02 MG IV ×2 (08:00→20:45)
--- NOTE | 2022-03-20 08:36 | PC.NURSE ---
Dr. Smith at bedside, gave V.O. for EKG, reviewed results gave order for 1x dose of digoxin notify hcp if rhythm does not convert may consider cardioversion, turn off insulin drip due to gap being closed, at bedside expressed wishes to remain full code
[2022-03-20] MEDS: pantoprazole DR 40 mg Tablet PO (09:08)
[2022-03-20] MEDS: aspirin 81 mg Chew Tablet PO (09:08)
[2022-03-20] MEDS: digoxin 250 mcg/ml INJ 2 mL 125 MCG IVP ×2 (09:08→15:01)
[2022-03-20] MEDS: docusate sodium 100 mg Capsule PO (09:08)
[2022-03-20] MEDS: lactobacillus 1 Tablet 1 TAB PO (09:08)
--- NOTE | 2022-03-20 09:30 | ECG_ITS ---
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 Measurements Intervals [place] Rate: 139 P: [place]: QRS: -56 QRSD: 108 T: 213 QT: 342 QTc: 520 Interpretive Statements ATRIAL FLUTTER WITH RAPID VENTRICULAR RESPONSE LOW QRS VOLTAGE IN EXTREMITY LEADS [QRS DEFLECTION < 0.5 mV IN LIMB LEADS] INFERIOR MYOCARDIAL INFARCTION , OF INDETERMINATE AGE [40+ ms Q WAVE AND/OR ST/T ABNORMALITY IN II/aVF] ST DEVIATION AND MODERATE T-WAVE ABNORMALITY, CONSIDER LATERAL ISCHEMIA [-0.1+ mV T-WAVE IN I/aVL/V5/V6] Compared to ECG 03/19/2022 21:16:07 Low QRS voltage now present T-wave abnormality now present Possible ischemia now present Left-axis deviation no longer present Myocardial infarct finding still present Electronically Signed On 03-20-2022 14:12:36 CDT by Luciano Trevino M.D. [id number]
--- NOTE | 2022-03-20 09:31 | PC.NURSE ---
Dr. wharton gave v.o. not to administer long acting insulin after turnig off insulin drip, hcp to adjust orders
[2022-03-20] MEDS: heparin drip 25,000 UNIT/500 ML PREMIX 24 UNIT IV (09:50)
--- NOTE | 2022-03-20 10:56 | PC.NURSE ---
This nurse notified Dr. Smith HR still 130s after digoxin push, HCP to consult cardiology
[2022-03-20] MEDS: levalbuterol 1.25 mg/3 mL Neb INHALATION ×4 (11:31→23:52)
[2022-03-20] MEDS: ipratropium 0.5 mg/2.5 mL Neb INHALATION ×4 (11:33→23:51)
--- NOTE | 2022-03-20 11:35 | P.PN_ITS ---
Subjective Subjective: Patient is intubated and sedated Atrial flutter Persistently heart rate is in 140s Gave 125 mics of digoxin without any significant help Requiring vasopressors currently on propofol 20 and fentanyl 5 FiO2 50% PEEP 8 Vitals/I&O/Wt Last Vital Signs Temp 98.8 F 03/20/22 02:00 Pulse 133 H 03/20/22 10:30 Resp 27 H 03/20/22 09:57 BP 95/67 03/20/22 10:30 Pulse Ox 98 03/20/22 10:00 O2 Del Method 03/20/22 07:50 O2 Flow Rate 5 03/19/22 15:30 FiO2 50 03/20/22 09:57 03/19/22 03/20/22 03/20/22 22:59 06:59 14:59 Intake Total 4580.043 / 4580.043 1371.112 / 5951.155 285.828 / 285.828 Output Total 70 / 70 375 / 445 Balance 4510.043 / 4510.043 996.112 / 5506.155 285.828 / 285.828 Weight last 48 hrs Weight 84.459 kg Weight 83.461 kg Physical Exam Narrative: Intubated and sedated Clinically looks fluid overloaded Atrial flutter with RVR Abdomen soft bowel sounds absent to sluggish Edema of legs noted Marrufo catheter with clear dilute urine Variable S1-S2 Hypotensive No petechiae or mottling of skin noted Urinary Catheter Management: Marrufo: Cath Placed During This Visit: yes Reason for Continuing Indwelling Catheter: Accurate Measurement of Urinary Output in Critically Ill Patients Urinary Catheter Date of Insertion: 03/19/22 Data : 03/20/22 05:32 03/20/22 05:32 Micro: Microbiology 03/19/22 13:56 Blood Culture - Preliminary Blood SPECIMEN COLLECTED 03/19/22 19:47 Bacterial Antigens - Final Urine,Voided 03/19/22 14:45 Urine Culture - Preliminary Urine,Clean Catch 03/19/22 19:47 Legionella Urinary Antigen - Final Urine Catheterized 03/19/22 13:56 Blood Culture - Preliminary Blood SPECIMEN COLLECTED A&P Assessment and plan (1) DKA (diabetic ketoacidosis): Qualifiers: Diabetes mellitus complication detail: with coma 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 Insulin drip stopped Accu-Cheks every 6 hours We are able to wean him off vasopressors can start tube feeds for now hold off for at least next 24 hours to avoid gut ischemia Mixed presentation of cardiogenic and septic shock Sepsis likely related to pneumonia Currently on vasopressors Lactic acid improved Sepsis could have contributed to severe cardiomyopathy New onset atrial flutter Concern for new onset PE Currently patient is adequately anticoagulated On amio gtt Digoxin 125 mics did not include his heart rate He might need cardioversion Systolic congestive heart failure Septic cardiomyopathy? NSTEMI Currently therapeutically anticoagulated No previous history of CHF as per the Cardio is consulted Metabolic encephalopathy related DKA and sepsis Acute on chronic hypoxia, respiratory failure, requiring mechanical ventilation Intubated and sedated Propofol 20, fentanyl 5, titrate off propofol and use fentanyl for now Levo is at 6 Significant hematuria on UA no active bleeding Could be related to Marrufo placement Repeat UA to see improvement of hematuria Acute on chronic kidney disease related to sepsis and CHF Guarded prognosis Full code Attestations Medical Necessity Statement*: Continue ICU management Time Spent in Patient Care: 40 Coding Level of Care Code Acute Automatic Pinsetter Adjuster for [facility] Diagnoses DKA (diabetic ketoacidosis) E09.11 Diabetes mellitus complication detail: with coma 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
[2022-03-20 12:00] LABS: Bacillus cereus group Not Detected (NOT DETECT); Bacillus subtillis group Not Detected (NOT DETECT); Corynebacterium Not Detected (NOT DETECT); Cutibacterium acnes (P.acnes) Not Detected (NOT DETECT); Enterococcus Not Detected (NOT DETECT); Enterococcus faecalis Not Detected (NOT DETECT); Enterococcus faecium Not Detected (NOT DETECT); Lactobacillus species Not Detected (NOT DETECT); Listeria Not Detected (NOT DETECT); Listeria monocytogenes Not Detected (NOT DETECT); Micrococcus Not Detected (NOT DETECT); Pan Candida Not Detected (NOT DETECT); Pan Gram-Negative Not Detected (NOT DETECT); Staphylococcus epidermidis Not Detected (NOT DETECT); Staphylococcus lugdunensis Not Detected (NOT DETECT); Staphylococcus species Not Detected (NOT DETECT); Streptococcus agalactiae Not Detected (NOT DETECT); Streptococcus anginosus group Not Detected (NOT DETECT); Streptococcus pneumoniae Not Detected (NOT DETECT); Streptococcus pyogenes Not Detected (NOT DETECT); Streptococcus species Not Detected (NOT DETECT)
[2022-03-20 12:23] LABS: Glucose Point of Care 136 mg/dL (70-110)
--- NOTE | 2022-03-20 12:31 | ECG_ITS ---
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 Measurements Intervals [place] Rate: 129 P: [place]: QRS: -73 QRSD: 114 T: 158 QT: 309 QTc: 453 Interpretive Statements ATRIAL FLUTTER WITH RAPID VENTRICULAR RESPONSE LEFT AXIS DEVIATION [QRS AXIS < -30] MODERATE INTRAVENTRICULAR CONDUCTION DELAY [110+ ms QRS DURATION] ST DEVIATION AND MODERATE T-WAVE ABNORMALITY, CONSIDER LATERAL ISCHEMIA [-0.1+ mV T-WAVE IN I/aVL/V5/V6] Compared to ECG 03/20/2022 08:25:41 Left-axis deviation now present Intraventricular conduction delay now present Myocardial infarct finding no longer present T-wave abnormality still present Possible ischemia still present Electronically Signed On 03-20-2022 14:11:47 CDT by Luciano Trevino M.D. [id number]
--- NOTE | 2022-03-20 12:32 | PM.PN ---
Subjective Subjective: Patient is still tachycardic with atrial flutter and heart rates over 140 bpm. Renal function has been worsening. Vitals/I&O/Wt Last Vital Signs Temp 98.8 F 03/20/22 02:00 Pulse 130 H 03/20/22 11:35 Resp 26 H 03/20/22 11:37 BP 95/67 03/20/22 10:30 Pulse Ox 95 03/20/22 11:37 O2 Del Method 03/20/22 11:25 O2 Flow Rate 5 03/19/22 15:30 FiO2 50 03/20/22 11:37 03/19/22 03/20/22 03/20/22 22:59 06:59 14:59 Intake Total 4580.043 / 4580.043 1371.112 / 5951.155 856.745 / 856.745 Output Total 70 / 70 375 / 445 Balance 4510.043 / 4510.043 996.112 / 5506.155 856.745 / 856.745 Weight last 48 hrs Weight 186 lb 3.2 oz Weight 184 lb Physical Exam Narrative: GENERAL: Patient is intubated and sedated HEART: Tachycardic LUNGS: Clear to auscultate bilaterally. [] ABDOMEN: Soft CENTRAL NERVOUS SYSTEM: Grossly nonfocal. [] EXTREMITIES: 1+ pitting edema. Cold lower extremities Urinary Catheter Management: Marrufo: Cath Placed During This Visit: yes Reason for Continuing Indwelling Catheter: Accurate Measurement of Urinary Output in Critically Ill Patients Urinary Catheter Date of Insertion: 03/19/22 Data : 03/21/22 03:56 03/21/22 07:34 Micro: Microbiology 03/19/22 17:40 Gram Stain - Final Sputum - Endotracheal Tube Aspirate Sputum Culture - Preliminary 03/19/22 13:56 Blood Culture - Preliminary Blood SPECIMEN COLLECTED 03/19/22 19:47 Bacterial Antigens - Final Urine,Voided 03/19/22 14:45 Urine Culture - Preliminary Urine,Clean Catch 03/19/22 19:47 Legionella Urinary Antigen - Final Urine Catheterized 03/19/22 13:56 Blood Culture - Preliminary Blood SPECIMEN COLLECTED A&P Assessment and plan (1) DKA (diabetic ketoacidosis): Qualifiers: Diabetes mellitus complication detail: with coma 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 Continue DKA management per primary team. Patient has worsening septic shock, Management per primary team Once stable, will consider ischemic work-up For atrial flutter, as a trigger likely is dehydration, septic shock and DKA. IV fluid resuscitation. Can continue amiodarone drip. If becomes hemodynamically unstable, can consider cardioversion. Antibiotic therapy per primary team. Repeat complete echocardiogram once heart rate is better controlled. Thank you for involving us with care of this patient. We will continue to follow. Please call with questions. Attestations Medical Necessity Statement*: Care expected to cross 2 midnights. 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
[2022-03-20] MEDS: vancomycin 1,250 MG/250 ML PIGGYBACK 250 MG IV (13:26)
[2022-03-20] MEDS: FUROsemide 10 mg/mL SDV 2mL 20 MG IVP (13:26)
[2022-03-20] MEDS: propofol 1,000 MG/100 ML INJ 30.05 MG IV ×2 (13:56→16:57)
--- NOTE | 2022-03-20 14:29 | PC.CHAP ---
Pastoral Care Encounter/Spiritual Assessment Type of Contact [] Declined metal sorter visit [] Patient/Family/Request visit [] Outpatient visit [] Follow-up visit [] Physician referral [] Code/Alert [] Routine visit [] Staff referral [] Actively dying [] Patient sleeping [] Family support [] [] Out of room [] Palliative care [] [] Receiving care in room [] Pre-surgical visit [] Trauma [] Long length of stay [x] ICU visit [] Other: Relational/Emotional Strength [] Patient feels connected with others/family/visitors/staff [] Distress [] Loneliness/isolation [] Abandonment Spirituality of Patient [] Person of Sharyn [] Attends Yazidi of their Sharyn [] Believes in Prayer [] Reads Bible or Rastafarian materials [] There are Spiritual issues to be addressed Line Installer Repairer Interventions [x] Prayer [] Active listening [] Non-anxious presence [] Spiritual/emotional support [] Crisis/trauma care [] Spiritual counseling [] Bereavement support [] Provided bereavement packet [] Provided Bible/devotional materials [] Provided toy/stuffed animal, coloring book to patient or family member [] Provided Communion [] Anointing/[place] [] Salvation [x] Completed spiritual assessment [] Other: Impact on Illness or Injury [] Angry [] Fearful [] Anxious [] Often cries [] Exhaustion [] Unable to work [] Unable to attend buddhism [] Unable to walk/stand [] Unable to read [] Unable to drive [] Unable to eat/drink [] Unable to sleep [] Unable to be with family [] Patient intubated [] Other: Summary Time spent with patient
--- NOTE | 2022-03-20 16:24 | PM.ACPR ---
Procedure/Consent Time out: Time Out Performed: Yes Consent: Consent for Procedure: Emergency procedure Procedure Narrative: Name of the Procedure: Right femoral vein Central venous catheter placement . Indication: Emergent IV access prior to intubation Anesthesiia: Lidocaine 1%, 5 ml Description of the procedure: The right femoral artery was identified by palpation. The site was prepared using sterile technique. The skin and subcuteneous tissue was anesthetized using lidocaine. The introducer needle was advanced 1.5 cm medial to the right femoral artery pulsation immediately below the inguinal ligament. Dark, non pulsatile blood noted. Using seldinger technique the CVC was put in. Blood return was noted in all ports. Catheter was secured with suture and covered with transparent dressing. Complications: None The procedure was performed at 5:15 PM on 03-19-2022. Acute Procedures Epistaxis Control: Time out performed: Yes
--- NOTE | 2022-03-20 18:35 | PC.NURSE ---
Shift summary: attempted weaning sedation this am, patient RR in the 30s, not following commands, sedation had to be increased. digoxin administered per MAR for HR. remains at bedside
[2022-03-20] MEDS: dextrose 5%-ns + KCl 20 20 MEQ/1,000 ML BAG 30 MEQ IV (20:13)
[2022-03-20] MEDS: atorvastatin 40 mg Tablet 20 MG PO (20:20)
[2022-03-20] MEDS: acetaminophen 325 mg Tablet 650 MG PO (20:21)
[2022-03-20 21:30] LABS: Glucose Point of Care 462 mg/dL (70-110)
[2022-03-20] MEDS: insulin glargine 100 units/1 mL 20 UNIT SUBCUT (21:50)
[2022-03-20] MEDS: insulin lispro 100 unit/1 mL SUBCUT (21:50)
[2022-03-20 22:14] LABS: Partial Thromboplastin Time 94.8 SECONDS (23.9-36.7)
[2022-03-21] VITALS (104 sets, daily range): BP systolic 75–130; BP diastolic 53–83; PULSE 111–128; RESP 14–18; TEMP 36.7–37.8; O2SAT 94–98; BMI 31.0
[2022-03-21 00:01] LABS: Glucose Point of Care 533 mg/dL (70-110)
[2022-03-21] MEDS: insulin regular-human 250 UNIT in sodium chloride 0.9% 250 ML 14.82 UNIT IV (01:01)
[2022-03-21] MEDS: norepinephrine 8 MG in dextrose 5 % 500 ML 68.58 MG IV ×4 (01:03→10:10)
[2022-03-21 01:12] LABS: Glucose Point of Care 554 mg/dL (70-110)
[2022-03-21] MEDS: FUROsemide 10 mg/mL SDV 10mL 60 MG IVP (01:35)
[2022-03-21 02:00] LABS: Glucose Point of Care 568 mg/dL (70-110)
[2022-03-21 02:49] LABS: Blood Urine Large (Negative); Glucose Urine UA 2+ (Normal); Ketones Urine 1+ (Negative); Leukocyte Esterase Urine 3+; Nitrate Urine Positive; Protein Urine 3+; Specific Gravity, Urine 1.025 (1.005-1.030); Urine Appearance Turbid (CLEAR); Urine Color Other (Yellow); pH Urine 5.5 (5-7)
[2022-03-21 03:09] LABS: Glucose Point of Care 552 mg/dL (70-110)
[2022-03-21] MEDS: levalbuterol 1.25 mg/3 mL Neb INHALATION ×5 (03:13→20:21)
[2022-03-21] MEDS: ipratropium 0.5 mg/2.5 mL Neb INHALATION ×5 (03:13→20:21)
[2022-03-21 03:47] LABS: Bilirubin Urine 3+ (Negative)
[2022-03-21 03:49] LABS: Add Urine Culture? Yes; Add Urine Microscopic? YES; Bacteria Urine 2+ /hpf; RBC Urine TOO NUMEROUS TO CNT /hpf (0-2)
[2022-03-21 04:02] LABS: Glucose Point of Care 487 mg/dL (70-110)
[2022-03-21] MEDS: propofol 1,000 MG/100 ML INJ 15.02 MG IV (04:04)
[2022-03-21 04:05] LABS: Basophils # 0.1 10^3/uL (0.0-0.1); Basophils % 0.4 %; Hemoglobin 12.4 g/dL (11.7-16.6); Lymphocytes # 0.9 10^3/uL (0.8-4.8); Lymphocytes % 3.8 %; Mean Corpuscular HGB Conc 29.5 g/dL (30.0-36.0); Mean Corpuscular Hemoglobin 29.1 pg (28.0-34.0); Mean Corpuscular Volume 98.6 fl (80-94); Mean Platelet Volume 11.7 fL (7.4-10.4); Monocytes # 0.6 10^3/uL (0.2-0.9); Monocytes % 2.7 %; Neutrophils # 20.36 10^3/uL (1.8-7.7); Neutrophils % 91.8 %; Nucleated Red Blood Cells % 0.2 %; Platelet Count 325 10^3/cmm (130-400); Red Blood Count 4.26 10^6/uL (4.1-5.3); Red Cell Distribution Width 14.3 % (12.1-15.1); White Blood Count 22.2 10^3/uL (4.0-10.0)
[2022-03-21 04:41] LABS: Partial Thromboplastin Time 91.9 SECONDS (23.9-36.7)
[2022-03-21 04:44] LABS: Anion Gap 21.8 (5-19); Blood Urea Nitrogen 37 mg/dL (8-23); Calcium 8.1 mg/dL (8.5-10.5); Carbon Dioxide 16 mmol/L (22-29); Chloride 93 mmol/L (98-107); Osmolality Calculated 294 mOsm/kg (285-295); Potassium 4.8 mmol/L (3.5-5.1); Sodium 126 mmol/L (136-145)
[2022-03-21 04:59] LABS: C Reactive Protein 695.7 mg/L (0.0-4.9); Glucose 519 mg/dL (65-115)
[2022-03-21 05:13] LABS: Glucose Point of Care 462 mg/dL (70-110)
[2022-03-21 05:32] LABS: Lactate (Lactic Acid level) 3.1 mmol/L (0.5-2.2)
[2022-03-21 06:06] LABS: Glucose Point of Care 450 mg/dL (70-110)
[2022-03-21 06:17] LABS: ABG PCO2 55.2 mmHg (35-45); Arterial Blood Gas Hematocrit 54.1 % (42-52); Base Excess ABG -15.5 mmol/L (-2.0-2.0); Blood Gas Allen Test Pos; Blood Gas Operator Identificat Anonymous; Blood Gas Sample Site Radial, right; Blood Gas Sample Type Arterial; Carboxyhemoglobin < 1.0 %THgb (0.4-20.1); HCO3 ABG 15.5 mmol/L (22-26); HGB O2 Sat 95.4 % (95-100); Ionized Calcium Level - ABG 1.1 mmol/L (1.1-1.4); Methemoglobin 0.4 % (0.4-1.5); Oxygen Saturation ABG 96.4; PO2 ABG 81.9 mmHg (80.0-100.0); Potassium Level - ABG 4.3 mmol/L (3.5-5.0); Total Hemoglobin 17.6 g/dL (14-18)
[2022-03-21 06:19] LABS: Alveolar-Arterial Oxygen Gradi 27.7 mmHg (5-10); Oxygen Device VENT
[2022-03-21 06:22] LABS: ABG PH Result 7.06 (7.35-7.45)
[2022-03-21] MEDS: FUROsemide 100 MG in sodium chloride 0.9% 40 ML IV ×2 (07:24→22:36)
[2022-03-21] MEDS: sodium bicarbonate 50 MEQ in sodium chloride 0.45% 1,000 ML IV (07:24)
--- NOTE | 2022-03-21 07:29 | P.CONIM_ITS ---
Providers/Reason For Consult Consulting Physician/Specialty*: tucker wise md / telenephrology Reason for Consult*: PATTIE, met and resp acidosis Requesting Physician: Dr Smith and Dr Cedillo Attending Physician: Brie Smith MD Primary Care Provider: Malissa Suresh DO History of Present Illness History of Present Illness Randal Banks is a 72 year old male admitted on 03/19/22 w/ DKA. Pt had COVID-19 in January 2022. he has been weak for a month- s/p steroids, molnipiravir, and levaquin. Pt presented w/ abnormal labs, confusion, and hypotension. On admission started on abx for pna and given ivf and insulin. Initial AG was 38- closed and lactate improved. hx includes copd and a fib. Portable echo on admission w/ low EF. Pt was intubated and seen by cardiology, Dr Ibrahim. He remained w/ a flutter and HR in 140's. He was hypotensive and pressor dependent. Mixed septic and cardiogenic shock. Renal called as inc AGMA, resp acidosis, inc lactate. Pt is not responsive. Review of Systems Narrative: unable to obtain due to clinical condition Medications/Allergies Home Medications Medication Instructions Recorded Confirmed Last Taken Type diclofenac sodium 75 mg 75 mg PO BID #20 tabs 02/12/20 03/19/22 Unknown Rx tablet,delayed release albuterol sulfate 90 mcg/actuation 2 puff inhalation Q6H PRN 03/19/22 03/19/22 Unknown History aerosol inhaler Shortness Of Breath Or Wheezing amlodipine 10 mg tablet 10 mg PO DAILY 03/19/22 03/19/22 Unknown History furosemide 20 mg tablet 20 mg PO DAILY 03/19/22 03/19/22 Unknown History hydrocodone 5 mg-acetaminophen 325 1 tab PO Q4H PRN Pain 03/19/22 03/19/22 Unknown History mg tablet metoprolol tartrate 25 mg tablet 25 mg PO BID 03/19/22 03/19/22 Unknown History simvastatin 20 mg tablet 20 mg PO BEDTIME 03/19/22 03/19/22 Unknown History tamsulosin 0.4 mg capsule 0.4 mg PO BID 03/19/22 03/19/22 Unknown History Allergies Allergy/AdvReac Type Severity Reaction Status Date / Time prednisone AdvReac Severe DKA Verified 03/19/22 17:59 Current Medications Generic Name Dose Route Start Last Admin Trade Name Luis Manuel PRN Reason Stop Dose Admin Acetaminophen 650 mg 03/19/22 17:02 03/20/22 20:21 Acetaminophen 325 Mg Tablet PO 650 mg Q6H PRN Administration MILD PAIN Aspirin 81 mg 03/20/22 09:00 03/20/22 09:08 Aspirin 81 Mg Chew Tablet PO 81 mg DAILY PIO Administration Atorvastatin Calcium 20 mg 03/19/22 21:00 03/20/22 20:20 Atorvastatin 40 Mg Tablet PO 20 mg BEDTIME PIO Administration Budesonide 0.5 mg 03/19/22 20:00 03/20/22 20:44 Budesonide 0.5 Mg/2 Ml Neb INHALATION 0.5 mg BID.RESPIRATORY PIO Administration Chlorhexidine Gluconate 1 applic 03/20/22 01:00 03/21/22 02:03 Chlorhexidine Gluconate 4% Btl 118 Ml TOPICAL Not Given 0100 PIO Docusate Sodium 100 mg 03/19/22 18:00 03/20/22 17:00 Docusate Sodium 100 Mg Capsule PO Not Given BID PIO Furosemide 20 mg 03/20/22 12:00 03/20/22 13:26 Furosemide 10 Mg/Ml Sdv 2ml IVP 20 mg Q24H PIO Administration Insulin Human Regular 250 unit 252.5 mls @ 0 mls/hr 03/19/22 13:45 03/21/22 06:03 / Sodium Chloride IV 31.2 ml/hr .Q0M PIO 31.2 mls/hr Titration Protocol Per Protocol Imipenem/Cilastatin Sodium 250 100 mls @ 200 mls/hr 03/19/22 17:02 03/21/22 07:22 mg/ Sodium Chloride IV Infused Q6H PIO Infusion Protocol Norepinephrine Bitartrate 4 mg 254 mls @ 0 mls/hr 03/19/22 17:15 03/21/22 02:05 / Dextrose IV Infused .Q0M PIO Titration Protocol Per Protocol Fentanyl 1,000 mcg/ Sodium 100 mls @ 0 mls/hr 03/19/22 17:15 03/21/22 02:43 Chloride IV 50 mcg/hr .Q0M PIO 5 mls/hr Administration Protocol Per Protocol Propofol 1,000 mg in 100 mls @ 0 mls/hr 03/19/22 17:15 03/21/22 04:04 Diprivan IV 30 mcg/kg/min .Q0M PIO 15.02 mls/hr Administration Protocol Per Protocol Esmolol HCl 2,500 mg in 250 mls @ 0 mls/hr 03/19/22 18:30 03/20/22 00:00 Brevibloc Drip IV 0 mcg/kg/min .Q0M PIO 0 mls/hr Titration Protocol Per Protocol Vancomycin/PEG/NADA/Lysine/Water 1,250 mg in 250 mls @ 250 mls/hr 03/19/22 19:00 03/20/22 19:21 Vancocin IV Infused Q18H PIO Infusion Amiodarone HCl 900 mg/ 518 mls @ 0 mls/hr 03/19/22 19:00 03/21/22 05:03 Dextrose/ IV Miscellaneous IV 1 mg/min Supplies .Q0M PIO 34.53 mls/hr Administration Protocol Per Protocol Heparin Sodium/Sodium Chloride 25,000 unit in 500 mls @ 0 mls/hr 03/20/22 08:3 0 03/21/22 04:43 Heparin Drip IV 11.84 unit/kg/hr .Q0M PIO 20 mls/hr Titration Protocol Per Protocol Norepinephrine Bitartrate 8 mg 508 mls @ 0 mls/hr 03/20/22 22:45 03/21/22 02:04 / Dextrose IV 18 mcg/min .Q0M PIO 68.58 mls/hr Administration Protocol Per Protocol Ipratropium Gail 0.5 mg 03/20/22 12:00 03/21/22 03:13 Ipratropium 0.5 Mg/2.5 Ml Neb INHALATION 0.5 mg Q4H.RESPIRATORY PIO Administration Lactobacillus Acidophilus 1 tab 03/20/22 09:00 03/20/22 17:00 Lactobacillus 1 Tablet PO Not Given BID PIO Levalbuterol HCl 1.25 mg 03/20/22 12:00 03/21/22 03:13 Levalbuterol 1.25 Mg/3 Ml Neb INHALATION 1.25 mg Q4H.RESPIRATORY PIO Administration Pantoprazole Sodium 40 mg 03/20/22 09:00 03/20/22 09:[address] 40 Mg Tablet PO 40 mg DAILY PIO Administration Rocuronium Gail 50 mg 03/19/22 17:51 03/19/22 18:17 Rocuronium 10 Mg/Ml Inj 5ml IVP 50 mg Q1H PRN Administration 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 PFSH Acute PFSH: Medical History Atrial flutter First identified 03/06/2022 Chronic respiratory failure with hypoxia and hypercapnia COPD (chronic obstructive pulmonary disease) COVID-19 (01/2022) Gout Hyperlipidemia Hypertension Osteoarthritis Prostatic hypertrophy Surgical History History of hernia repair Family History Other CAD (coronary artery disease) Cancer Hypertension Stroke Social History Smoking and tobacco status: current every day smoker smokeless tobacco Smokeless tobacco details: former cigarette use, now uses smokeless tobacco Alcohol intake: current Alcohol type: beer Alcohol use comment: amount varies from a lot to none Substance/Drug Use: never Household members: spouse Vitals/I&O/Wt Last Vital Signs Temp 98.5 F 03/21/22 04:00 Pulse 113 H 03/21/22 06:30 Resp 15 03/21/22 06:00 BP 103/64 03/21/22 06:30 Pulse Ox 96 03/21/22 06:00 O2 Del Method 03/21/22 03:14 O2 Flow Rate 5 03/19/22 15:30 FiO2 50 03/21/22 06:00 03/20/22 03/21/22 03/21/22 22:59 06:59 14:59 Intake Total 1284.147 / 2428.761 1492.545 / 3921.306 100 / 100 Output Total 125 / 125 4 / 129 Balance 1159.147 / 2303.761 1488.545 / 3792.306 100 / 100 Weight last 48 hrs Weight 84.459 kg Weight 83.461 kg Physical Exam Narrative: not responsive, Levo @18, vent TV 500, fio2=50%, RR 14, PEEP 8 heent- nc/at, lungd crackles at bases heart irreg irreg abd soft, nt, + bs ext no edema neuro- not responsive Urinary Catheter Management: Marrufo: Cath Placed During This Visit: yes Reason for Continuing Indwelling Catheter: Accurate Measurement of Urinary Output in Critically Ill Patients Urinary Catheter Date of Insertion: 03/19/22 Data : 03/21/22 03:56 03/21/22 03:56 Micro: Microbiology 03/19/22 19:47 MRSA Culture - Final Nose 03/19/22 13:56 Blood Culture - Preliminary Blood 03/19/22 13:56 Blood Culture - Preliminary Blood NEGATIVE TO DATE 03/19/22 17:40 Gram Stain - Final Sputum - Endotracheal Tube Aspirate Sputum Culture - Preliminary 03/19/22 19:47 Bacterial Antigens - Final Urine,Voided 03/19/22 14:45 Urine Culture - Preliminary Urine,Clean Catch A&P Assessment and plan (1) PATTIE (acute kidney injury): 72 yr old man 1. PATTIE- normal cr 0.9 in 2019. cr 1.2 on admission. now cr 3.8 w/ PATTIE stage 3- anuric -check urine studies -ua this am turbid- 2+ gluc, 1+ ketones, large blood, 2+ bact- check serologies, ck -most likely ATN -renal us 2. inc AGMA from DKA, lactic acidosis, and PATTIE- would restart insulin drip -will give bicarb ivf w/o glucose 3. Resp acidosis- pH 7.06/ 55- adjust vent- both resp and met acidosis worsened overnight 4. Septic shock- renal dose abx - CRP 695 -lower vanco dose w/ level of 25 5. cardiogenic shock- repeat trops 6. hyponatremia- normal tsh. check ur lytes given above, prognosis is guarded- given coma, resp and met acidosis, VDRF, Low EF, shock, and PATTIE- if family wants aggressive care- would atempt HD, if fails, consider CRRT. Please have Cardiology see pt to maiximize CO and pulmonary to adjust the vent seen and examined w/ rN discussed w/ Abhi Smith and Mamadou. time spent > 1 hr Plan see above Consult Attestations Medical Necessity Statement: multi-organ failure Time Spent in Patient Care: Greater than 35 minutes (>than 50% of time spent in counselling and/or direct pt care on unit) . Coding Level of Care Code Acute Supervisor [employer] for [facility]al[facility] Sandoval Diagnoses PATTIE (acute kidney injury) N17.9
--- NOTE | 2022-03-21 07:34 | PC.NURSE ---
2125 md jean claude notified about increase levophed requirements as well as temp of 101.2 and UO of 25ml for dayshift as well as the first 2.5 hr of this RN's shift. 2130 POC BG was 462. notified and humalog and lantus was ordered and given (see AUG) 2349 POC BG 533. notified insulin gtt started. 99 md jean claude arrived @ bedside and spoke with . lasix IV 1x ordered. 0501 Critical labs called to . no new orders 0604 called and gave orders to stop d5ns with 20kcl, cont insulin ggt, start lasix gtt, and BMP Q4. 0626 called wit critical ABG results. bicarb gtts ordered. 0650 report given to ILEANA Mcguire. pt at bedside all questions answered
[2022-03-21 07:40] LABS: Vancomycin Trough 25.2 ug/mL (10-15)
[2022-03-21 07:41] LABS: Glucose Point of Care 412 mg/dL (70-110)
[2022-03-21] MEDS: budesonide 0.5 mg/2 mL Neb INHALATION ×2 (07:59→20:21)
[2022-03-21 08:05] LABS: Ketone (Acetest) Serum Negative (Negative)
--- NOTE | 2022-03-21 08:06 | US_ITS ---
WS: [id number] RENAL ULTRASOUND HISTORY: raul COMPARISON: None available. TECHNIQUE: 2-D and color Doppler imaging of the kidney submitted. Right kidney: 11.8 cm x 5.2 cm x 5.9 cm. Normal echogenicity with no hydronephrosis or mass. Left kidney: 12.4 cm x 5.0 cm x 6.7 cm. Normal echogenicity with no hydronephrosis or mass. Aorta: Normal. Urinary Bladder: Nondistended. Marrufo catheter present in the urinary bladder. US/US renal BI* [id number] IMPRESSION: Normal renal ultrasound.
[2022-03-21 08:07] LABS: Chloride 94 mmol/L (98-107); Potassium 4.6 mmol/L (3.5-5.1); Sodium 128 mmol/L (136-145)
[2022-03-21 08:21] LABS: Anion Gap 21.6 (5-19); Blood Urea Nitrogen 40 mg/dL (8-23); Carbon Dioxide 17 mmol/L (22-29); Glucose 408 mg/dL (65-115); Osmolality Calculated 293 mOsm/kg (285-295)
[2022-03-21 08:32] LABS: Hepatitis B Surface AB 3.5 (11.5-1000); Hepatitis B Surface Antigen Non-Reactive (Nonreactive); Hepatitis C Virus Antibody Non-Reactive (Nonreactive)
[2022-03-21 08:45] LABS: HIV 1 & 2 Antibody Non-Reactive (Non-Reactiv); HIV 1 & 2 Antigen Non-Reactive (Non-Reactiv)
[2022-03-21 08:47] LABS: Complement C3 133 mg/dL (90-180); Creatine Phosphokinase 253 U/L (39-308); Uric Acid 8.2 mg/dL (3.4-7.0)
[2022-03-21 08:50] LABS: Troponin T (5th) Once 238 ng/L (0-15)
[2022-03-21] MEDS: EPINEPHrine 2.5 MG in sodium chloride 0.9% 250 ML 51.18 MG IV (08:58)
[2022-03-21 09:19] LABS: Osmolality Serum 327 mOsm/kg (278-305)
[2022-03-21 09:20] LABS: Glucose Point of Care 360 mg/dL (70-110)
[2022-03-21] MEDS: protamine 10 mg/mL SDV 5 mL 20 MG IV (09:20)
[2022-03-21] MEDS: sodium chloride 0.9% 50 mL Bag IV (09:21)
[2022-03-21 09:24] LABS: CKMB 2.8 ng/mL (0-10.4)
[2022-03-21] MEDS: calcium gluconate 0.9% NaCL 1 GM/50 ML PREMIX IV (10:00)
[2022-03-21 10:22] LABS: Glucose Point of Care 319 mg/dL (70-110)
[2022-03-21] MEDS: insulin regular-human 250 UNIT in sodium chloride 0.9% 250 ML 25.9 UNIT IV (10:29)
[2022-03-21] MEDS: propofol 1,000 MG/100 ML INJ 10.02 MG IV ×2 (10:38→21:04)
[2022-03-21 10:45] LABS: Partial Thromboplastin Time 37.4 SECONDS (23.9-36.7)
--- NOTE | 2022-03-21 11:08 | P.PN_ITS ---
Subjective Subjective: This morning patient has received hemodialysis catheter after he got 20 mg of protamine to reverse heparin effect in order to get temporary hemodialysis catheter Dr. Mcmanus has placed it this morning Plan is to start dialyzing him today He is currently on bicarb drip I have added 2 more vasopressors to bring Levophed down Added vasopressin and epinephrine I have asked nurse to decrease the dose on propofol and go up on fentanyl FiO2 50% PEEP8 concern for auto PEEP pressure rate has been increased to 14- minute ventilation is 8.2-9 Mixed respiratory and metabolic acidosis Septic cardiomyopathy Sepsis septic shock ATN Guarded prognosis Atrial flutter heart rate in 119 range -[place] acidosis, DKA gap opened again currently on insulin drip BMP every 4 hours Vitals/I&O/Wt Last Vital Signs Temp 98.5 F 03/21/22 04:00 Pulse 113 H 03/21/22 08:00 Resp 16 03/21/22 08:01 BP 103/64 03/21/22 06:30 Pulse Ox 95 03/21/22 08:01 O2 Del Method 03/21/22 08:00 O2 Flow Rate 5 03/19/22 15:30 FiO2 50 03/21/22 08:01 03/20/22 03/21/22 03/21/22 22:59 06:59 14:59 Intake Total 1284.147 / 2428.761 1492.545 / 3921.306 961.859 / 961.859 Output Total 125 / 125 4 / 129 Balance 1159.147 / 2303.761 1488.545 / 3792.306 961.859 / 961.859 Weight last 48 hrs Weight 84.459 kg Weight 83.461 kg Physical Exam Narrative: Patient is intubated and sedated Clinically very congestion and fluid overloaded Currently on 3 vasopressors Insulin Abdomen with sluggish bowel sounds to absent No extremity 3+ pitting edema Neuro exam is limited FiO2 50% PEEP 8 Pressure rate 14-minute ventilation 8 [place] urine Urinary Catheter Management: Marrufo: Cath Placed During This Visit: yes Reason for Continuing Indwelling Catheter: Accurate Measurement of Urinary Output in Critically Ill Patients Urinary Catheter Date of Insertion: 03/19/22 Data : 03/21/22 03:56 03/21/22 07:34 Micro: Microbiology 03/19/22 17:40 Gram Stain - Final Sputum - Endotracheal Tube Aspirate Sputum Culture - Preliminary Staphylococcus sp coag neg 03/19/22 14:45 Urine Culture - Final Urine,Clean Catch 03/19/22 19:47 MRSA Culture - Final Nose 03/19/22 13:56 Blood Culture - Preliminary Blood 03/19/22 13:56 Blood Culture - Preliminary Blood NEGATIVE TO DATE 03/19/22 19:47 Bacterial Antigens - Final Urine,Voided A&P Assessment and plan (1) PATTIE (acute kidney injury): (2) ATN (acute tubular necrosis): (3) Pneumonia: Qualifiers: Laterality: right Lung location: lower lobe of lung Pneumonia type: due to unspecified organism Qualified Code(s): J18.9 - Pneumonia, unspecified organism (4) DKA (diabetic ketoacidosis): Qualifiers: Diabetes mellitus complication detail: with coma 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 (5) Septic shock: (6) Congestive heart failure: (7) Metabolic encephalopathy: (8) Atrial fibrillation with rapid ventricular response: (9) Acute on chronic respiratory failure with hypoxia and hypercapnia: (10) Type 2 myocardial infarction: (11) Prostatic hypertrophy: Plan Septic shock with respiratory failure requiring mechanical ventilation Severe metabolic and respiratory acidosis FiO2 50% PEEP 8 concern for auto PEEP Pressure rate right now is 14-minute ventilation is 8 Repeat ABG after dialysis Mixed presentation of septic and cardiomyopathy I have added vasopressin and epinephrine to wean Levophed off Non-STEMI Type II CO Not a good candidate for coronary angiogram secondary to sepsis EF showed reduced ejection fraction Source of sepsis is pneumonia I have requested CT abdomen pelvis to rule out abdominal and renal pathology Positive hematuria is endorsing history of kidney stones I did tell her in case of kidney stone to be the nidus of infection he will need to be transferred as we do not have urology coverage We will do CT scan once he is more stable ATN: Requiring dialysis, temporary dialysis catheter placed 03/[address] Mcmanus Concern for PE with new onset A. fib Heparin drip was reversed with protamine to get hemodialysis catheter It can be started around noon Hematuria noted hemoglobin stable for now Severe metabolic acidosis with respiratory decompensation Auto PEEP Started bicarb drip DKA Currently on insulin drip along bicarb Rule out abdominal pathology with CT abdomen and pelvis Calcium gluconate given today Full code Guarded prognosis Tube feeds on hold for concern of gastric ischemia from the gangrene Family meeting conducted: Attestations Medical Necessity Statement*: Guarded prognosis continue ICU management Critical Care Time: 45 Coding Level of Care Code 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[employer] Diagnoses PATTIE (acute kidney injury) N17.9 ATN (acute tubular necrosis) N17.0 Pneumonia J18.9 Laterality: right Lung location: lower lobe of lung Pneumonia type: due to unspecified organism DKA (diabetic ketoacidosis) E09.11 Diabetes mellitus complication detail: with coma 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
[2022-03-21] MEDS: aspirin 81 mg Chew Tablet PO (11:17)
[2022-03-21] MEDS: pantoprazole DR 40 mg Tablet PO (11:17)
[2022-03-21] MEDS: lactobacillus 1 Tablet 1 TAB PO ×2 (11:18→18:14)
[2022-03-21 11:31] LABS: Glucose Point of Care 213 mg/dL (70-110)
--- NOTE | 2022-03-21 11:53 | PC.CHAP ---
Pastoral Care Encounter/Spiritual Assessment Type of Contact [] Declined public transit specialist visit [] Patient/Family/Request visit [] Outpatient visit [] Follow-up visit [] Physician referral [] Code/Alert [x] Routine visit [] Staff referral [] Actively dying [x] Patient sleeping [] Family support [] [] Out of room [] Palliative care [] [] Receiving care in room [] Pre-surgical visit [] Trauma [] Long length of stay [x] ICU visit [x] Other: vent Relational/Emotional Strength [] Patient feels connected with others/family/visitors/staff [] Distress [] Loneliness/isolation [] Abandonment Spirituality of Patient [] Person of Sharyn [] Attends Caodaism of their Sharyn [] Believes in Prayer [] Reads Bible or Jewish materials [] There are Spiritual issues to be addressed 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 Interventions [x] Prayer [] Active listening [] Non-anxious presence [] Spiritual/emotional support [] Crisis/trauma care [] Spiritual counseling [] Bereavement support [] Provided bereavement packet [] Provided Bible/devotional materials [] Provided toy/stuffed animal, coloring book to patient or family member [] Provided Communion [] Anointing/[place] [] Salvation [x] Completed spiritual assessment [] Other: Impact on Illness or Injury [] Angry [] Fearful [] Anxious [] Often cries [] Exhaustion [] Unable to work [] Unable to attend sabianism [] Unable to walk/stand [] Unable to read [] Unable to drive [] Unable to eat/drink [] Unable to sleep [] Unable to be with family [] Patient intubated [] Other: Summary Time spent with patient
[2022-03-21] MEDS: heparin drip 25,000 UNIT/500 ML PREMIX 20 UNIT IV (12:10)
[2022-03-21 12:28] LABS: Glucose Point of Care 165 mg/dL (70-110)
--- NOTE | 2022-03-21 12:42 | P.PN_ITS ---
Subjective Subjective: Patient had dialysis done. On multiple pressors. Vitals/I&O/Wt Last Vital Signs Temp 98.9 F 03/21/22 07:30 Pulse 120 H 03/21/22 12:30 Resp 17 03/21/22 12:33 BP 118/80 03/21/22 12:30 Pulse Ox 95 03/21/22 11:46 O2 Del Method 03/21/22 11:40 O2 Flow Rate 5 03/19/22 15:30 FiO2 50 03/21/22 11:46 03/20/22 03/21/22 03/21/22 22:59 06:59 14:59 Intake Total 1284.147 / 2428.761 1533.012 / 3961.773 1149.154 / 1149.154 Output Total 125 / 125 4 / 129 Balance 1159.147 / 2303.761 1529.012 / 3832.773 1149.154 / 1149.154 Weight last 48 hrs Weight 186 lb 3.2 oz Physical Exam Narrative: GENERAL: Patient is intubated and sedated HEART: Tachycardic LUNGS: Clear to auscultate bilaterally. [] ABDOMEN: Soft CENTRAL NERVOUS SYSTEM: Grossly nonfocal. [] EXTREMITIES: 1+ pitting edema. Cold lower extremities Urinary Catheter Management: Marrufo: Cath Placed During This Visit: yes Reason for Continuing Indwelling Catheter: Accurate Measurement of Urinary Output in Critically Ill Patients Urinary Catheter Date of Insertion: 03/19/22 Data : 03/22/22 02:03 03/22/22 02:03 Micro: Microbiology 03/19/22 17:40 Gram Stain - Final Sputum - Endotracheal Tube Aspirate Sputum Culture - Preliminary Staphylococcus sp coag neg 03/19/22 14:45 Urine Culture - Final Urine,Clean Catch 03/19/22 19:47 MRSA Culture - Final Nose 03/19/22 13:56 Blood Culture - Preliminary Blood 03/19/22 13:56 Blood Culture - Preliminary Blood NEGATIVE TO DATE 03/19/22 19:47 Bacterial Antigens - Final Urine,Voided A&P Assessment and plan (1) DKA (diabetic ketoacidosis): Qualifiers: Diabetes mellitus complication detail: with coma 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 Dialysis initiated. Continue current cardiac meds including amiodarone and anticoagulation May consider ischemic work-up once patient stable Thank you for involving us with care of this patient. We will continue to follow. Please call with questions. 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
[2022-03-21 13:05] LABS: Anion Gap 15.6 (5-19); Blood Urea Nitrogen 27 mg/dL (8-23); Calcium 7.9 mg/dL (8.5-10.5); Carbon Dioxide 22 mmol/L (22-29); Chloride 97 mmol/L (98-107); Glucose 169 mg/dL (65-115); Osmolality Calculated 281 mOsm/kg (285-295); Potassium 3.6 mmol/L (3.5-5.1); Sodium 131 mmol/L (136-145)
[2022-03-21 13:20] LABS: Glucose Point of Care 131 mg/dL (70-110)
[2022-03-21] MEDS: dextrose 5 % 500 ML 100 ML IV (13:21)
[2022-03-21 14:46] LABS: Glucose Point of Care 136 mg/dL (70-110)
[2022-03-21 15:25] LABS: Glucose Point of Care 136 mg/dL (70-110)
--- NOTE | 2022-03-21 15:33 | PM.ACPR ---
Procedure/Consent Procedure Narrative: The patient's left groin was inspected prepped and draped in the usual sterile fashion. Timeout was performed. All present were in agreement. 1% lidocaine was used to anesthetize the area over the left femoral vein. An access needle was used to access the left femoral vein with palpation. Guidewire was placed into the left femoral vein. An 11 blade scalpel was used to extend the insertion site at the skin. The needle was removed. Dilation was performed over the guidewire in a serial manner x2. The temporary hemodialysis catheter was then placed over the guidewire and the guidewire was removed. Both ports were flushed with normal saline. Caps were placed. The catheter was sewn into place with 3-0 silk. Sterile dressing was applied. Patient tolerated procedure well.
[2022-03-21 16:34] LABS: ABG PCO2 54.5 mmHg (35-45); ABG PH Result 7.23 (7.35-7.45); Arterial Blood Gas Hematocrit 37.5 % (42-52); Base Excess ABG -5.1 mmol/L (-2.0-2.0); Blood Gas Allen Test Pos; Blood Gas Operator Identificat GD; Blood Gas Sample Site Radial, left; Blood Gas Sample Type Arterial; HCO3 ABG 22.9 mmol/L (22-26); Oxygen Device VENT; PO2 ABG 75.7 mmHg (80.0-100.0)
[2022-03-21 16:39] LABS: Partial Thromboplastin Time 50.2 SECONDS (23.9-36.7)
[2022-03-21 16:54] LABS: Lactate (Lactic Acid level) 1.8 mmol/L (0.5-2.2)
[2022-03-21 17:16] LABS: Anion Gap 19.6 (5-19); Blood Urea Nitrogen 24 mg/dL (8-23); Calcium 8.1 mg/dL (8.5-10.5); Carbon Dioxide 22 mmol/L (22-29); Chloride 93 mmol/L (98-107); Glucose 149 mg/dL (65-115); Osmolality Calculated 279 mOsm/kg (285-295); Potassium 3.6 mmol/L (3.5-5.1); Sodium 131 mmol/L (136-145)
[2022-03-21 17:21] LABS: Creatinine Clr Calc Pharmacy 31.0845
[2022-03-21 17:59] LABS: ABG PCO2 41.9 mmHg (35-45); ABG PH Result 7.32 (7.35-7.45); Alveolar-Arterial Oxygen Gradi 19.1 mmHg (5-10); Arterial Blood Gas Hematocrit 36.3 % (42-52); Base Excess ABG -4.4 mmol/L (-2.0-2.0); Blood Gas Allen Test Pos; Blood Gas Operator Identificat GD; Blood Gas Sample Site Radial, left; Blood Gas Sample Type Arterial; Blood Gas Tidal Volume 0.55; HCO3 ABG 21.5 mmol/L (22-26); HGB O2 Sat 97.1 % (95-100); Methemoglobin 0.7 % (0.4-1.5); Oxygen Device VENT; Oxygen Saturation ABG 98.8; PO2 ABG 88.4 mmHg (80.0-100.0); Potassium Level - ABG 3.6 mmol/L (3.5-5.0); Total Hemoglobin 11.8 g/dL (14-18)
[2022-03-21] MEDS: insulin glargine 100 units/1 mL 10 UNIT SUBCUT (18:00)
[2022-03-21] MEDS: norepinephrine 8 MG in dextrose 5 % 500 ML 76.2 MG IV ×2 (18:02→21:37)
[2022-03-21] MEDS: EPINEPHrine 2.5 MG in sodium chloride 0.9% 250 ML 102.36 MG IV (18:03)
[2022-03-21 18:11] LABS: Glucose Point of Care 168 mg/dL (70-110)
[2022-03-21] MEDS: lidocaine 1% 5 ML in potassium chloride premix 100 ML 50 ML IV (18:15)
[2022-03-21 19:20] LABS: Glucose Point of Care 173 mg/dL (70-110)
[2022-03-21] MEDS: insulin lispro 100 unit/1 mL SUBCUT ×2 (19:20→22:27)
[2022-03-21 20:31] LABS: Partial Thromboplastin Time 60.5 SECONDS (23.9-36.7)
[2022-03-21 20:38] LABS: Anion Gap 17.5 (5-19); Blood Urea Nitrogen 25 mg/dL (8-23); Calcium 7.7 mg/dL (8.5-10.5); Carbon Dioxide 19 mmol/L (22-29); Chloride 92 mmol/L (98-107); Glucose 202 mg/dL (65-115); Osmolality Calculated 268 mOsm/kg (285-295); Potassium 4.5 mmol/L (3.5-5.1); Sodium 124 mmol/L (136-145)
[2022-03-21] MEDS: sodium bicarbonate 150 MEQ in dextrose 5% 1,000 ML 100 MEQ IV (20:49)
[2022-03-21] MEDS: atorvastatin 40 mg Tablet 20 MG PO (21:05)
[2022-03-21 21:45] LABS: Glucose Point of Care 281 mg/dL (70-110)
[2022-03-21 23:37] LABS: Potassium, Radom Urine 31 mmol/L; Urine Random Chloride 61 mmol/L; Urine Random Sodium 53 mmol/L
[2022-03-22] VITALS (110 sets, daily range): BP systolic 84–142; BP diastolic 57–97; PULSE 113–124; RESP 15–20; TEMP 36.5–37.2; O2SAT 93–98; BMI 32.9
[2022-03-22] MEDS: insulin lispro 100 unit/1 mL SUBCUT ×7 (00:17→23:53)
[2022-03-22] MEDS: vancomycin 1,250 MG/250 ML PIGGYBACK 250 MG IV (00:19)
[2022-03-22] MEDS: ipratropium 0.5 mg/2.5 mL Neb INHALATION ×7 (00:24→23:58)
[2022-03-22] MEDS: levalbuterol 1.25 mg/3 mL Neb INHALATION ×7 (00:25→23:58)
[2022-03-22 00:26] LABS: Glucose Point of Care 335 mg/dL (70-110)
[2022-03-22 00:54] LABS: Anion Gap 18.6 (5-19); Blood Urea Nitrogen 27 mg/dL (8-23); Calcium 7.5 mg/dL (8.5-10.5); Carbon Dioxide 20 mmol/L (22-29); Chloride 89 mmol/L (98-107); Glucose 352 mg/dL (65-115); Osmolality Calculated 275 mOsm/kg (285-295); Potassium 4.6 mmol/L (3.5-5.1); Sodium 123 mmol/L (136-145)
[2022-03-22 02:33] LABS: ABG PCO2 40.8 mmHg (35-45); Alveolar-Arterial Oxygen Gradi 21.1 mmHg (5-10); Arterial Blood Gas Hematocrit 36.8 % (42-52); Base Excess ABG -5.9 mmol/L (-2.0-2.0); Blood Gas Allen Test Pos; Blood Gas Operator Identificat JB; Blood Gas Sample Site Radial, right; Blood Gas Sample Type Arterial; Carboxyhemoglobin 0.9 %THgb (0.4-20.1); HCO3 ABG 20.2 mmol/L (22-26); HGB O2 Sat 95.2 % (95-100); Methemoglobin 0.6 % (0.4-1.5); Oxygen Device VENT; Oxygen Saturation ABG 96.7; PO2 ABG 74.1 mmHg (80.0-100.0); Potassium Level - ABG 4.1 mmol/L (3.5-5.0)
[2022-03-22 02:55] LABS: Basophils # 0.1 10^3/uL (0.0-0.1); Basophils % 0.3 %; Eosinophils # 0.1 10^3/uL (0.0-0.8); Eosinophils % 0.4 %; Hematocrit 37.8 % (42.0-52.0); Hemoglobin 11.5 g/dL (11.7-16.6); Lymphocytes # 1.1 10^3/uL (0.8-4.8); Lymphocytes % 4.8 %; Mean Corpuscular HGB Conc 30.4 g/dL (30.0-36.0); Mean Corpuscular Hemoglobin 28.4 pg (28.0-34.0); Mean Corpuscular Volume 93.3 fl (80-94); Mean Platelet Volume 11.8 fL (7.4-10.4); Monocytes % 4.6 %; Neutrophils # 19.46 10^3/uL (1.8-7.7); Neutrophils % 87.4 %; Nucleated Red Blood Cells # 0.1 /100WBC; Nucleated Red Blood Cells % 0.3 %; Platelet Count 226 10^3/cmm (130-400); Red Blood Count 4.05 10^6/uL (4.1-5.3); Red Cell Distribution Width 14.5 % (12.1-15.1); White Blood Count 22.3 10^3/uL (4.0-10.0)
[2022-03-22 03:07] LABS: Partial Thromboplastin Time 51.7 SECONDS (23.9-36.7)
[2022-03-22 03:19] LABS: Lactate (Lactic Acid level) 2.5 mmol/L (0.5-2.2)
[2022-03-22 03:20] LABS: Alanine Aminotransferase 58 U/L (0-41); Albumin Level 2.3 g/dL (3.5-5.2); Alkaline Phosphatase 122 U/L (40-130); Anion Gap 19.5 (5-19); Aspartate Amino Transferase 143 U/L (0-40); Blood Urea Nitrogen 27 mg/dL (8-23); Calcium 7.2 mg/dL (8.5-10.5); Carbon Dioxide 20 mmol/L (22-29); Chloride 90 mmol/L (98-107); Globulin 1.9 g/dL (1.3-4.6); Glucose 317 mg/dL (65-115); Magnesium 1.7 mg/dL (1.7-2.3); Osmolality Calculated 277 mOsm/kg (285-295); Phosphorus 4.2 mg/dL (2.5-4.5); Potassium 4.5 mmol/L (3.5-5.1); Sodium 125 mmol/L (136-145); Total Bilirubin 0.3 mg/dL (0.15-1.2); Total Protein 4.2 g/dL (6.6-8.7)
[2022-03-22 03:22] LABS: Creatine Phosphokinase 196 U/L (39-308)
[2022-03-22] MEDS: heparin 5,000 unit/mL INJ 1 mL IV (03:22)
[2022-03-22 04:47] LABS: 25 Hydroxy Vitamin D 5 ng/mL (30-100)
[2022-03-22 04:47] LABS: Glucose Point of Care 303 mg/dL (70-110)
[2022-03-22] MEDS: norepinephrine 8 MG in dextrose 5 % 500 ML 68.58 MG IV ×2 (05:10→12:43)
[2022-03-22] MEDS: budesonide 0.5 mg/2 mL Neb INHALATION ×2 (07:53→19:55)
[2022-03-22 08:01] LABS: Glucose Point of Care 319 mg/dL (70-110)
[2022-03-22] MEDS: docusate sodium 100 mg Capsule PO (08:09)
[2022-03-22] MEDS: aspirin 81 mg Chew Tablet PO (08:09)
[2022-03-22] MEDS: pantoprazole DR 40 mg Tablet PO (08:09)
[2022-03-22] MEDS: lactobacillus 1 Tablet 1 TAB PO (08:09)
--- NOTE | 2022-03-22 09:29 | PM.PN ---
Subjective Subjective: more awake, off sedatives. on 2 pressors and intubated. dec BS. Medications: Reviewed: Yes Medication Review Details: Current Medications Acetaminophen (Acetaminophen 325 Mg Tablet) 650 mg PO Q6H PRN PRN Reason: MILD PAIN Last Admin: 03/20/22 20:21 Dose: 650 mg Aspirin (Aspirin 81 Mg Chew Tablet) 81 mg PO DAILY [facility] Last Admin: 03/22/22 08:09 Dose: 81 mg Atorvastatin Calcium (Atorvastatin 40 Mg Tablet) 20 mg PO BEDTIME PIO Last Admin: 03/21/22 21:05 Dose: 20 mg Budesonide (Budesonide 0.5 Mg/2 Ml Neb) 0.5 mg INHALATION BID.RESPIRATORY PIO Last Admin: 03/22/22 07:53 Dose: 0.5 mg Chlorhexidine Gluconate (Chlorhexidine Gluconate 4% Btl 118 Ml) 1 applic TOPICAL 0100 PIO Last Admin: 03/22/22 01:38 Dose: Not Given Dextrose (Dextrose 50% Syringe 50 Ml) 25 ml IVP ONCE PRN; Protocol PRN Reason: hypoglycemia protocol Dextrose (Dextrose 50% Syringe 50 Ml) 50 ml IVP PRN PRN; Protocol PRN Reason: hypoglycemia protocol Dextrose (Dextrose 50% Syringe 50 Ml) 25 ml IVP ONCE PRN; Protocol PRN Reason: hypoglycemia protocol Dextrose (Dextrose 50% Syringe 50 Ml) 50 ml IVP PRN PRN; Protocol PRN Reason: hypoglycemia protocol Dextrose (Dextrose 50% Syringe 50 Ml) 25 ml IVP ONCE PRN; Protocol PRN Reason: hypoglycemia protocol Dextrose (Dextrose 50% Syringe 50 Ml) 50 ml IVP PRN PRN; Protocol PRN Reason: hypoglycemia protocol Docusate Sodium (Docusate Sodium 100 Mg Capsule) 100 mg PO BID [facility] Last Admin: 03/22/22 08:09 Dose: 100 mg Enoxaparin Sodium (Enoxaparin 80 Mg/0.8 Ml Syringe) 80 mg SUBCUT Q12H PIO Furosemide (Furosemide 10 Mg/Ml Sdv 2ml) 20 mg IVP Q24H [facility] Last Admin: 03/21/22 14:47 Dose: Not Given Glucagon (Glucagon 1 Mg/Ml Inj 1 Ml) 1 mg IM ONCE PRN; Protocol PRN Reason: Adult Acute Hypoglycemia Prot Glucagon (Glucagon 1 Mg/Ml Inj 1 Ml) 1 mg IM ONCE PRN; Protocol PRN Reason: Adult Acute Hypoglycemia Prot. Glucagon (Glucagon 1 Mg/Ml Inj 1 Ml) 1 mg IM ONCE PRN; Protocol PRN Reason: Adult Acute Hypoglycemia Prot. Heparin Sodium (Porcine) (Heparin 5,000 Unit/Ml Inj 1 Ml) 0 unit IV PRN PRN; Protocol PRN Reason: Heparin weight-base protocol Last Admin: 03/22/22 03:22 Dose: 1,700 unit Dextrose (D5w) 500 mls @ 100 mls/hr IV ONCE PRN; Protocol PRN Reason: Adult Acute Hypoglycemia Prot Last Titration: 03/21/22 19:02 Dose: Infused Insulin Human Regular 250 unit (/ Sodium Chloride) 252.5 mls @ 0 mls/hr IV .Q0M PIO; Protocol Last Titration: 03/21/22 18:40 Dose: Infused Imipenem/Cilastatin Sodium 250 (mg/ Sodium Chloride) 100 mls @ 200 mls/hr IV Q6H PIO; Protocol Last Infusion: 03/22/22 05:38 Dose: Infused Fentanyl 1,000 mcg/ Sodium (Chloride) 100 mls @ 0 mls/hr IV .Q0M PIO; Protocol Last Titration: 03/22/22 07:56 Dose: Infused Propofol (Diprivan) 1,000 mg in 100 mls @ 0 mls/hr IV .Q0M PIO; Protocol Last Titration: 03/22/22 07:57 Dose: 0 mcg/kg/min, 0 mls/hr Esmolol HCl (Brevibloc Drip) 2,500 mg in 250 mls @ 0 mls/hr IV .Q0M PIO; Protocol Last Titration: 03/20/22 00:00 Dose: 0 mcg/kg/min, 0 mls/hr Amiodarone HCl 900 mg/Dextrose/ IV Miscellaneous Supplies 518 mls @ 0 mls/hr IV .Q0M PIO; Protocol Last Admin: 03/21/22 18:42 Dose: 1 mg/min, 34.53 mls/hr Heparin Sodium/Sodium Chloride (Heparin Drip) 25,000 unit in 500 mls @ 0 mls/hr IV .Q0M PIO; Protocol Last Titration: 03/22/22 03:15 Dose: 14.21 unit/kg/hr, 24 mls/hr Dextrose (D5w) 500 mls @ 100 mls/hr IV ONCE PRN; Protocol PRN Reason: Adult Acute Hypoglycemia Prot Norepinephrine Bitartrate 8 mg (/ Dextrose) 508 mls @ 0 mls/hr IV .Q0M PIO; Protocol Last Admin: 03/22/22 05:10 Dose: 18 mcg/min, 68.58 mls/hr Furosemide 100 mg/ Sodium (Chloride) 50 mls @ 2.5 mls/hr IV .Q20H POI Last Admin: 03/21/22 22:36 Dose: 5 mg/hr, 2.5 mls/hr Epinephrine HCl 2.5 mg/ Sodium (Chloride) 252.5 mls @ 0 mls/hr IV .Q0M PIO; Protocol Last Titration: 03/22/22 03:41 Dose: 0 mcg/kg/min, 0 mls/hr Vasopressin 40 unit/ Sodium (Chloride) 40 mls @ 0.03 mls/min IV CONT PIO Last Admin: 03/21/22 22:34 Dose: 0.03 mls/min Albumin Human (Albumin) 12.5 gm in 50 mls @ 60 mls/hr IV PRN PRN PRN Reason: Hypotension and/or symptomatic Sodium Bicarbonate 50 meq/ (Sodium Chloride) 1,050 mls @ 100 mls/hr IV .[id number] PIO Dextrose (D5w) 500 mls @ 100 mls/hr IV ONCE PRN; Protocol PRN Reason: Adult Acute Hypoglycemia Prot Insulin Human Lispro (Insulin Lispro 100 Unit/1 Ml) 0 unit SUBCUT Q4H PIO; Protocol Last Admin: 03/22/22 08:24 Dose: 12 unit Ipratropium [place] (Ipratropium 0.5 Mg/2.5 Ml Neb) 0.5 mg INHALATION Q4H.RESPIRATORY PIO Last Admin: 03/22/22 07:53 Dose: 0.5 mg Lactobacillus Acidophilus (Lactobacillus 1 Tablet) 1 tab PO BID PIO Last Admin: 03/22/22 08:09 Dose: 1 tab Levalbuterol HCl (Levalbuterol 1.25 Mg/3 Ml Neb) 1.25 mg INHALATION Q4H.RESPIRATORY PIO Last Admin: 03/22/22 07:53 Dose: 1.25 mg Pantoprazole Sodium (Pantoprazole Dr 40 Mg Tablet) 40 mg PO DAILY PIO Last Admin: 03/22/22 08:09 Dose: 40 mg Rocuronium [place] (Rocuronium 10 Mg/Ml Inj 5ml) 50 mg IVP Q1H PRN PRN 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 Last Admin: 03/19/22 18:17 Dose: 50 mg Vitals/I&O/Wt Last Vital Signs Temp 97.8 F 03/22/22 07:00 Pulse 116 H 03/22/22 08:30 Resp 18 03/22/22 08:00 BP 106/74 03/22/22 08:30 Pulse Ox 94 03/22/22 08:00 O2 Del Method 03/22/22 07:59 O2 Flow Rate 5 03/19/22 15:30 FiO2 40 03/22/22 08:00 03/21/22 03/22/22 03/22/22 22:59 06:59 14:59 Intake Total 3245.856 / 5387.040 1946.895 / 7333.935 167.451 / 167.451 Output Total 36 / 836 27 / 863 Balance 3209.856 / 4551.040 1919.895 / 6470.935 167.451 / 167.451 Weight last 48 hrs Weight 95.481 kg Weight 90.1 kg Weight 89.811 kg Physical Exam Narrative: more responsive off of sedatives Levo and Vasopressin, vent TV 500, fio2=40%, RR 18, PEEP 8 heent- nc/at, lungd crackles b/l heart irreg irreg abd soft, nt, + bs ext 3+ edema neuro- not responsive Urinary Catheter Management: Marrufo: Cath Placed During This Visit: yes Reason for Continuing Indwelling Catheter: Accurate Measurement of Urinary Output in Critically Ill Patients Urinary Catheter Date of Insertion: 03/19/22 Data : 03/22/22 02:03 03/22/22 02:03 Micro: Microbiology 03/19/22 13:56 Blood Culture - Preliminary Blood Bacillus sp not b. anthracis 03/19/22 17:40 Gram Stain - Final Sputum - Endotracheal Tube Aspirate Sputum Culture - Preliminary Staphylococcus sp coag neg 03/19/22 14:45 Urine Culture - Final Urine,Clean Catch A&P Assessment and plan (1) PATTIE (acute kidney injury): 72 yr old man 1. PATTIE- normal cr 0.9 in 2019. cr 1.2 on admission. nw/ PATTIE stage 3- anuric -u/a -turbid- 2+ gluc, 1+ ketones, large blood, 2+ bact. ur na 53 -most likely ATN -remains anuric -renal us rt =11.8 cm, left 12.4 cm- normal renal us -normal ck -normal complements -serologies are pending -if fails IHD. Consider CRRT 1b. Pt s/p first HD yesterday- repeat HD now 3 hrs, 3k, remove 1 l 2.acid/ base status- AG improved w/ dialysis. glucose approx 300 -resp acidosis improving pH 7.3 -serum ketones were neg yesterday -d/c ivf 3. poor BS- agree w/ Abd ct when more stable 4. Septic shock- renal dose abx - CRP 695 -wbc remains 22 -lower vanco dose w/ level of 25 5. cardiogenic shock- repeat trops 6. hyponatremia- sodium stable at 125 -normal tsh. -high ur na of 53 -etiology likely PATTIE 7. replace vit d prognosis is guarded- seen and examined w/ rN discussed w/ Dr Smith time spent 30 minutes Plan see above Attestations Medical Necessity Statement*: multi-organ failure Time Spent in Patient Care: 16 - 35 minutes (>than 50% of time spent in counselling and/or direct pt care on unit). Coding Level of Care Code Acute Parks Recreation Director for [facility]al[facility]oval Diagnoses PATTIE (acute kidney injury) N17.9
--- NOTE | 2022-03-22 09:32 | PC.NURSE ---
received after report minimal response noted pupils sluggish minimal response noted 3 to 4 plus edema noted at this time central line right groin and riht ac space noted .. multiple gtts infusing at this time weaned propofol off and fent down to awaken pt at this time with noted increase in response now open eyes withdraw from pain ... urine output minimal
--- NOTE | 2022-03-22 09:57 | PC.SOCIAL ---
IMM Update pg 2 of IMM not updated as patient is intubated and not anticipating DC in the next 24-48hours. Copy placed in chart.
--- NOTE | 2022-03-22 10:00 | CTR_ITS ---
PROCEDURE INFORMATION: Exam: CT Chest Without Contrast; Diagnostic Exam date and time: 03/22/2022 3:28 PM Age: 72 years old Clinical indication: Other: AMS; Patient HX: PT unable to hold arms above head; Additional info: Sepsis TECHNIQUE: Imaging protocol: Diagnostic computed tomography of the chest without contrast. Radiation optimization: All CT scans at this facility use at least one of these dose optimization techniques: automated exposure control; mA and/or kV adjustment per patient size (includes targeted exams where dose is matched to clinical indication); or iterative reconstruction. COMPARISON: CR (CHEST, ) 03/19/2022 5:35 PM RADIATION DOSE METRICS: Total DLP (mGy-cm): 1208.68 FINDINGS: Tubes, catheters and devices: ET tube approximately 2 cm above moses. Lungs: Lung assessment is limited due to artifacts and motion. Bilateral small to moderate pleural effusions. Pulmonary consolidative changes are noted adjacent to the bilateral pleural effusions which may be related to compressive atelectasis versus superimposed pneumonia. Clinical correlation and follow-up should be obtained. There is probable minimal centrilobular emphysema with upper lobe predominance. Multiple tiny linear bilateral basilar opacities are likely atelectasis/scarring. No consolidation or ground-glass opacities in the upper lung zone. Pleural spaces: See Lungs finding. Heart: Normal heart size with coronary calcification. Lymph nodes: No enlarged lymph nodes. Vasculature: Unremarkable. No aortic aneurysm. Bones/joints: Osteopenia. Subacute/chronic fracture lateral right 1st rib. Soft tissues: Images are somewhat degraded due to external streak artifacts arising from patient's arm(s). PROCEDURE INFORMATION: Exam: CT Abdomen And Pelvis Without Contrast Exam date and time: 03/22/2022 3:28 PM Age: 72 years old Clinical indication: Other: AMS; Patient HX: PT unable to hold arms above head; Additional info: Sepsis TECHNIQUE: Imaging protocol: Computed tomography of the abdomen and pelvis without contrast. Radiation optimization: All CT scans at this facility use at least one of these dose optimization techniques: automated exposure control; mA and/or kV adjustment per patient size (includes targeted exams where dose is matched to clinical indication); or iterative reconstruction. COMPARISON: US renal BI* [id number] 03/21/2022 3:15 PM RADIATION DOSE METRICS: Total DLP (mGy-cm): 1208.68 FINDINGS: Tubes, catheters and devices: There is an NG tube with the tip in the proximal duodenum. There are bilateral femoral venous catheters with the tips in the upper iliac veins. Liver: Normal. No mass. Gallbladder and bile ducts: Gallbladder is somewhat distended which may be related to prolonged fasting versus cholestasis. No obvious imaging signs of acute cholecystitis or bile duct dilatation. Clinical correlation should be obtained. Sonographic follow-up may also be considered if clinically indicated. Pancreas: Normal. No ductal dilation. Spleen: Normal. No splenomegaly. Adrenal glands: Normal. No mass. Kidneys and ureters: No obstructing calculus. No hydronephrosis. Stomach and bowel: Small-moderate amount of fecal retention. No obvious bowel dilatation, pneumatosis or suspicious bowel wall thickening however assessment is limited due to lack of contrast. Colonic diverticulosis. Appendix: No evidence of appendicitis. Intraperitoneal space: Small amount of abdominopelvic ascites. Vasculature: No abdominal aortic aneurysm. Lymph nodes: No enlarged lymph nodes. Urinary bladder: Marrufo balloon in the collapsed urinary bladder. Bladder wall is suboptimally assessed due to nondistention. Reproductive: Unremarkable as visualized. Bones/joints: Osteopenia. Multilevel vertebral disc degeneration and endplate osteophytes. No acute osseous findings otherwise. Soft tissues: Images are somewhat degraded due to external streak artifacts arising from patient's arm(s). Mild diffuse subcutaneous and presacral edema suggesting 3rd spacing/anasarca. CT/[place] [id number] IMPRESSION: 1. Limited exam due to artifacts as described. 2. Pulmonary consolidative changes are noted adjacent to the bilateral pleural effusions which may be related to compressive atelectasis versus superimposed pneumonia. Clinical correlation and follow-up should be obtained. 3. Coronary calcification. IMPRESSION: 1. Limited exam due to lack of contrast and other artifacts. 2. Small amount of abdominopelvic ascites. No free air or obvious drainable abscess. 3. Colonic diverticulosis. 4. Gallbladder distension. See discussion above. 5. Soft tissue findings as above.
--- NOTE | 2022-03-22 10:00 | CTR_ITS ---
PROCEDURE INFORMATION: Exam: CT Head Without Contrast Exam date and time: 03/22/2022 3:24 PM Age: 72 years old Clinical indication: Other: AMS TECHNIQUE: Imaging protocol: Computed tomography of the head without contrast. Radiation optimization: All CT scans at this facility use at least one of these dose optimization techniques: automated exposure control; mA and/or kV adjustment per patient size (includes targeted exams where dose is matched to clinical indication); or iterative reconstruction. COMPARISON: No relevant prior studies available. RADIATION DOSE METRICS: Total DLP (mGy-cm): 1079.68 FINDINGS: Brain: There is a wedge shaped 2 x 3 cm hypodensity in the left parietal lobe which likely reflects encephalomalacia, but correlation with previous brain imaging and or follow-up MRI could be considered to better characterize. There is no intracranial mass effect or midline shift.There are global involutional changes of the brain which are in keeping with the patient's age. Periventricular hypodensities are nonspecific but most likely reflect chronic microvascular ischemic disease. No acute intracranial hemorrhage or abnormal extra-axial collection identified. Cerebral ventricles: No ventriculomegaly. Paranasal sinuses: The visualized sinuses are unremarkable. Mastoid air cells: There is partial opacification of the mastoid air cells bilaterally. Bones/joints: No calvarial fracture. Soft tissues: Unremarkable. CT/CT head wo con* [id number] IMPRESSION: 1. Likely encephalomalacia in the left parietal lobe, but correlation with prior brain imaging and or follow-up MRI could be considered to better characterize. 2. Bilateral mastoid effusions.
[2022-03-22 10:03] LABS: Partial Thromboplastin Time 64.9 SECONDS (23.9-36.7)
--- NOTE | 2022-03-22 10:08 | PC.CHAP ---
Pastoral Care Encounter/Spiritual Assessment Type of Contact [] Declined senior caregiver visit [] Patient/Family/Request visit [] Outpatient visit [] Follow-up visit [] Physician referral [] Code/Alert [x] Routine visit [] Staff referral [] Actively dying [x] Patient sleeping [x] Family support [] [] Out of room [] Palliative care [] [] Receiving care in room [] Pre-surgical visit [] Trauma [] Long length of stay [x] ICU visit [x] Other: PT on vent.. family has traveled from [place] to be with him Relational/Emotional Strength [] Patient feels connected with others/family/visitors/staff [] Distress [] Loneliness/isolation [] Abandonment Spirituality of Patient [] Person of Sharyn [] Attends [facility] of their Sharyn [] Believes in Prayer [] Reads Bible or Moravian materials [] There are Spiritual issues to be addressed Back Up Worker Interventions [x] Prayer [] Active listening [] Non-anxious presence [] Spiritual/emotional support [] Crisis/trauma care [] Spiritual counseling [] Bereavement support [] Provided bereavement packet [] Provided Bible/devotional materials [] Provided toy/stuffed animal, coloring book to patient or family member [] Provided Communion [] Anointing/[place] [] Salvation [x] Completed spiritual assessment [] Other: Impact on Illness or Injury [] Angry [] Fearful [] Anxious [] Often cries [] Exhaustion [] Unable to work [] Unable to attend shinto [] Unable to walk/stand [] Unable to read [] Unable to drive [] Unable to eat/drink [] Unable to sleep [] Unable to be with family [] Patient intubated [] Other: Summary Time spent with patient
[2022-03-22] MEDS: heparin drip 25,000 UNIT/500 ML PREMIX 24 UNIT IV (10:50)
[2022-03-22] MEDS: propofol 1,000 MG/100 ML INJ 5.01 MG IV (10:55)
--- NOTE | 2022-03-22 11:48 | PM.PN ---
Subjective Subjective: Patient is intubated sedated Plan for dialysis Acidosis has improved Bicarb drip to be turned off Patient might need CRRT waiting on CT abdomen pelvis Subcu skin negative, he is currently on vancomycin FiO2 50 to 40% Afebrile today Cultures negative DKA resolved with Metabolic acidosis related to lactic acidemia AnUric Vitals/I&O/Wt Last Vital Signs Temp 98.2 F 03/22/22 10:00 Pulse 114 H 03/22/22 11:03 Resp 19 H 03/22/22 11:04 BP 120/83 03/22/22 10:00 Pulse Ox 93 03/22/22 11:04 O2 Del Method 03/22/22 11:03 O2 Flow Rate 5 03/19/22 15:30 FiO2 40 03/22/22 11:04 03/21/22 03/22/22 03/22/22 22:59 06:59 14:59 Intake Total 3245.856 / 5387.040 1946.895 / 7333.935 863.184 / 863.184 Output Total 36 / 836 27 / 863 Balance 3209.856 / 4551.040 1919.895 / 6470.935 863.184 / 863.184 Weight last 48 hrs Weight 95.481 kg Weight 90.1 kg Weight 89.811 kg Physical Exam Narrative: Patient clinically looks fluid overloaded Variable S1-S2 tachyarrhythmia Abdomen absent bowel sounds Lung auscultation reveals crackles Severe edema of legs Patient is blinking eyes trying to wake up off sedation No mottling Clinically looks fluid overloaded Urinary Catheter Management: Marrufo: Cath Placed During This Visit: yes Reason for Continuing Indwelling Catheter: Accurate Measurement of Urinary Output in Critically Ill Patients Urinary Catheter Date of Insertion: 03/19/22 Data : 03/22/22 02:03 03/22/22 02:03 Micro: Microbiology 03/19/22 13:56 Blood Culture - Preliminary Blood Bacillus sp not b. 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 (5) Pneumonia: Qualifiers: Laterality: right Lung location: lower lobe of lung Pneumonia type: due to unspecified organism Qualified Code(s): J18.9 - Pneumonia, unspecified organism (6) Metabolic encephalopathy: (7) Atrial fibrillation with rapid ventricular response: (8) Acute on chronic respiratory failure with hypoxia and hypercapnia: (9) Type 2 myocardial infarction: (10) Prostatic hypertrophy: Plan Respiratory failure requiring mechanical ventilation FiO2 minimal settings 40 to 50% Hypercapnia has improved As per the RT patient was showing signs of auto PEEP yesterday PCO2 improved with improvement in minute ventilation Metabolic acidosis improving Bicarb drip turned off We will give extra dose of DKA resolved Lactic acidemia is persistent Requested CT abdomen pelvis Absent bowel sounds Persistent leukocytosis, septic shock Weaning off levo, Currently on 2 vasopressors Absent bowel sounds Plan to start TPN by tomorrow Systolic congestive heart exacerbation 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 NSTEMI Continue heparin drip ATN Dialysis, will need CRRT Septic shock MRSA PCR negative vancomycin discontinued We will continue heparin for concern of PE Calcium gluconate at the dose will be given today Full code Guarded prognosis Multiple family meetings conducted throughout hospitalization Attestations Medical Necessity Statement*: Continue hospitalization Critical Care Time: 40 Coding Level of Care Code Acute Shoe Lining Fitter for Chg Fwd Diagnoses ATN (acute tubular necrosis) N17.0 Congestive heart failure I50.9 Septic shock A41.9; R65.21 DKA (diabetic ketoacidosis) E09.11 Diabetes mellitus complication detail: with coma 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
[2022-03-22 12:16] LABS: Glucose Point of Care 333 mg/dL (70-110)
[2022-03-22] MEDS: calcium gluconate 0.9% NaCL 1 GM/50 ML PREMIX IV (12:49)
[2022-03-22 16:14] LABS: Glucose Point of Care 220 mg/dL (70-110)
[2022-03-22 16:27] LABS: Anti-Double Strand DNA AB <1 IU/mL
--- NOTE | 2022-03-22 16:57 | P.PN_ITS ---
Subjective Subjective: Patient still intubated.No signs of clinical improvement Vitals/I&O/Wt Last Vital Signs Temp 98.1 F 03/22/22 16:33 Pulse 121 H 03/22/22 16:33 Resp 18 03/22/22 16:33 BP 125/90 03/22/22 16:33 Pulse Ox 94 03/22/22 16:00 O2 Del Method 03/22/22 16:00 O2 Flow Rate 5 03/19/22 15:30 FiO2 40 03/22/22 16:00 03/22/22 03/22/22 03/22/22 06:59 14:59 22:59 Intake Total 1946.895 / 7333.935 1581.184 / 1581.184 522.676 / 2103.860 Output Total 57 / 3300 / 3357 Balance 1919.895 / 6470.935 1524.184 / 1524.184 -2777.324 / -1253.140 Weight last 48 hrs Weight 207 lb 7.28 oz Weight 210 lb 8 oz Weight 198 lb 10.184 oz Weight 198 lb Physical Exam Narrative: GENERAL: Patient is intubated and sedated HEART: Tachycardic LUNGS: Clear to auscultate bilaterally. [] ABDOMEN: Soft CENTRAL NERVOUS SYSTEM: Grossly nonfocal. [] EXTREMITIES: 2+ pitting edema. Cold lower extremities Urinary Catheter Management: Marrufo: Cath Placed During This Visit: yes Reason for Continuing Indwelling Catheter: Accurate Measurement of Urinary Output in Critically Ill Patients Urinary Catheter Date of Insertion: 03/19/22 Data : 03/24/22 06:00 03/24/22 06:00 Micro: Microbiology 03/19/22 13:56 Blood Culture - Preliminary Blood Bacillus sp not b. 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 Requiring pressor support and intubated. Thank you for involving us with care of this patient. Please call with questions. Attestations Medical Necessity Statement*: Care expected to cross 2 midnights. Coding Level of Care Code Acute Medical Delivery Driver for 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
[2022-03-22 20:02] LABS: Glucose Point of Care 190 mg/dL (70-110)
[2022-03-22] MEDS: atorvastatin 40 mg Tablet 20 MG PO (20:08)
[2022-03-22] MEDS: FUROsemide 100 MG in sodium chloride 0.9% 40 ML IV (20:49)
[2022-03-22 23:05] LABS: Partial Thromboplastin Time 75.5 SECONDS (23.9-36.7)
[2022-03-22 23:24] LABS: Glucose Point of Care 146 mg/dL (70-110)
[2022-03-22] MEDS: norepinephrine 8 MG in dextrose 5 % 500 ML 41.91 MG IV (23:41)
[2022-03-23] VITALS (108 sets, daily range): BP systolic 97–160; BP diastolic 63–105; PULSE 110–130; RESP 15–29; TEMP 36.1–36.9; O2SAT 91–98
[2022-03-23] MEDS: chlorhexidine gluconate 4% Btl 118 mL 1 APPLIC TOPICAL (02:44)
[2022-03-23] MEDS: ipratropium 0.5 mg/2.5 mL Neb INHALATION ×3 (03:37→11:15)
[2022-03-23] MEDS: levalbuterol 1.25 mg/3 mL Neb INHALATION ×6 (03:37→23:49)
[2022-03-23 04:05] LABS: Glucose Point of Care 124 mg/dL (70-110)
[2022-03-23 04:40] LABS: ABG PCO2 32.2 mmHg (35-45); ABG PH Result 7.39 (7.35-7.45); Arterial Blood Gas Hematocrit 37.5 % (42-52); Base Excess ABG -4.5 mmol/L (-2.0-2.0); Blood Gas Allen Test Pos; Blood Gas Operator Identificat MONRO; Blood Gas Sample Site Radial, left; Blood Gas Sample Type Arterial; HCO3 ABG 19.6 mmol/L (22-26); Oxygen Device VENT; PO2 ABG 89.6 mmHg (80.0-100.0)
[2022-03-23] MEDS: propofol 1,000 MG/100 ML INJ 5.01 MG IV (05:26)
[2022-03-23 05:47] LABS: Hematocrit 36.7 % (42.0-52.0); Mean Corpuscular HGB Conc 32.7 g/dL (30.0-36.0); Mean Corpuscular Hemoglobin 28.8 pg (28.0-34.0); Mean Platelet Volume 11.8 fL (7.4-10.4); Platelet Count 206 10^3/cmm (130-400); Red Blood Count 4.17 10^6/uL (4.1-5.3); Red Cell Distribution Width 14.4 % (12.1-15.1); White Blood Count 21.2 10^3/uL (4.0-10.0)
[2022-03-23 05:58] LABS: Partial Thromboplastin Time 59.4 SECONDS (23.9-36.7)
[2022-03-23 06:06] LABS: Slide Review Slide Review Perform
[2022-03-23 06:08] LABS: Absolute Neutrophil 19.9 10^3/cmm (1.4-6.5); Absolute Segmented Neutrophil 15.3 10/cmm (1.6-7.1); Alanine Aminotransferase 540 U/L (0-41); Albumin Level 1.8 g/dL (3.5-5.2); Alkaline Phosphatase 150 U/L (40-130); Anion Gap 19.4 (5-19); Band Neutrophils Absolute 4.7 10^3/cmm (0.0-1.2); Blood Urea Nitrogen 32 mg/dL (8-23); Calcium 7.6 mg/dL (8.5-10.5); Carbon Dioxide 18 mmol/L (22-29); Chloride 91 mmol/L (98-107); Eosinophils 0 %; Globulin 3.4 g/dL (1.3-4.6); Glucose 158 mg/dL (65-115); Lymphocytes 2 %; Lymphocytes Absolute 0.4 10^3/cmm (1.2-3.4); Magnesium 1.7 mg/dL (1.7-2.3); Monocytes Absolute 0.6 10^3/cmm (0.1-0.6); Osmolality Calculated 268 mOsm/kg (285-295); Phosphorus 4.8 mg/dL (2.5-4.5); Platelet Estimate Normal (Normal); Potassium 4.4 mmol/L (3.5-5.1); Segmented Neutrophils 72 %; Sodium 124 mmol/L (136-145); Total Bilirubin 0.5 mg/dL (0.15-1.2); Total Cells Counted 100 (0-100); Total Protein 5.2 g/dL (6.6-8.7)
[2022-03-23 08:13] LABS: Glucose Point of Care 176 mg/dL (70-110)
[2022-03-23] MEDS: budesonide 0.5 mg/2 mL Neb INHALATION ×2 (08:24→20:27)
[2022-03-23] MEDS: heparin drip 25,000 UNIT/500 ML PREMIX 22 UNIT IV (08:32)
[2022-03-23] MEDS: insulin lispro 100 unit/1 mL SUBCUT ×4 (08:33→21:20)
[2022-03-23] MEDS: pantoprazole DR 40 mg Tablet PO (08:35)
[2022-03-23] MEDS: aspirin 81 mg Chew Tablet PO (08:35)
[2022-03-23] MEDS: docusate sodium 100 mg Capsule PO (08:35)
[2022-03-23] MEDS: lactulose oral liq 20 gm/30 mL UDC 10 GM NG-TUBE (08:44)
--- NOTE | 2022-03-23 09:12 | PM.PN ---
Subjective Subjective: in pain, uncomfortable, tachycardic on vent. s/p HD, head, chest, and abd ct yesterday Medications: Reviewed: Yes Medication Review Details: Current Medications Acetaminophen (Acetaminophen 325 Mg Tablet) 650 mg PO Q6H PRN PRN Reason: MILD PAIN Last Admin: 03/20/22 20:21 Dose: 650 mg Aspirin (Aspirin 81 Mg Chew Tablet) 81 mg PO DAILY [facility] Last Admin: 03/23/22 08:35 Dose: 81 mg Atorvastatin Calcium (Atorvastatin 40 Mg Tablet) 20 mg PO BEDTIME PIO Last Admin: 03/22/22 20:08 Dose: 20 mg Budesonide (Budesonide 0.5 Mg/2 Ml Neb) 0.5 mg INHALATION BID.RESPIRATORY [facility] Last Admin: 03/23/22 08:24 Dose: 0.5 mg Chlorhexidine Gluconate (Chlorhexidine Gluconate 4% Btl 118 Ml) 1 applic TOPICAL 0100 [facility] Last Admin: 03/23/22 02:44 Dose: 1 bottle Dextrose (Dextrose 50% Syringe 50 Ml) 25 ml IVP ONCE PRN; Protocol PRN Reason: hypoglycemia protocol Dextrose (Dextrose 50% Syringe 50 Ml) 50 ml IVP PRN PRN; Protocol PRN Reason: hypoglycemia protocol Dextrose (Dextrose 50% Syringe 50 Ml) 25 ml IVP ONCE PRN; Protocol PRN Reason: hypoglycemia protocol Dextrose (Dextrose 50% Syringe 50 Ml) 50 ml IVP PRN PRN; Protocol PRN Reason: hypoglycemia protocol Dextrose (Dextrose 50% Syringe 50 Ml) 25 ml IVP ONCE PRN; Protocol PRN Reason: hypoglycemia protocol Dextrose (Dextrose 50% Syringe 50 Ml) 50 ml IVP PRN PRN; Protocol PRN Reason: hypoglycemia protocol Docusate Sodium (Docusate Sodium 100 Mg Capsule) 100 mg PO BID [facility] Last Admin: 03/23/22 08:35 Dose: 100 mg Glucagon (Glucagon 1 Mg/Ml Inj 1 Ml) 1 mg IM ONCE PRN; Protocol PRN Reason: Adult Acute Hypoglycemia Prot Glucagon (Glucagon 1 Mg/Ml Inj 1 Ml) 1 mg IM ONCE PRN; Protocol PRN Reason: Adult Acute Hypoglycemia Prot. Glucagon (Glucagon 1 Mg/Ml Inj 1 Ml) 1 mg IM ONCE PRN; Protocol PRN Reason: Adult Acute Hypoglycemia Prot. Heparin Sodium (Porcine) (Heparin 5,000 Unit/Ml Inj 1 Ml) 0 unit IV PRN PRN; Protocol PRN Reason: Heparin weight-base protocol Last Admin: 03/22/22 03:22 Dose: 1,700 unit Dextrose (D5w) 500 mls @ 100 mls/hr IV ONCE PRN; Protocol PRN Reason: Adult Acute Hypoglycemia Prot Last Infusion: 03/21/22 19:02 Dose: Infused Insulin Human Regular 250 unit (/ Sodium Chloride) 252.5 mls @ 0 mls/hr IV .Q0M PIO; Protocol Last Titration: 03/21/22 18:40 Dose: Infused Imipenem/Cilastatin Sodium 250 (mg/ Sodium Chloride) 100 mls @ 200 mls/hr IV Q6H PIO; Protocol Last Infusion: 03/23/22 05:06 Dose: Infused Fentanyl 1,000 mcg/ Sodium (Chloride) 100 mls @ 0 mls/hr IV .Q0M PIO; Protocol Last Admin: 03/23/22 08:59 Dose: 75 mcg/hr, 7.5 mls/hr Propofol (Diprivan) 1,000 mg in 100 mls @ 0 mls/hr IV .Q0M PIO; Protocol Last Admin: 03/23/22 05:26 Dose: 10 mcg/kg/min, 5.01 mls/hr Esmolol HCl (Brevibloc Drip) 2,500 mg in 250 mls @ 0 mls/hr IV .Q0M PIO; Protocol Last Titration: 03/20/22 00:00 Dose: 0 mcg/kg/min, 0 mls/hr Amiodarone HCl 900 mg/Dextrose/ IV Miscellaneous Supplies 518 mls @ 0 mls/hr IV .Q0M PIO; Protocol Last Titration: 03/22/22 18:16 Dose: 0.5 mg/min, 17.27 mls/hr Heparin Sodium/Sodium Chloride (Heparin Drip) 25,000 unit in 500 mls @ 0 mls/hr IV .Q0M PIO; Protocol Last Admin: 03/23/22 08:32 Dose: 13.02 unit/kg/hr, 22 mls/hr Dextrose (D5w) 500 mls @ 100 mls/hr IV ONCE PRN; Protocol PRN Reason: Adult Acute Hypoglycemia Prot Norepinephrine Bitartrate 8 mg (/ Dextrose) 508 mls @ 0 mls/hr IV .Q0M PIO; Protocol Last Admin: 03/22/22 23:41 Dose: 11 mcg/min, 41.91 mls/hr Furosemide 100 mg/ Sodium (Chloride) 50 mls @ 2.5 mls/hr IV .Q20H PIO Last Admin: 03/22/22 20:49 Dose: 5 mg/hr, 2.5 mls/hr Epinephrine HCl 2.5 mg/ Sodium (Chloride) 252.5 mls @ 0 mls/hr IV .Q0M PIO; Protocol Last Titration: 03/22/22 03:41 Dose: 0 mcg/kg/min, 0 mls/hr Vasopressin 40 unit/ Sodium (Chloride) 40 mls @ 0.03 mls/min IV CONT PIO Last Admin: 03/23/22 00:39 Dose: 0.03 mls/min Albumin Human (Albumin) 12.5 gm in 50 mls @ 60 mls/hr IV PRN PRN PRN Reason: Hypotension and/or symptomatic Dextrose (D5w) 500 mls @ 100 mls/hr IV ONCE PRN; Protocol PRN Reason: Adult Acute Hypoglycemia Prot Insulin Human Lispro (Insulin Lispro 100 Unit/1 Ml) 0 unit SUBCUT Q4H PIO; Protocol Last Admin: 03/23/22 08:33 Dose: 4 unit Ipratropium [place] (Ipratropium 0.5 Mg/2.5 Ml Neb) 0.5 mg INHALATION Q4H.RESPIRATORY PIO Last Admin: 03/23/22 08:24 Dose: 0.5 mg Lactobacillus Acidophilus (Lactobacillus 1 Tablet) 1 tab PO BID PIO Last Admin: 03/23/22 08:53 Dose: Not Given Lactulose (Lactulose Oral Liq 20 Gm/30 Ml Udc) 10 gm NG-TUBE DAILY PIO Last Admin: 03/23/22 08:44 Dose: 10 gm Levalbuterol HCl (Levalbuterol 1.25 Mg/3 Ml Neb) 1.25 mg INHALATION Q4H.RESPIRATORY PIO Last Admin: 03/23/22 08:24 Dose: 1.25 mg Pantoprazole Sodium (Pantoprazole Dr 40 Mg Tablet) 40 mg PO DAILY PIO Last Admin: 03/23/22 08:35 Dose: 40 mg Rocuronium [place] (Rocuronium 10 Mg/Ml Inj 5ml) 50 mg IVP Q1H PRN 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 Last Admin: 03/19/22 18:17 Dose: 50 mg Vitals/I&O/Wt Last Vital Signs Temp 97.2 F L 03/23/22 08:00 Pulse 117 H 03/23/22 08:28 Resp 18 03/23/22 08:28 BP 114/76 03/23/22 08:00 Pulse Ox 97 03/23/22 08:28 O2 Del Method 03/23/22 08:28 O2 Flow Rate 5 03/19/22 15:30 FiO2 40 03/23/22 08:28 03/22/22 03/23/22 03/23/22 22:59 06:59 14:59 Intake Total 1092.711 / 2673.895 853.528 / 3527.423 206.958 / 206.958 Output Total 3310 / 3367 42 / 3409 Balance -2217.289 / -693.105 811.528 / 118.423 206.958 / 206.958 Weight last 48 hrs Weight 95.663 kg Weight 94.1 kg Weight 95.481 kg Weight 90.1 kg Physical Exam Narrative: responsive, uncomfortable off of sedatives Levo @9 vent TV 500, fio2=36%, RR 18, PEEP 8 heent- nc/at, lungd crackles b/l heart irreg irre, tachy abd soft, nt, + bs ext 3+ edema neuro-awake, responsive, in pain, moves Urinary Catheter Management: Marrufo: Cath Placed During This Visit: yes Reason for Continuing Indwelling Catheter: Accurate Measurement of Urinary Output in Critically Ill Patients Urinary Catheter Date of Insertion: 03/19/22 Data : 03/23/22 05:30 03/23/22 05:30 A&P Assessment and plan (1) PATTIE (acute kidney injury): 72 yr old man 1. PATTIE- normal cr 0.9 in 2020. cr 1.2 on admission. nw/ PATTIE stage 3- anuric -u/a -turbid- 2+ gluc, 1+ ketones, large blood, 2+ bact. ur na 53 -most likely ATN -remains anuric -renal us rt =11.8 cm, left 12.4 cm- normal renal us -normal ck -normal complements -Anti DsDNA neg, other serologies are pending -tolerated IHD last 2 days- repeat now SUF 3 hrs, remove 1.5 -2l 2.acid/ base status- AG remains 15, resp alkalosis- as tachypneic pH 7.39 3. DM- improved glucose control 4. Septic shock- renal dose abx - CRP 695 -wbc remains 21 ct noted-. Pulmonary consolidative changes are noted adjacent to the bilateral pleural effusions which may be related to compressive atelectasis versus superimposed pneumonia. Clinical correlation and follow-up should be obtained.. 5. cardiogenic shock- 6. hyponatremia- sodium stable at 124 -normal tsh. -high ur na of 53 -etiology likely PATTIE 7. rising LFT's and abnormal Gallbladder on CT- consider surgical eval. replace vit d prognosis is guarded- seen and examined w/ rN time spent 30 minutes Plan see above Attestations Medical Necessity Statement*: multi-organ failure in ICU Time Spent in Patient Care: 16 - 35 minutes (>than 50% of time spent in counselling and/or direct pt care on unit). Coding Level of Care Code Acute Clam Grader for Rosalba Sandoval Diagnoses PATTIE (acute kidney injury) N17.9
[2022-03-23] MEDS: ergocalciferol (vitamin D2) 50,000 Unit Capsule 50000 UNIT PO (09:37)
[2022-03-23] MEDS: albumin 12.5 GM/50 ML VIAL IV (11:50)
[2022-03-23 11:57] LABS: Anti-streptolysin O 54 IU/mL (<200)
[2022-03-23 12:04] LABS: Glucose Point of Care 191 mg/dL (70-110)
--- NOTE | 2022-03-23 12:09 | USR_ITS ---
PROCEDURE INFORMATION: Exam: US Abdomen, Limited; Right Upper Quadrant Exam date and time: 03/23/2022 3:33 PM Age: 72 years old Clinical indication: Abnormal findings; Abnormal lab test; Elevated liver enzymes; Additional info: Rule out cholecystitis TECHNIQUE: Imaging protocol: Real time ultrasound of the abdomen with image documentation. Limited exam focused on the right upper quadrant. COMPARISON: [place] [id number] 03/22/2022 3:28 PM FINDINGS: Liver: Hepatic parenchymal echogenicity is within normal limits. No masses. Gallbladder: Intraluminal sludge. No shadowing gallstones are seen. There is no gallbladder wall thickening. Biliary ducts: Normal. No stones. No dilation. Pancreas: Visualized pancreas is unremarkable. Right kidney: The right kidney measures 11.3 cm in length. No mass. No hydronephrosis. US/US gall bladder [id number] IMPRESSION: No sonographic findings to suggest acute cholecystitis.
--- NOTE | 2022-03-23 12:09 | P.PN_ITS ---
Subjective Subjective: CT head left parietal encephalomalacia CT abdomen pelvis unremarkable gallbladder distention Worsening liver enzymes requested ultrasound of gallbladder to rule out cholecystitis Afebrile I have asked BJ to discontinue vasopressin and keep him on Levophed only FiO2 40% Constipation Will give 1 dose of lactulose Hemodialysis today Cultures negative Hypercapnia improved Patient is still acidotic secondary to uremia Calcium 7.6 Urine output 52 mL Vitals/I&O/Wt Last Vital Signs Temp 97.7 F 03/23/22 12:00 Pulse 122 H 03/23/22 12:00 Resp 22 H 03/23/22 12:00 BP 139/98 03/23/22 12:00 Pulse Ox 92 03/23/22 12:00 O2 Del Method 03/23/22 12:00 O2 Flow Rate 5 03/19/22 15:30 FiO2 36 03/23/22 12:00 03/22/22 03/23/22 03/23/22 22:59 06:59 14:59 Intake Total 1092.711 / 2673.895 853.528 / 3527.423 783.938 / 783.938 Output Total 1810 / 1867 42 / 1909 Balance -717.289 / 806.895 811.528 / 1618.423 783.938 / 783.938 Weight last 48 hrs Weight 95.663 kg Weight 94.1 kg Weight 95.481 kg Weight 90.1 kg Physical Exam Narrative: Patient clinically looks extremely fluid overloaded Bilateral upper arm swelling Abdomen without abdominal sounds With sedation vacation patient was arousable yesterday Bilateral assisted breath sounds Mild rhonchi and crackles at the bases FiO2 40% Limited neuro exam Lower extremity 3+ pitting edema Urinary Catheter Management: Marrufo: Cath Placed During This Visit: yes Reason for Continuing Indwelling Catheter: Accurate Measurement of Urinary Output in Critically Ill Patients Urinary Catheter Date of Insertion: 03/19/22 Data : 03/23/22 05:30 03/23/22 05:30 A&P Assessment and plan (1) ATN (acute tubular necrosis): (2) PATTIE (acute kidney injury): (3) Congestive heart failure: (4) Septic shock: (5) DKA (diabetic ketoacidosis): Qualifiers: Diabetes mellitus complication detail: with coma 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 (6) Pneumonia: Qualifiers: Laterality: right Lung location: lower lobe of lung Pneumonia type: due to unspecified organism Qualified Code(s): J18.9 - Pneumonia, unspecified organism (7) Metabolic encephalopathy: (8) Abnormal transaminases: (9) Metabolic acidosis: (10) Atrial fibrillation with rapid ventricular response: (11) Acute on chronic respiratory failure with hypoxia and hypercapnia: (12) Type 2 myocardial infarction: Plan Respiratory failure requiring mechanical ventilation Minimal vent settings on FiO2 40% PEEP 8 PCO2 32 will decrease resprate back to 14 As we are able to wean him off vasopressors we will do weaning trial Septic shock persistent leukocytosis Turn off vasopressin today Continue Levophed Dose of infection is pneumonia Rule out gallbladder infection Metabolic acidosis related to uremia and lactic acidemia Bicarb drip has been turned off He might benefit from p.o. bicarb tablets We will follow-up with nephro recommendations CT abdomen pelvis unremarkable no Signs of nephrolithiasis or kidney stone Constipation: We will give 1 dose of lactulose today I asked BJ to start very low-dose TPN do not go above 40 mL/h Abnormal transaminases rule out cholecystitis we will request gallbladder ultrasound Cardiomyopathy related to sepsis Will need angiogram once extubated A. fib RVR Repeat EKG today Continue heparin Concern for PE Left parietal and cath ablation Possible ischemic event at home before presentation Will evaluate after extubation He did respond to some extent with sedation vacation yesterday ATN: Patient is requiring dialysis with temporary dialysis catheter No urine output Hypocalcemia another dose of calcium gluconate given today Full code Start TPN low-dose DVT prophylaxis covered with therapeutic heparin Bilateral upper extremity swelling check venous Doppler to rule out DVT Attestations Medical Necessity Statement*: Continue ICU management Critical Care Time: 40 Coding Level of Care Code Acute Hand Binder Stripper for g Fwd Diagnoses ATN (acute tubular necrosis) N17.0 PATTIE (acute kidney injury) N17.9 Congestive heart failure I50.9 Septic shock A41.9; R65.21 DKA (diabetic ketoacidosis) E09.11 Diabetes mellitus complication detail: with coma 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
--- NOTE | 2022-03-23 12:23 | USR_ITS ---
PROCEDURE INFORMATION: Exam: US Duplex Right Lower Extremity Veins, Limited Exam date and time: 03/23/2022 3:43 PM Age: 72 years old Clinical indication: Swelling (edema) of limb; Upper extremity, right; Additional info: Bilateral arm swelling TECHNIQUE: Imaging protocol: Real-time Duplex ultrasound of the Right Lower Extremity with 2-D givens scale, color Doppler flow and spectral waveform analysis with image documentation. Limited exam was focused on the right lower extremity veins. COMPARISON: US renal BI* [id number] 03/21/2022 3:15 PM FINDINGS: Right deep veins: Unremarkable. The common femoral, femoral, proximal profunda femoral and popliteal veins are patent without thrombus. Normal Doppler waveforms. Normal compressibility and/or augmentation response. Right superficial veins: Unremarkable. Saphenofemoral junction is patent without thrombus. Soft tissues: Unremarkable. US/[place] [id number] IMPRESSION: No evidence of deep vein thrombosis.
--- NOTE | 2022-03-23 12:24 | ECG_ITS ---
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 Measurements Intervals [place] Rate: 122 P: FL: QRS: -47 QRSD: 108 T: 94 QT: 296 QTc: 423 Interpretive Statements ATRIAL FLUTTER/TACHYCARDIA WITH RAPID VENTRICULAR RESPONSE LEFT ANTERIOR FASCICULAR BLOCK [QRS AXIS <= -45, QR IN I, RS IN II] POSSIBLE ANTERIOR MYOCARDIAL INFARCTION , PROBABLY OLD [30 ms Q WAVE IN V3/V4, OR R < 0.2 mV IN V4] INFERIOR MYOCARDIAL INFARCTION , PROBABLY OLD [40+ ms Q WAVE AND/OR ST/T ABNORMALITY IN II/aVF] Compared to ECG 03/20/2022 13:03:05 Left anterior fascicular block now present Myocardial infarct finding now present Left-axis deviation no longer present Intraventricular conduction delay no longer present T-wave abnormality no longer present Possible ischemia no longer present Electronically Signed On 03-24-2022 22:07:11 CDT by Luciano Trevino M.D. [id number]
[2022-03-23] MEDS: norepinephrine 8 MG in dextrose 5 % 500 ML 41.91 MG IV (13:12)
[2022-03-23 14:08] LABS: Partial Thromboplastin Time 125.4 SECONDS (23.9-36.7)
[2022-03-23 15:17] LABS: Glomerular Bsmt Membrane IGG <1.0 AI
[2022-03-23] MEDS: calcium gluconate 0.9% NaCL 1 GM/50 ML PREMIX IV (15:18)
[2022-03-23] MEDS: sodium bicarbonate 650 mg Tablet NG-TUBE ×2 (15:19→21:21)
[2022-03-23 16:33] LABS: Glucose Point of Care 163 mg/dL (70-110)
--- NOTE | 2022-03-23 16:47 | PM.MISC ---
Miscellaneous Note Purpose of Documentation: Change in CODE STATUS Note: I was in the ICU seeing another patient. patient's would like to change patient's CODE STATUS to DNR and allow natural and would like to speak to a physician. She states that we can continue our current treatment await as keep him intubated. However if his heart ends up stopping on the ventilator they would not want us to do CPR/chest compressions to resuscitate him. She understands what that means and would like to change CODE STATUS to DNR at this time. RN BJ present at bedside during this conversation. Patient's granddaughter also present at bedside. Discussed with Dr. Smith over the phone and he is aware. CODE STATUS changed to allow natural in computer.
[2022-03-23 20:16] LABS: Partial Thromboplastin Time 54.9 SECONDS (23.9-36.7)
[2022-03-23 21:11] LABS: Glucose Point of Care 209 mg/dL (70-110)
[2022-03-24] VITALS (38 sets, daily range): BP systolic 83–124; BP diastolic 57–81; PULSE 106–110; RESP 15–20; TEMP 36.7; O2SAT 92–96
[2022-03-24 00:27] LABS: Glucose Point of Care 169 mg/dL (70-110)
[2022-03-24] MEDS: insulin lispro 100 unit/1 mL SUBCUT ×2 (00:47→04:26)
[2022-03-24] MEDS: levalbuterol 1.25 mg/3 mL Neb INHALATION ×2 (03:27→08:17)
[2022-03-24] MEDS: chlorhexidine gluconate 4% Btl 118 mL 1 APPLIC TOPICAL (03:39)
[2022-03-24 03:59] LABS: ABG PCO2 40.5 mmHg (35-45); ABG PH Result 7.25 (7.35-7.45); Arterial Blood Gas Hematocrit 36.7 % (42-52); Base Excess ABG -9.2 mmol/L (-2.0-2.0); Blood Gas Allen Test Pos; Blood Gas Sample Site Radial, left; Blood Gas Sample Type Arterial; HCO3 ABG 17.6 mmol/L (22-26); Oxygen Device VENT; PO2 ABG 87.9 mmHg (80.0-100.0)
[2022-03-24 04:24] LABS: Glucose Point of Care 154 mg/dL (70-110)
[2022-03-24 05:10] LABS: Partial Thromboplastin Time 29.4 SECONDS (23.9-36.7)
[2022-03-24] MEDS: heparin 5,000 unit/mL INJ 1 mL IV (05:36)
[2022-03-24 06:13] LABS: Basophils # 0.1 10^3/uL (0.0-0.1); Basophils % 0.8 %; Hematocrit 36.9 % (42.0-52.0); Hemoglobin 11.9 g/dL (11.7-16.6); Lymphocytes # 1.2 10^3/uL (0.8-4.8); Lymphocytes % 6.6 %; Mean Corpuscular HGB Conc 32.2 g/dL (30.0-36.0); Mean Corpuscular Hemoglobin 29.3 pg (28.0-34.0); Mean Corpuscular Volume 90.9 fl (80-94); Mean Platelet Volume 11.9 fL (7.4-10.4); Monocytes # 1.2 10^3/uL (0.2-0.9); Monocytes % 6.5 %; Neutrophils # 14.14 10^3/uL (1.8-7.7); Neutrophils % 77.3 %; Nucleated Red Blood Cells # 0.3 /100WBC; Nucleated Red Blood Cells % 1.6 %; Platelet Count 146 10^3/cmm (130-400); Red Blood Count 4.06 10^6/uL (4.1-5.3); Red Cell Distribution Width 14.9 % (12.1-15.1); White Blood Count 18.3 10^3/uL (4.0-10.0)
[2022-03-24 06:42] LABS: Alanine Aminotransferase 635 U/L (0-41); Alkaline Phosphatase 192 U/L (40-130); Blood Urea Nitrogen 46 mg/dL (8-23); Calcium 7.4 mg/dL (8.5-10.5); Carbon Dioxide 17 mmol/L (22-29); Chloride 89 mmol/L (98-107); Creatinine Clr Calc Pharmacy 19.5264; Globulin 3.1 g/dL (1.3-4.6); Glucose 166 mg/dL (65-115); Magnesium 1.7 mg/dL (1.7-2.3); Osmolality Calculated 274 mOsm/kg (285-295); Sodium 124 mmol/L (136-145); Total Bilirubin 0.8 mg/dL (0.15-1.2); Total Protein 5.1 g/dL (6.6-8.7)
--- NOTE | 2022-03-24 06:50 | P.PN_ITS ---
Subjective Subjective: remains intubated, sedated, on and off -low dose pressors. remains swollen. Medications: Reviewed: Yes Medication Review Details: Current Medications Acetaminophen (Acetaminophen 325 Mg Tablet) 650 mg PO Q6H PRN PRN Reason: MILD PAIN Last Admin: 03/20/22 20:21 Dose: 650 mg Aspirin (Aspirin 81 Mg Chew Tablet) 81 mg PO DAILY [facility] Last Admin: 03/23/22 08:35 Dose: 81 mg Atorvastatin Calcium (Atorvastatin 40 Mg Tablet) 20 mg PO BEDTIME [facility] Last Admin: 03/22/22 20:08 Dose: 20 mg Budesonide (Budesonide 0.5 Mg/2 Ml Neb) 0.5 mg INHALATION BID.RESPIRATORY [facility] Last Admin: 03/23/22 20:27 Dose: 0.5 mg Chlorhexidine Gluconate (Chlorhexidine Gluconate 4% Btl 118 Ml) 1 applic TOPICAL 0100 [facility] Last Admin: 03/24/22 03:39 Dose: 1 bottle Dextrose (Dextrose 50% Syringe 50 Ml) 25 ml IVP ONCE PRN; Protocol PRN Reason: hypoglycemia protocol Dextrose (Dextrose 50% Syringe 50 Ml) 50 ml IVP PRN PRN; Protocol PRN Reason: hypoglycemia protocol Dextrose (Dextrose 50% Syringe 50 Ml) 25 ml IVP ONCE PRN; Protocol PRN Reason: hypoglycemia protocol Dextrose (Dextrose 50% Syringe 50 Ml) 50 ml IVP PRN PRN; Protocol PRN Reason: hypoglycemia protocol Dextrose (Dextrose 50% Syringe 50 Ml) 25 ml IVP ONCE PRN; Protocol PRN Reason: hypoglycemia protocol Dextrose (Dextrose 50% Syringe 50 Ml) 50 ml IVP PRN PRN; Protocol PRN Reason: hypoglycemia protocol Docusate Sodium (Docusate Sodium 100 Mg Capsule) 100 mg PO BID [facility] Last Admin: 03/23/22 18:01 Dose: Not Given Ergocalciferol (Ergocalciferol (Vitamin D2) 50,000 Unit Capsule) 50,000 unit PO Q7D [facility] Last Admin: 03/23/22 09:37 Dose: 50,000 unit Glucagon (Glucagon 1 Mg/Ml Inj 1 Ml) 1 mg IM ONCE PRN; Protocol PRN Reason: Adult Acute Hypoglycemia Prot Glucagon (Glucagon 1 Mg/Ml Inj 1 Ml) 1 mg IM ONCE PRN; Protocol PRN Reason: Adult Acute Hypoglycemia Prot. Glucagon (Glucagon 1 Mg/Ml Inj 1 Ml) 1 mg IM ONCE PRN; Protocol PRN Reason: Adult Acute Hypoglycemia Prot. Heparin Sodium (Porcine) (Heparin 5,000 Unit/Ml Inj 1 Ml) 0 unit IV PRN PRN; Protocol PRN Reason: Heparin weight-base protocol Last Admin: 03/24/22 05:36 Dose: 4,300 unit Dextrose (D5w) 500 mls @ 100 mls/hr IV ONCE PRN; Protocol PRN Reason: Adult Acute Hypoglycemia Prot Last Infusion: 03/21/22 19:02 Dose: Infused Insulin Human Regular 250 unit (/ Sodium Chloride) 252.5 mls @ 0 mls/hr IV .Q0M PIO; Protocol Last Titration: 03/21/22 18:40 Dose: Infused Imipenem/Cilastatin Sodium 250 (mg/ Sodium Chloride) 100 mls @ 200 mls/hr IV Q6H PIO; Protocol Last Infusion: 03/24/22 05:23 Dose: Infused Fentanyl 1,000 mcg/ Sodium (Chloride) 100 mls @ 0 mls/hr IV .Q0M PIO; Protocol Last Titration: 03/24/22 03:20 Dose: 75 mcg/hr, 7.5 mls/hr Propofol (Diprivan) 1,000 mg in 100 mls @ 0 mls/hr IV .Q0M PIO; Protocol Last Titration: 03/23/22 20:00 Dose: 10 mcg/kg/min, 5.01 mls/hr Esmolol HCl (Brevibloc Drip) 2,500 mg in 250 mls @ 0 mls/hr IV .Q0M PIO; Protocol Last Titration: 03/20/22 00:00 Dose: 0 mcg/kg/min, 0 mls/hr Amiodarone HCl 900 mg/Dextrose/ IV Miscellaneous Supplies 518 mls @ 0 mls/hr IV .Q0M PIO; Protocol Last Admin: 03/23/22 12:47 Dose: 0.5 mg/min, 17.27 mls/hr Heparin Sodium/Sodium Chloride (Heparin Drip) 25,000 unit in 500 mls @ 0 mls/hr IV .Q0M PIO; Protocol Last Titration: 03/24/22 05:24 Dose: 15.98 unit/kg/hr, 27 mls/hr Dextrose (D5w) 500 mls @ 100 mls/hr IV ONCE PRN; Protocol PRN Reason: Adult Acute Hypoglycemia Prot Norepinephrine Bitartrate 8 mg (/ Dextrose) 508 mls @ 0 mls/hr IV .Q0M PIO; Protocol Last Titration: 03/24/22 06:36 Dose: 2 mcg/min, 7.62 mls/hr Furosemide 100 mg/ Sodium (Chloride) 50 mls @ 2.5 mls/hr IV .Q20H PIO Last Admin: 03/22/22 20:49 Dose: 5 mg/hr, 2.5 mls/hr Epinephrine HCl 2.5 mg/ Sodium (Chloride) 252.5 mls @ 0 mls/hr IV .Q0M PIO; Protocol Last Titration: 03/22/22 03:41 Dose: 0 mcg/kg/min, 0 mls/hr Vasopressin 40 unit/ Sodium (Chloride) 40 mls @ 0.03 mls/min IV CONT PIO Last Admin: 03/23/22 00:39 Dose: 0.03 mls/min Dextrose (D5w) 500 mls @ 100 mls/hr IV ONCE PRN; Protocol PRN Reason: Adult Acute Hypoglycemia Prot Albumin Human (Albumin) 12.5 gm in 50 mls @ 60 mls/hr IV PRN PRN PRN Reason: Hypotension and/or symptomatic Last Infusion: 03/23/22 19:00 Dose: Infused Insulin Human Lispro (Insulin Lispro 100 Unit/1 Ml) 0 unit SUBCUT Q4H [facility]; Protocol Last Admin: 03/24/22 04:26 Dose: 4 unit Lactobacillus Acidophilus (Lactobacillus 1 Tablet) 1 tab PO BID PIO Last Admin: 03/23/22 18:01 Dose: Not Given Lactulose (Lactulose Oral Liq 20 Gm/30 Ml Udc) 10 gm NG-TUBE DAILY PIO Last Admin: 03/23/22 08:44 Dose: 10 gm Levalbuterol HCl (Levalbuterol 1.25 Mg/3 Ml Neb) 1.25 mg INHALATION Q4H.RESPIRATORY PIO Last Admin: 03/24/22 03:27 Dose: 1.25 mg Pantoprazole Sodium (Pantoprazole Dr 40 Mg Tablet) 40 mg PO DAILY PIO Last Admin: 03/23/22 08:35 Dose: 40 mg Rocuronium Oscar (Rocuronium 10 Mg/Ml Inj 5ml) 50 mg IVP Q1H PRN PRN 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 Last Admin: 03/19/22 18:17 Dose: 50 mg Sodium Bicarbonate (Sodium Bicarbonate 650 Mg Tablet) 650 mg NG-TUBE TID PIO Last Admin: 03/23/22 21:21 Dose: 650 mg Vitals/I&O/Wt Last Vital Signs Temp 98.1 F 03/24/22 00:45 Pulse 106 H 03/24/22 06:15 Resp 17 03/24/22 05:37 BP 83/57 03/24/22 06:15 Pulse Ox 95 03/24/22 06:00 O2 Del Method 03/24/22 06:15 O2 Flow Rate 5 03/19/22 15:30 FiO2 36 03/24/22 05:37 03/23/22 03/23/22 03/24/22 14:59 22:59 06:59 Intake Total 1180.023 / 1180.023 819.814 / 1999.837 892.998 / 2892.835 Output Total 2342 / 2342 40 / 2382 Balance 1180.023 / 1180.023 -1522.186 / -342.163 852.998 / 510.835 Weight last 48 hrs Weight 107.6 kg Weight 95.663 kg Weight 94.1 kg Physical Exam Narrative: sedated on vent- off pressors now vent TV 500, fio2=35%, RR 14, PEEP 8 heent- nc/at, lungd crackles b/l heart irreg irreg, tachy abd soft, nt, + bs ext 3+ edema neuro-sedtaed left femoral dialysis access Urinary Catheter Management: Marrufo: Cath Placed During This Visit: yes Reason for Continuing Indwelling Catheter: Accurate Measurement of Urinary Output in Critically Ill Patients Urinary Catheter Date of Insertion: 03/19/22 Data : 03/24/22 06:00 03/23/22 05:30 Micro: Microbiology 03/19/22 17:40 Gram Stain - Final Sputum - Endotracheal Tube Aspirate Sputum Culture - Final Staphylococcus aureus A&P Assessment and plan (1) PATTIE (acute kidney injury): 72 yr old man 1. PATTIE- normal cr 0.9 in 2019. cr 1.2 on admission. nw/ PATTIE stage 3- anuric -u/a -turbid- 2+ gluc, 1+ ketones, large blood, 2+ bact. ur na 53 -most likely ATN -remains anuric -renal us rt =11.8 cm, left 12.4 cm- normal renal us -normal ck -normal complements -Anti DsDNA neg, other serologies are pending -s/p SUF yesterday repeat HD today 3.5 hrs, 3k, remove 3l 2.acid/ base status- metabolic acidosis w/o compensation- repeat HD today vent per pulm 3. DM- improved glucose control 4. Septic shock- renal dose abx - CRP 695 -wbc remains 18 ct noted-. Pulmonary consolidative changes are noted adjacent to the bilateral pleural effusions which may be related to compressive atelectasis versus superimposed pneumonia. Clinical correlation and follow-up should be obtained.. 5. cardiogenic shock- per medicine 6. hyponatremia- sodium last was 124 -normal tsh. -high ur na of 53 -etiology likely PATTIE -monitor on dialysis 7. rising LFT's and abnormal Gallbladder on CT- consider surgical eval. replace vit d prognosis is guarded-pt is DNR. if can not tolerate IHD, would consider comfort care seen and examined w/ rN time spent 30 minutes Plan see above Attestations Medical Necessity Statement*: pattie, vdrf, inc lfts Time Spent in Patient Care: 16 - 35 minutes (>than 50% of time spent in counselling and/or direct pt care on unit) . Coding Level of Care Code Acute Hvac Design Engineer for Rosalba Sandoval Diagnoses PATTIE (acute kidney injury) N17.9
[2022-03-24 07:10] LABS: Aspartate Amino Transferase 3253 U/L (0-40)
[2022-03-24 07:12] LABS: Anion Gap 23.5 (5-19); Potassium 5.5 mmol/L (3.5-5.1)
[2022-03-24 07:14] LABS: Phosphorus 7.7 mg/dL (2.5-4.5)
[2022-03-24] MEDS: heparin drip 25,000 UNIT/500 ML PREMIX 27 UNIT IV (07:53)
--- NOTE | 2022-03-24 08:07 | USCV_ITS ---
Randal Banks Age: 72 Gender: M : 1950 Exam Date: 03/24/2022 07:24 Ordering Phys: Bear Boss MD Technologist: Olu Larsen [place]am [place] [facility] [place]: cva BP: 96 / 64 HR: 106 Rhythm: Sinus Technical Quality: Adequate MEASUREMENTS (Male / Female) Normal Values 2D ECHO LV Diastolic Diameter PLAX 4.2 cm 4.2 - 5.9 / 3.9 - 5.3 cm LV Systolic Diameter PLAX 3.5 cm IVS Diastolic Thickness 1.1 cm 0.6 - 1.0 / 0.6 - 0.9 cm IVS Systolic Thickness 1.9 cm LVPW Diastolic Thickness 1.4 cm 0.6 - 1.0 / 0.6 - 0.9 cm LVPW Systolic Thickness 1.8 cm LVOT Diameter 2.0 cm LV Ejection Fraction 2D Teich 37.2 % LV Ejection Fraction MOD 2C -10.4 % LV Ejection Fraction 2C AL -9.5 % LA Diameter 3.8 cm IVC Diameter 2.4 cm M-MODE Aortic Annulus Diameter 4.1 cm LA Ao Ratio MM 1.0 DOPPLER AV Peak Velocity 93.0 cm/s LVOT Peak Velocity 47.0 cm/s AV Area Cont Eq vti 1.3 cm squared AV Area Cont Eq pk 1.6 cm squared MV Area PHT 5.0 cm squared Mitral E to A Ratio 2.6 MV E' Velocity 41.5 cm/s Mitral E to MV E' Ratio 7.3 Mitral E to LV E' Lateral Ratio 6.2 Mitral E to LV E' Septal Ratio 9.3 TR Peak Velocity 279.0 cm/s TR Peak Gradient 31.1 mmHg TV Peak E Velocity 93.0 cm/s Right Atrial Pressure 3.0 mmHg Pulmonary Artery Systolic Pressu 34.1 mmHg PV Peak Velocity 63.0 cm/s FINDINGS Left Ventricle Left ventricle is normal in size. LV systolic function is severely reduced with EF of 10 to 15%. Severe global hypokinesis is seen. Right Ventricle RV is severely hypokinetic Right Atrium Normal in size Left Atrium Left atrium is dilated Mitral Valve Structurally normal mitral valve. Moderate mitral regurgitation Aortic Valve Aortic valve is thickened. No significant stenosis. Mild aortic regurgitation. Tricuspid Valve Moderate to severe tricuspid regurgitation. RVSP is 35 to 40 mmHg. Mild pulmonary hypertension Pulmonic Valve Not well-visualized Pericardium Pleural effusion is seen. Aorta Normal in size IVC CONCLUSIONS Systolic function severely reduced with EF of 10 to 15%. Severe global hypokinesis is seen. RV is severely hypokinetic Left atrial dilation Moderate mitral regurgitation Mild aortic regurgitation Moderate to severe tricuspid regurgitation. Mild pulmonary hypertension Pleural effusion is seen No complete echoes to compare. LV systolic function is severely reduced still Luciano Trevino MD (Electronically Signed) Final Date: 24 March 2022 12:30 S
[2022-03-24] MEDS: budesonide 0.5 mg/2 mL Neb INHALATION (08:17)
[2022-03-24 09:07] LABS: Partial Thromboplastin Time 102.2 SECONDS (23.9-36.7)
[2022-03-24 09:17] LABS: Ketone (Acetest) Serum Negative (Negative)
[2022-03-24 09:18] LABS: Lactate (Lactic Acid level) 2.5 mmol/L (0.5-2.2)
[2022-03-24] MEDS: sodium bicarbonate 650 mg Tablet NG-TUBE (09:55)
[2022-03-24] MEDS: pantoprazole DR 40 mg Tablet PO (09:55)
[2022-03-24] MEDS: docusate sodium 100 mg Capsule PO (09:56)
[2022-03-24] MEDS: vancomycin 1,250 MG/250 ML PIGGYBACK 200 MG IV (09:56)
[2022-03-24] MEDS: lactulose oral liq 20 gm/30 mL UDC 10 GM NG-TUBE (09:56)
[2022-03-24] MEDS: aspirin 81 mg Chew Tablet PO (09:56)
[2022-03-24] MEDS: lactobacillus 1 Tablet 1 TAB PO (09:57)
--- NOTE | 2022-03-24 10:18 | PC.NURSE ---
mts notified of pending withdrawl of care
--- NOTE | 2022-03-24 10:39 | PC.NURSE ---
extubated to comfort care at this time .. family at bedside
--- NOTE | 2022-03-24 10:50 | PC.NURSE ---
doctor notifed and family at bedside at this time ... MTS notified
--- NOTE | 2022-03-24 10:57 | PC.SOCIAL ---
IMM Update pg 2 of IMM not updated. Patient has transitioned to comfort care and will be terminally extubated.
--- NOTE | 2022-03-24 11:01 | PM.DDS ---
Discharge Providers DDS Date of Admission: 03/19/22 17:02 Date Summary Completed: 03/24/22 Attending Provider at Admission: Ml Fowler MD Attending Provider at Discharge: Brie Smith MD Primary Care Provider: DO OTILIA Gordon Diagnoses Hospital Diagnoses (1) PATTIE (acute kidney injury): Reason for Visit Reason for Visit Dr. Suresh sent for blood sugar Summary Summary Summary: 72-year male who was intubated at the time of admission for severe metabolic acidosis, septic shock, developed ATN, temporary dialysis cath was placed he did receive multiple session of dialysis, he remains fluid overloaded, for his DKA insulin drip was started, acidosis improved with bicarb drip Family was kept updated on diagnosis, Family decided to pursue comfort care he was terminally extubated time of 1050 Additional Data Confirmation of as documented by pronouncing clinician: no pulse, no respirations, no heart sounds and pupils fixed and dilated Family: at bedside Additional persons at bedside: nursing staff Attending/PCP notified?: Attending notified Was code activated?: No Autopsy requested?: No Advance directives?: No Hospice patient?: No Discharge Plan Discharge Patient Disposition: Condition: Stable Prescriptions: No Action diclofenac sodium 75 mg tablet,delayed release (DR/EC) 75 mg PO BID Qty: 20 0RF Rx Instructions: for joint pain hydrocodone-acetaminophen 5-325 mg tablet 1 tab PO Q4H PRN (Reason: Pain) tamsulosin 0.4 mg capsule 0.4 mg PO BID amlodipine 10 mg tablet 10 mg PO DAILY simvastatin 20 mg tablet 20 mg PO BEDTIME furosemide 20 mg tablet 20 mg PO DAILY albuterol sulfate 90 mcg/actuation HFA aerosol inhaler 2 puff INHALATION Q6H PRN (Reason: Shortness Of Breath Or Wheezing) metoprolol tartrate 25 mg tablet 25 mg PO BID Referrals: Malissa Suresh DO [Primary Care Provider] - DS Attestations Time Spent in /Discharge Care*: less than 30 min Quality - AMI: AMI present?: No Quality - Stroke: CVA present?: No Quality - VTE: VTE present?: No Coding Level of Care Code Acute Manager User Experience for g Fwd Diagnoses PATTIE (acute kidney injury) N17.9
--- NOTE | 2022-03-24 11:47 | PC.NURSE ---
pending call from saving site at this time
[2022-03-25 14:52] LABS: Anti-Nuclear Antibody Screen NEGATIVE (NEGATIVE)
[2022-03-26 16:19] LABS: ANCA Screen NEGATIVE (NEGATIVE)
== END 2022-03-24 10:50 | disposition home or self-care (01) | DRG 871 ==
LOC: ER 14:33 → ICU 14:59
PROVIDERS: Internal Medicine; Internal Medicine Nephrology; Admitting Provider Hospitalist; Emergency Provider Emergency Medicine; PCP Family Medicine; Visit Provider Internal Medicine
DX: A41.9 Sepsis, unspecified organism (principal); E09 Drug or chemical induced diabetes mellitus; R65.21 Severe sepsis with septic shock; G93.41 Metabolic encephalopathy; J96.22 Acute and chronic respiratory failure with hypercapnia; J96.21 Acute and chronic respiratory failure with hypoxia; I50.21 Acute systolic (congestive) heart failure; J18.9 Pneumonia, unspecified organism; I21.A1 Myocardial infarction type 2; N17.0 Acute kidney failure with tubular necrosis; R57.0 Cardiogenic shock; I13.0 Hypertensive heart and chronic kidney disease with heart failure and stage 1 through stage 4 chronic kidney disease, or unspecified chronic kidney disease; J44.1 Chronic obstructive pulmonary disease with (acute) exacerbation; J44.0 Chronic obstructive pulmonary disease with (acute) lower respiratory infection; I42.8 Other cardiomyopathies; E87.4 Mixed disorder of acid-base balance; T38.0X5A Adverse effect of glucocorticoids and synthetic analogues, initial encounter; Z86.16 Personal history of COVID-19; Z99.81 Dependence on supplemental oxygen; F17.220 Nicotine dependence, chewing tobacco, uncomplicated; F10.10 Alcohol abuse, uncomplicated; I48.91 Unspecified atrial fibrillation; M10.9 Gout, unspecified; E78.5 Hyperlipidemia, unspecified; N18.9 Chronic kidney disease, unspecified; M19.90 Unspecified osteoarthritis, unspecified site; N40.0 Benign prostatic hyperplasia without lower urinary tract symptoms; E86.0 Dehydration; Z82.49 Family history of ischemic heart disease and other diseases of the circulatory system; Z51.5 Encounter for palliative care; Z66 Do not resuscitate; E83.51 Hypocalcemia; K59.00 Constipation, unspecified; G93.89 Other specified disorders of brain; I95.9 Hypotension, unspecified
CPT/HCPCS: 36415; 36416; 36592; 36600; 51702; 70450; 71045; 71250; 74176; 76705; 76770; 80048; 80051; 80053; 80061; 80202; 81001; 82009; 82306; 82330; 82436; 82550; 82553; 82803; 82805; 82962; 83036; 83520; 83605; 83690; 83735; 83880; 83930; 84100; 84133; 84145; 84300; 84443; 84484; 84550; 85007; 85025; 85378; 85610; 85730; 86036; 86038; 86060; 86140; 86160; 86225; 86403; 86706; 86803; 87040; 87070; 87077; 87086; 87186; 87205; 87340; 87449; 87635; 87641; 87804; 87806; 93005; 93306; 93308; 93970; 93971; 94002; 94003; 94640; 94664; 94799; 96365; 96366; 96367; 96372; 96375; 99291; 99292; J0171; J0282; J0610; J0692; J0743; J1160; J1644; J1650; J1815; J1940; J1956; J2250; J2704; J2720; J3010; J3370; J3480; J3490; J7030; J7040; J7050; J7060; J7614; J7626; J7644; P9047; Q3014